=== PATIENT | female | born 1945 | race Caucasian/White ===

== ENCOUNTER 2024-06-23 23:31 | Emergency (ER) | payer MEDICARE, BC, SELFPAY ==
[2024-06-23 23:35] VITALS: BP 147/78
[2024-06-24] VITALS: BP 136/75
[2024-06-24 00:10] LABS: % Basophils 0.3 % (0-2); % Eosinophils 1.4 % (0-6); % Immature Granulocytes 0.3 % (0-0.5); % Lymphocytes 18.1 % (20.5-51.1); % Monocytes 10.2 % (1.7-9.3); % Neutrophils 69.7 % (42.2-75.2); Absolute Eosinophils 0.1 10^3/uL (0-0.7); Absolute Lymphocytes 1.1 10^3/uL (1.2-3.4); Absolute Monocytes 0.6 10^3/uL (0.1-0.6); Absolute Neutrophils 4.1 10^3/uL (1.4-6.5); Hematocrit 32.3 % (37.0-47.0); Hemoglobin 11.4 g/dL (12.0-16.0); Mean Corp Hgb Conc. 35.3 g/dL (33.0-37.0); Mean Corpuscular Hgb 31.5 pg (27.0-31.0); Mean Corpuscular Volume 89.2 fL (81.0-99.0); Mean Platelet Volume 9.2 fL (7.4-10.4); Nucleated Red Blood Cells % 0 %; Platelet Count 273 10^3/uL (130-400); Red Blood Cell Count 3.62 10^6/uL (4.20-5.40); Red Cell Dist. Width 12.9 % (11.5-14.5); White Blood Cell Count 5.8 10^3/uL (4.8-10.8)
--- NOTE | 2024-06-24 00:16 | ED.GENMED ---
History of Present Illness
General
Chief Complaint: Change Level of Consciousness
Source: patient, family and witness
Exam Limitations: none
Time Seen by Provider: 06/23/24 23:36
Nursing documentation reviewed up to this point in time: agreed with
History of Present Illness
History of Present Illness:
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
did not strike her head no vomiting no bowel or bladder incontinence no tongue bite now feels a little bit dizzy with a dry mouth but no other complaints no chest pain no shortness of breath no abdominal pain no diarrhea no dysuria or frequency no
history of seizures
Past History
Past History
ED Past Medical History: Other (Parkinson's); Negative Seizures
ED Past Surgical History: Brain (Deep brain)
Social History
Tobacco: Non-smoker
Alcohol: Occasional
Drug: None
Personal:
Living: with family
Employment: Retired
Review of Systems
Review of Systems
All Other Systems: Not applicable
Constitutional: Denies fever or fatigue
EENT: Reports no symptoms
Respiratory: Reports no symptoms
Cardiac: Reports no symptoms
ABD/GI: Reports no symptoms; Denies nausea or diarrhea
: Reports no symptoms
Neurological: Reports dizzy; Denies headache
Endocrine: Reports no symptoms
Phy Exam
Physical Exam
Physical Exam:
Physical Exam
General: no apparent distress, not acutely ill
Neck: Dry lips no tongue bite
Heart: s1/s2 regular rate and rhythm, no murmur. equal radial pulses.
Lungs: no acute respiratory distress. clear bilaterally
Abdomen: Not tender
Neuro: alert and oriented. no focal neurological deficits
Skin: no rash
Psychiatric: well kept. interactive and cooperative
Extremities: no edema.
Course
Orders/Labs/Results
Orders:
Orders
06/23/24 23:58
Alcohol Urgent
Complete Blood Count/With Diff Urgent
Comprehensive Metabolic Panel Urgent
Troponin I Urgent
06/24/24 00:09
0.9% Sodium Chloride 1000 ml [Nss] 1,000 ml IV BOLUS
Abnormal Lab Results
06/23/24
23:58
RBC 3.62 L 10^6/uL
(4.20-5.40)
Hgb 11.4 L g/dL
(12.0-16.0)
Hct 32.3 L %
(37.0-47.0)
MCH 31.5 H pg
(27.0-31.0)
Absolute Lymphs (auto) 1.1 L 10^3/uL
(1.2-3.4)
Lymphocytes % 18.1 L %
(20.5-51.1)
Monocytes % 10.2 H %
(1.7-9.3)
Carbon Dioxide 21 L mmol/L
(22-30)
BUN 18 H mg/dl
(7-17)
Glucose 108 H mg/dl
(70-99)
06/23/24 23:58
06/23/24 23:58
Vital Signs
Initial and Last Documented VS:
Initial Vital Signs
Temp Pulse Resp Pulse Ox
98.4 F 92 17 97
06/23/24 23:35 06/23/24 23:35 06/23/24 23:35 06/23/24 23:35
Last Documented Vital Signs
Temp Pulse Resp Pulse Ox
98.4 F 92 17 96
06/23/24 23:35 06/23/24 23:35 06/23/24 23:35 06/23/24 23:47
MDM/Problems Addressed
Differential Diagnosis Includes:
Vasovagal dehydration EtOH intoxication arrhythmia less likely seizure doubt CVA
MDM/Problems Addressed:
Near syncope
Chronic conditions affecting care: Neurological disorder
Acute Exacerbation and/or Progression of Chronic Illness: Neurological disorder
*Pulse Oximetry
Patient hypoxic: no
*EKG
Interpreted by ED Provider?: Yes
Interpretation: abnormal
Comparison EKG: no comparison EKG present
Heart Rate: 78
Rate: normal
Rhythm: sinus
Ischemia: non-specific ST changes
*Victim Witness Administrator Interpretation
Rate: normal
Interpretation: normal
Heart Rate: 78
Rhythm: sinus
*Critical Care Note
Total Time (30-74mins, 75-104mins- exclusive of procedures): Not Applicable
Update Note
Update Note:
Update, patient feeling better after some fluids eating and drinking
No arrhythmia on telemetry normal mental status
ED Attending Note
-
Portions of this chart may have been created with voice recognition software.� Occasional wrong word or��sound alike� substitutions may have occurred due to the inherent limitations of voice recognition software.
Discharge Plan
Departure
Patient Disposition: Home (Routine Discharge)
Date of Disposition: 06/24/24
Time of Disposition: 00:30
Patient with high blood pressure during this ER visit?: No
Condition: Good
Discharge Problem:
Syncope and collapse
Instructions: Syncope (Fainting) (DC)
Referrals:
UNKNOWN - PT DOES,NOT KNOW [Family Provider] -
Activity Restrictions/Additional Instructions:
Drink plenty of fluids limit your alcohol intake
Interventions
Interventions:
*Risk Screen - Suicide Last Done: 06/23/24 23:35
*General Assessment Last Done: 06/23/24 23:35
*Neglect/Abuse Screening Last Done: 06/23/24 23:35
ED- Fall Risk Assessment Last Done: 06/23/24 23:47
ED- Cardiac Assessment Last Done: 06/23/24 23:47
ED- Neurological Assessment Last Done: 06/23/24 23:47
ED-Psychological Assessment Last Done: 06/23/24 23:47
ED- Pulmonary Assessment Last Done: 06/23/24 23:47
Discharge Date and Time
Print Language: CZECH
[2024-06-24] MEDS: NSS 1000 IV (00:18)
[2024-06-24 00:23] LABS: ALT (SGPT) < 10 U/L (0-35); AST (SGOT) 18 U/L (14-36); Albumin 4.1 g/dl (3.5-5.0); Alkaline Phosphatase 103 U/L (38-126); Blood Urea Nitrogen 18 mg/dl (7-17); Calcium 9.2 mg/dl (8.4-10.2); Carbon Dioxide 21 mmol/L (22-30); Chloride 106 mmol/L (98-107); Glucose 108 mg/dl (70-99); Potassium 3.7 mmol/L (3.5-5.1); Sodium 136 mmol/L (135-145); Total Bilirubin 0.4 mg/dl (0.2-1.3); Total Protein 6.4 g/dl (6.3-8.2); eGFR > 60.00
[2024-06-24 00:29] LABS: Alcohol None Detected
[2024-06-24 00:30] VITALS: BP 123/80
[2024-06-24 00:36] LABS: Troponin I < 0.012 ng/ml
== END 2024-06-24 01:42 | disposition home or self-care (01) ==
LOC: EMR 23:31
PROVIDERS: EMERGENCY PHYSICIAN Emergency Medicine
DX: R55 Syncope and collapse (principal); G20.A1 Parkinson's disease without dyskinesia, without mention of fluctuations
CPT/HCPCS: 99283; 80053; 82077; 84484; 85025; 93005

== ENCOUNTER 2024-09-23 17:33 | Emergency (ER) | payer MEDICARE, BC, SELFPAY ==
[2024-09-23 17:35] VITALS: BP 144/91; BMI 21.8
[2024-09-23 17:38] VITALS: BP 144/91
[2024-09-23 17:50] LABS: % Basophils 0.3 % (0-2); % Eosinophils 0.7 % (0-6); % Immature Granulocytes 0.2 % (0-0.5); % Lymphocytes 9.4 % (20.5-51.1); % Monocytes 10.3 % (1.7-9.3); % Neutrophils 79.1 % (42.2-75.2); Absolute Lymphocytes 0.6 10^3/uL (1.2-3.4); Absolute Monocytes 0.6 10^3/uL (0.1-0.6); Absolute Neutrophils 4.6 10^3/uL (1.4-6.5); Hematocrit 34.9 % (37.0-47.0); Hemoglobin 12.3 g/dL (12.0-16.0); Mean Corp Hgb Conc. 35.2 g/dL (33.0-37.0); Mean Corpuscular Hgb 30.8 pg (27.0-31.0); Mean Corpuscular Volume 87.5 fL (81.0-99.0); Mean Platelet Volume 9.3 fL (7.4-10.4); Nucleated Red Blood Cells % 0 %; Platelet Count 324 10^3/uL (130-400); Red Blood Cell Count 3.99 10^6/uL (4.20-5.40); Red Cell Dist. Width 12.5 % (11.5-14.5); White Blood Cell Count 5.8 10^3/uL (4.8-10.8)
[2024-09-23 17:55] LABS: Glucose - Point of Care 113 mg/dl (70-99)
[2024-09-23 18:00] VITALS: BP 141/77
[2024-09-23 18:05] LABS: ALT (SGPT) < 10 U/L (0-35); AST (SGOT) 19 U/L (14-36); Albumin 4.3 g/dl (3.5-5.0); Alkaline Phosphatase 110 U/L (38-126); Blood Urea Nitrogen 22 mg/dl (7-17); Calcium 9.9 mg/dl (8.4-10.2); Carbon Dioxide 20 mmol/L (22-30); Chloride 103 mmol/L (98-107); Estimated Creatinine Clearance 40 ml/min; Glucose 132 mg/dl (70-99); Potassium 3.5 mmol/L (3.5-5.1); Sodium 139 mmol/L (135-145); Total Bilirubin 0.9 mg/dl (0.2-1.3); Total Protein 6.8 g/dl (6.3-8.2); eGFR 51.75
[2024-09-23 18:15] LABS: Troponin I 0.022 ng/ml
[2024-09-23 19:00] VITALS: BP 113/57
--- NOTE | 2024-09-23 19:54 | ED.GENMED ---
History of Present Illness
General
Chief Complaint: Fainting/Passed Out
Source: patient and spouse
Exam Limitations: none
Time Seen by Provider: 09/23/24 18:03
Nursing documentation reviewed up to this point in time: agreed with
History of Present Illness
History of Present Illness:
79-year-old female past medical history of Parkinson's presenting to the emergency department today with concerns of a fall from standing prior to arrival. She is unsure if she lost consciousness or had a syncopal episode but did feel somewhat
lightheaded. Denies any head trauma and was witnessed directly by the and ensured that there was no significant trauma and he was able to help catch her before she fell. Otherwise denies any additional symptoms no chest pain palpitations
shortness of breath. No numbness or weakness
Past History
Past History
ED Past Medical History: Other (Parkinson's); Negative Seizures
ED Past Surgical History: Brain (Deep brain)
Social History
Tobacco: Non-smoker
Alcohol: Occasional
Drug: None
Personal:
Living: with family
Employment: Retired
Review of Systems
Review of Systems
Allergies reviewed?: Yes
All Other Systems: ROS reviewed and negative except as documented in HPI and ROS
Phy Exam
Physical Exam
Physical Exam:
GENERAL: Alert , in no apparent distress
EYE: pupils equal and reactive
NECK: Supple, no significant adenopathy.
ENT: o/p clr, mmm.
CARDIAC: Regular rate and rhythm .
LUNGS: Clear breath sounds bilaterally, no acute respiratory distress, no wheezes/rales/rhonchi
ABDOMEN: Soft, without focal tenderness, no r/g, no cvat
NEUROLOGICAL: Alert and oriented, no focal neuro deficits
SKIN: Warm and dry, skin intact.
MUSCULOSKELETAL: No edema, well perfused.
PSYCH: Normal and appropriate interaction.
Course
Orders/Labs/Results
Orders:
Orders
09/23/24 17:42
Electrocardiogram (*1) Urgent
Reason for Study: Syncope
EKG- Treatment ONCE
09/23/24 17:43
Complete Blood Count/With Diff Urgent
Comprehensive Metabolic Panel Urgent
Troponin I Urgent
Abnormal Lab Results
09/23/24 09/23/24
17:43 17:53
RBC 3.99 L 10^6/uL
(4.20-5.40)
Hct 34.9 L %
(37.0-47.0)
Absolute Lymphs (auto) 0.6 L 10^3/uL
(1.2-3.4)
Neutrophils % 79.1 H %
(42.2-75.2)
Lymphocytes % 9.4 L %
(20.5-51.1)
Monocytes % 10.3 H %
(1.7-9.3)
Carbon Dioxide 20 L mmol/L
(22-30)
BUN 22 H mg/dl
(7-17)
Creatinine 1.1 H mg/dL
(0.6-1.0)
Glucose 132 H mg/dl
(70-99)
POC Glucose 113 H mg/dl
(70-99)
09/23/24 17:43
09/23/24 17:43
Vital Signs
Initial and Last Documented VS:
Initial Vital Signs
Temp Pulse Resp BP Pulse Ox
98.1 F 76 18 144/91 94
09/23/24 17:35 09/23/24 17:35 09/23/24 17:35 09/23/24 17:35 09/23/24 17:35
Last Documented Vital Signs
Temp Pulse Resp BP Pulse Ox
98.1 F 75 21 113/57 97
09/23/24 17:35 09/23/24 19:00 09/23/24 19:00 09/23/24 19:00 09/23/24 19:21
MDM/Problems Addressed
MDM/Problems Addressed:
79-year-old female presenting to the emergency department after an episode when she was standing up and started to fall to the ground was caught by the she denies any full loss of consciousness but it is somewhat unclear if she has some
trouble with memory. Otherwise acting her self at baseline at this point no symptoms denies chest pain shortness of breath palpitations. Here EKG unchanged vital signs normal labs unremarkable and at patient's baseline. Patient here able to
ambulate well stable for outpatient management return precautions given.
*Critical Care Note
Total Time (30-74mins, 75-104mins- exclusive of procedures): Not Applicable
ED Attending Note
-
Portions of this chart may have been created with voice recognition software.� Occasional wrong word or��sound alike� substitutions may have occurred due to the inherent limitations of voice recognition software.
Discharge Plan
Departure
Patient Disposition: Home (Routine Discharge)
Date of Disposition: 09/23/24
Time of Disposition: 19:55
Patient with high blood pressure during this ER visit?: No
Condition: Good
Covid-19: Not Applicable
Discharge Problem:
Syncope
Instructions: Syncope (Fainting) (DC)
Referrals:
UNKNOWN - PT DOES,NOT KNOW [Family Provider] -
Activity Restrictions/Additional Instructions:
You came to the emergency department today after a fall. Here you had a reassuring assessment. Please follow-up closely with the primary care doctor within 1 week for reassessment. Immediately return for any worsening, new or concerning symptoms.
Interventions
Interventions:
*Risk Screen - Suicide Last Done: 09/23/24 17:35
*General Assessment Last Done: 09/23/24 17:35
*Neglect/Abuse Screening Last Done: 09/23/24 17:35
ED- Fall Risk Assessment Last Done: 09/23/24 19:21
*Nursing Disposition Last Done: 09/23/24 20:26
ED- Cardiac Assessment Last Done: 09/23/24 19:21
ED- Neurological Assessment Last Done: 09/23/24 19:21
Discharge Date and Time
Discharge Date/Time: 09/23/24 20:27
Print Language: TURKMEN
== END 2024-09-23 20:27 | disposition home or self-care (01) ==
LOC: EMR 17:33
PROVIDERS: EMERGENCY PHYSICIAN Emergency Medicine
DX: R55 Syncope and collapse (principal); W18.30XA Fall on same level, unspecified, initial encounter; G20.A1 Parkinson's disease without dyskinesia, without mention of fluctuations
CPT/HCPCS: 99283; 80053; 82962; 84484; 85025; 93005

== ENCOUNTER 2025-02-18 16:13 | Inpatient (IN) | payer MEDICARE, BC, SELFPAY ==
[2025-02-18] VITALS (7 sets, daily range): BP systolic 93–137; BP diastolic 53–85; BMI 20.8; BMI 18.1
--- NOTE | 2025-02-18 12:12 | ED.GENMED ---
History of Present Illness
General
Chief Complaint: Urinary Symptoms
Source: patient and family (Patient's daughter and at bedside contributing to history)
Exam Limitations: altered mental status
Time Seen by Provider: 02/18/25 11:53
Nursing documentation reviewed up to this point in time: agreed with
History of Present Illness
History of Present Illness:
Patient is a 79-year-old female with history of Parkinson's presenting to the emergency department for evaluation of altered mental status and weakness since Wednesday. Patient's family states that she has been generally confused and also
experiencing some hallucinations. Apparently she was trying to buy [employer] gifts this week. In addition�patient has been very weak and unable to ambulate. She has suffered multiple falls this week due to weakness. She was seen by her primary
care on Wednesday where they performed a urinalysis which was supposedly positive and patient was started on ciprofloxacin. Urine culture has not resulted yet.
Patient denies any fevers, cough, vomiting, abdominal pain. No chest pain or shortness of breath. Patient denies any numbness/tingling in bilateral lower extremities.
Patient has had frequent UTIs over the past few months�apparently is a prophylactic antibiotic daily although unsure what the name is.
Patient not on any blood thinners.
Past History
Past History
ED Past Medical History: Other (Parkinson's); Negative Seizures
ED Past Surgical History: Brain (Deep brain)
Social History
Tobacco: Non-smoker
Alcohol: Occasional
Drug: None
Personal:
Living: with family
Employment: Retired
Review of Systems
Review of Systems
Allergies reviewed?: Yes
All Other Systems: ROS reviewed and negative except as documented in HPI and ROS
Phy Exam
Physical Exam
Physical Exam:
Vitals: Patient's vital signs are stable. Afebrile
General: Patient is well appearing, no acute distress toxic-appearing
Skin: Warm and dry, no rashes or lesions
Head: Normocephalic, atraumatic
Eyes: Sclera nonicteric. EOMs intact. No nystagmus.
Throat: Protecting airway
Neck: Normal ROM, no cervical spine tenderness, no meningismus
Cardiac: Regular rate and rhythm, no murmurs.
Pulm: Normal respiratory effort, no wheezes, rales, rhonchi heard on exam.
Abdomen: Abdomen soft. No abdominal tenderness. No rebound tenderness or guarding.
Extremities: Bilateral upper and lower extremities atraumatic and nontender with full range of motion. Strength 5/5 and equal in extremities
Neuro: AAOx3. Fluid speech. Sensation intact. No gross deficits.
Psychiatric: Normal affect.
Course
Orders/Labs/Results
Orders:
Orders
02/18/25 Lunch
Regular
At Your Request: Full Participation
Does patient need a safe tray?: No
02/18/25 12:08
0.9% Sodium Chloride 1000 ml [Nss] 1,000 ml IV BOLUS
02/18/25 12:09
Electrocardiogram (*1) Urgent
Reason for Study: Fatigue / Weakness
CT Head W/o Iv Contrast Urgent
Comment:
Reason For Exam: confusion
EKG- Treatment ONCE
02/18/25 12:27
Complete Blood Count/With Diff Urgent
Comprehensive Metabolic Panel Urgent
Influenza A+B Rapid Molecular Urgent
RAVI Source: Nasal Swab
Specimen Description:
02/18/25 12:28
COVID-19 Antigen Urgent
Source: Nasal Swab
Urinalysis Reflex To Culture Urgent
Date Specimen was Collected: 02/18/25
Time Specimen was Collected: 12:23
Urine Microscopic Reflex Cult Urgent
Urine Culture Urgent
RAVI Source: U
Specimen Description:
Date Specimen was Collected: 02/18/25
Time Specimen was Collected: 12:23
02/18/25 14:37
CefTRIAXone [Rocephin] 1,000 mg IV NOW STA
02/18/25 15:59
Admit/Transfer Patient As Directed
Co-Sign Provider:
Level of Care: Inpatient admission
Assign to:: Medical/Surgical
Physician / Group: harley bull
Diagnosis: AMS, prob UTI
Reason for Hospitalization: AMS, prob UTI
Expected length of stay greater than two midnights?: Yes
ELOS- Estimated Length of Stay in days: 2
I certify the patient meets the requirements for IP care: Yes
PRN Pain Medication Management As Directed
May give lesser potent ordered pain med per pt: Yes
preference::
Protocol:: Medication orders for pain may be administered in a
manner that supports deferring to patient preference
when the pt is:
- Requesting an ordered lesser potent pain medication.
Least to most potent pain medications are defined
as: acetaminophen < NSAID < tramadol < opioids
(morphine, oxycodone, hydromorphone).
- Requesting a lesser dose of the same medication IF
ORDERED.
- Requesting a less intrusive route of administration
if both routes are prescribed by the provider (PO <
IV).
02/18/25 16:01
Code Status As Directed
Resuscitation Status: Do not resuscitate
Reached after discussion with pt or family/Healthcare POA: Yes
02/18/25 16:02
DNR Bracelet Application ONCE
02/18/25 18:16
Acetaminophen [Tylenol] 650 mg PO Q4HPRN PRN
Enoxaparin Sodium [Lovenox] 40 mg SC QPM
Polyethylene Glycol Powder [Miralax] 17 grams PO DAILYPRN PRN
02/18/25 18:16
Activity As Directed
Activity Level: Ambulate
Vital Signs As Directed
Frequency: Per unit guidelines
Ot Eval And Treat Routine
Pt Eval And Treat Routine
Activity Level: Ambulate
DX Deep Vein Thrombosis Video Routine
02/18/25 20:00
Levetiracetam [Keppra] 500 mg PO BID
02/18/25 22:00
Carbidopa/Levodopa [Sinemet 25-100] 2 tablet PO TID
Clonazepam [Klonopin] 1.5 mg PO HS
Melatonin 5 mg PO HSPRN PRN
Quetiapine Fumarate [Seroquel] 25 mg PO HS
amantadine HCl [Gocovri] 274 mg PO HS
02/19/25 08:00
Amlodipine [Norvasc] 5 mg PO DAILY
Rasagiline Mesylate 1 mg PO DAILY
carbidopa 25 mg PO DAILY
02/19/25 14:00
CefTRIAXone [Rocephin] 1,000 mg IV Q24H
Abnormal Lab Results
02/18/25 02/18/25
12:27 12:28
RBC 3.86 L 10^6/uL
(4.20-5.40)
Hgb 11.8 L g/dL
(12.0-16.0)
Hct 34.9 L %
(37.0-47.0)
Absolute Lymphs (auto) 0.5 L 10^3/uL
(1.2-3.4)
Absolute Monos (auto) 0.8 H 10^3/uL
(0.1-0.6)
Neutrophils % 79.4 H %
(42.2-75.2)
Lymphocytes % 7.6 L %
(20.5-51.1)
Monocytes % 11.1 H %
(1.7-9.3)
Chloride 108 H mmol/L
(98-107)
Carbon Dioxide 20 L mmol/L
(22-30)
BUN 19 H mg/dl
(7-17)
Total Bilirubin 1.5 H mg/dl
(0.2-1.3)
Alkaline Phosphatase 134 H U/L
(38-126)
Urine Ketones 3+ A
(Negative)
Leukocyte Esterase Rfl 2+ A
(Negative)
Urine RBC 3-6 A /HPF
(0-2)
Urine WBC (Reflex) 30-40 A /HPF
(0-5)
Urine Bacteria (Reflex) Many A
(Negative)
Urine Albumin (Reflex) 3+ A
(Neg - Trace)
02/18/25 12:27
02/18/25 12:27
Vital Signs
Initial and Last Documented VS:
Initial Vital Signs
Temp Pulse Resp BP Pulse Ox
98.8 F 81 16 137/85 98
02/18/25 11:16 02/18/25 11:16 02/18/25 11:16 02/18/25 11:16 02/18/25 11:16
Last Documented Vital Signs
Temp Pulse Resp BP Pulse Ox
97.7 F 78 16 135/70 95
02/18/25 18:28 02/18/25 18:28 02/18/25 18:28 02/18/25 18:28 02/18/25 18:28
MDM/Problems Addressed
Differential Diagnosis Includes:
Not limited to: Acute dehydration, UTI, viral illness, intracranial hemorrhage, etc.
MDM/Problems Addressed:
79-year-old female with 5 days of confusion and generalized weakness suffering frequent falls. No fever, chills, vomiting, abdominal pain. Patient has been dealing with frequent UTIs over the past few months. Patient mildly hypertensive on
arrival, otherwise with stable vital signs. Physical exam as above. Patient arrives alert and oriented x 3 with no focal deficits on exam. No evidence of traumatic head or extremity injury. Cardio/pulmonary assessment unremarkable. Abdomen
benign. Differential broad at this time. Will send screening labs, urinalysis, viral swabs. Will check EKG. Given history of recent falls and new onset confusion�will obtain head CT. Will give IV fluids.
Update: Labs reviewed mild acidosis likely secondary to dehydration. Otherwise no clinically significant abnormalities. Urine infected although does appear contaminated. Patient is currently on ciprofloxacin which may be leading to difficulties
in interpreting UA. Urine culture will be sent. Viral swabs negative. Head CT without acute abnormalities. Patient hemodynamically stable and nontoxic-appearing. However�given suspected UTI with associated altered mental status, weakness and
frequent falls�will admit patient to hospital for IV antibiotic and further patient and patient's family comfortable with plan. Patient was accepted to hospital service in stable condition
Chronic conditions affecting care:
Parkinson's
Acute Exacerbation and/or Progression of Chronic Illness:
Acute UTI
*Radiology
Radiology exam reviewed: radiology read reviewed (Head CT without acute abnormality)
*Pulse Oximetry
Patient hypoxic: no
*EKG
Interpreted by ED Provider?: Yes
EKG Intrepretation Date: 02/18/25
Interpretation: abnormal
Comparison EKG: changes noted
Heart Rate: 67
Rate: normal
Rhythm: sinus
[place]bee: left axis deviation
Interval: long QT
QRS Pattern: left vent hypertrophy
Ischemia: non-specific ST changes
*Horticulture/Floriculture Teacher Interpretation
Rate: Horticulture/Floriculture Teacher- N/A
*Critical Care Note
Total Time (30-74mins, 75-104mins- exclusive of procedures): Not Applicable
Patient Management
Discussion with other providers: Hospitalist
Escalation/DeEscalation of care consider admission/obs:
Admit for IV antibiotics/further management
ED Attending Note
-
Portions of this chart may have been created with voice recognition software.� Occasional wrong word or��sound alike� substitutions may have occurred due to the inherent limitations of voice recognition software.
Discharge Plan
Departure
Patient Disposition: Admit
Date of Disposition: 02/18/25
Time of Disposition: 14:34
Presentation/result/management discussed w/ accepting MD/DO: Hospitalist
Discharge Problem:
Altered mental status, Generalized weakness, Acute UTI
Interventions
Interventions:
*Risk Screen - Suicide Last Done: 02/18/25 11:16
*General Assessment Last Done: 02/18/25 14:00
*Neglect/Abuse Screening Last Done: 02/18/25 11:16
*ED COVID-19 Vaccine History Last Done: 02/18/25 14:00
*Nursing Disposition Last Done: 02/18/25 18:08
ED-Female Genitourinary Assessment Last Done: 02/18/25 14:00
Discharge Date and Time
Discharge Date/Time: 02/18/25 18:09
[2025-02-18 12:37] LABS: % Basophils 0.3 % (0-2); % Eosinophils 1.3 % (0-6); % Immature Granulocytes 0.3 % (0-0.5); % Lymphocytes 7.6 % (20.5-51.1); % Monocytes 11.1 % (1.7-9.3); % Neutrophils 79.4 % (42.2-75.2); Absolute Eosinophils 0.1 10^3/uL (0-0.7); Absolute Lymphocytes 0.5 10^3/uL (1.2-3.4); Absolute Monocytes 0.8 10^3/uL (0.1-0.6); Absolute Neutrophils 5.5 10^3/uL (1.4-6.5); Hematocrit 34.9 % (37.0-47.0); Hemoglobin 11.8 g/dL (12.0-16.0); Mean Corp Hgb Conc. 33.8 g/dL (33.0-37.0); Mean Corpuscular Hgb 30.6 pg (27.0-31.0); Mean Corpuscular Volume 90.4 fL (81.0-99.0); Mean Platelet Volume 9.5 fL (7.4-10.4); Nucleated Red Blood Cells % 0 %; Platelet Count 297 10^3/uL (130-400); Red Blood Cell Count 3.86 10^6/uL (4.20-5.40); Red Cell Dist. Width 13.2 % (11.5-14.5); White Blood Cell Count 6.9 10^3/uL (4.8-10.8)
[2025-02-18 12:39] LABS: Urine Albumin 3+ (Neg - Trace); Urine Bilirubin Negative (Negative); Urine Character Clear (Clear); Urine Color Yellow; Urine Glucose Negative (Negative); Urine Ketone 3+ (Negative); Urine Leukocyte 2+ (Negative); Urine Nitrite Negative (Negative); Urine Occult Blood Negative (Negative); Urine Specific Gravity 1.025 (<1.030); Urine Urobilinogen 1+ (Neg - 1+)
[2025-02-18 12:49] LABS: ALT (SGPT) < 10 U/L (0-35); AST (SGOT) 23 U/L (14-36); Albumin 4.9 g/dl (3.5-5.0); Alkaline Phosphatase 134 U/L (38-126); Blood Urea Nitrogen 19 mg/dl (7-17); Calcium 8.4 mg/dl (8.4-10.2); Carbon Dioxide 20 mmol/L (22-30); Chloride 108 mmol/L (98-107); Glucose 97 mg/dl (70-99); Potassium 4.3 mmol/L (3.5-5.1); Sodium 142 mmol/L (135-145); Total Bilirubin 1.5 mg/dl (0.2-1.3); Total Protein 7.6 g/dl (6.3-8.2); eGFR 58.02
[2025-02-18 12:53] LABS: Urine Mucus Few; Urine Squamous Cell >30 /LPF (Few)
[2025-02-18] MEDS: NSS 1000 IV (12:53)
[2025-02-18 12:54] LABS: Urine Hyaline Cast 0-2 /LPF (0-2)
[2025-02-18 12:55] LABS: Urine Bacteria Many (Negative); Urine White Cell 30-40 /HPF (0-5)
[2025-02-18 12:58] LABS: COVID-19 Antigen Negative (Negative)
[2025-02-18] MEDS: ROCEPHIN 1000 MG IV (15:15)
--- NOTE | 2025-02-18 15:42 | HPS.HSE ---
Family Physician
-
Family Physician: Rachael Adames, DO
Chief Complaint
-
Weakness, confusion
History of Present Illness
79-year-old female with a past medical history of Parkinson's disease, hypertension, and anxiety, who presents with a 3-day history of weakness and confusion. Family reports that patient has been having behavioral confusion, trying to by [place]
g[employer] this week. Family states patient is talking to people that are not there. She has been weak, and has had multiple falls. She was seen by her PCP 2 days ago. Her UA was suggestive of a UTI, and she was treated with ciprofloxacin, which she
has taken for 2 days. Daughter states that today, her mentation is better. However, patient continues to be weak. She denies chest pain, shortness of breath, or palpitations. No headache, no fever, no vomiting. No dysuria. No abdominal pain.
No black or bloody stools. Patient is independent with walking at baseline.
Medical History
Past Medical History
Past Medical History: Reports Other
Additional Past Medical History:
Parkinson's disease
Essential hypertension
Anxiety
Past Surgical History: Reports Other
Additional Past Surgical History:
Left hand surgery
Deep brain stimulator
Social History
Tobacco: Non-smoker
Alcohol: Occasional
Drug: None
Personal:
Living: With Family
Family History
Family History: Not pertinent
Allergies / Home Medications
Allergies reflects when Allergies were last updated in [facility].
Home Medications with original date entered in [facility]
Allergy/Medication List:
Allergies
Allergy/AdvReac Type Severity Reaction Status Date / Time
No Known Allergies Allergy Verified 02/18/25 11:18
Home Medications Table - record
�Medication �Instructions �Recorded �Confirmed
amantadine HCl 137 mg 274 mg PO HS 02/18/25 02/18/25
capsule,extended release 24 hr
(Gocovri)
amlodipine 5 mg tablet (Norvasc) 5 mg PO DAILY 02/18/25 02/18/25
carbidopa 25 mg tablet 25 mg PO DAILY 02/18/25 02/18/25
carbidopa 25 mg-levodopa 100 mg 2 tab PO TID 02/18/25 02/18/25
tablet
ciprofloxacin HCl 250 mg tablet 250 mg PO BID 02/18/25 02/18/25
clonazepam 0.5 mg tablet 1.5 mg PO HS 02/18/25 02/18/25
levetiracetam 500 mg tablet 500 mg PO BID 02/18/25 02/18/25
(Keppra)
melatonin 5 mg tablet 5 mg PO HSPRN PRN sleep 02/18/25 02/18/25
quetiapine 25 mg tablet (Seroquel) 25 mg PO HS 02/18/25 02/18/25
rasagiline 1 mg tablet 1 mg PO DAILY 02/18/25 02/18/25
Review of Systems
-
A 12 point ROS was completed and negative except as noted: Yes
Physical Exam
Vital Signs
Vital Signs
Temp Pulse Resp BP Pulse Ox
98.8 F 81 16 137/85 98
02/18/25 11:16 02/18/25 11:16 02/18/25 11:16 02/18/25 11:16 02/18/25 11:16
Physical Exam
General: Well Developed and No Apparent Distress
HEENT: NormoCephalic, Anicteric and Moist mucous membranes
Respiratory: Clear
Cardiac: S1/S2 and Regular Rhythm
GI: Soft, Non Tender, Non Distended and Normal Bowel Sounds
Musculoskeletal: No Clubbing, No Cyanosis and No Edema
Skin: Warm and Dry
Neuro: Awake, Alert and Oriented
Psych: Calm
Laboratory Results
-
02/18/25 12:27
02/18/25 12:27
Laboratory Results
Total Bilirubin 1.5 mg/dl (0.2-1.3) H 02/18/25 12:27
AST 23 U/L (14-36) 02/18/25 12:27
ALT < 10 U/L (0-35) 02/18/25 12:27
Alkaline Phosphatase 134 U/L (38-126) H 02/18/25 12:27
Impression/Plan
-
HPI: 79-year-old female with a past medical history of Parkinson's disease, hypertension, and anxiety, who presents with a 3-day history of weakness and confusion. Family reports that patient has been having behavioral confusion, trying to by
[place] [employer] this week. Family states patient is talking to people that are not there. She has been weak, and has had multiple falls. She was seen by her PCP 2 days ago. Her UA was suggestive of a UTI, and she was treated with ciprofloxacin,
which she has taken for 2 days. Daughter states that today, her mentation is better. However, patient continues to be weak. She denies chest pain, shortness of breath, or palpitations. No headache, no fever, no vomiting. No dysuria. No
abdominal pain. No black or bloody stools. Patient is independent with walking at baseline.
#Acute urinary tract infection
Urine analysis shows possible UTI, but it is contaminated
Continue IV Rocephin for now, follow-up on urine cultures
#Acute toxic metabolic encephalopathy
Head CT negative for acute intracranial abnormality
She is oriented to person and place, and tells me it is January 21, 2025
Tells me she is in the hospital because she is weak
Improving, treat as above, continue supportive care
#Weakness
#Mechanical falls
Patient lives at home with , and is independent at baseline
Consult PT/OT
#Parkinson's disease
Continue home Sinemet
#Essential hypertension
Continue amlodipine 5 mg daily
#Anxiety
Continue Klonopin at bedtime
DVT prophylaxis�subcu Lovenox
DO NOT RESUSCITATE, confirmed with daughter on phone
Updated daughter on phone 02/18
Total time spent to see the patient on the floor, examine the patient, review data and lab results, discuss treatment plan with patient, nursing staff around 70 minutes.
[2025-02-18] MEDS: LOVENOX 40 MG SC (18:44)
--- NOTE | 2025-02-18 18:46 | PTCARENOTE ---
Patient admitted from the ER into room 403-02. Patient walked to the bed with two person assistance. Patient very unstable on her feet. Fall precautions reviewed with patient with verbalization of understanding not to get up on own. Bed alarm
intact. Vital signs stable. Patient oriented times two - confused to time but reoriented easily. Vital signs stable. Patient oriented to room and use of call m[place], bed and TV controls. Patient verbalizes understanding of teaching and denies
questions at this time.
[2025-02-18] MEDS: KEPPRA 500 MG PO (21:00)
[2025-02-18] MEDS: SINEMET 25-100 2 TABLET PO (21:01)
[2025-02-18] MEDS: SEROQUEL 25 MG PO (21:01)
[2025-02-18] MEDS: KLONOPIN 1.5 MG PO (21:01)
--- NOTE | 2025-02-19 05:59 | W.PN.HOSP.TC ---
Today's Communication/Plan
-
see a/p
Assessment / Plan
Assessment / Plan
Physical Exam
General: No Apparent Distress appears comfortable at this time
HEENT: NormoCephalic, Anicteric and Moist mucous membranes
Respiratory: Clear
Cardiac: S1/S2 and Regular Rhythm
GI: Soft, Non Tender, Non Distended and Normal Bowel Sounds
Musculoskeletal: No Clubbing, No Cyanosis and No Edema
Skin: Warm and Dry
Neuro: AOx3 conversant coherent, resting tremor, some/mild cogwheel rigidity noted upper ext's
Psych: Calm
HPI: 79-year-old female with a past medical history of Parkinson's disease, hypertension, and anxiety, who presents with a 3-day history of weakness and confusion. Family reports that patient has been having behavioral confusion, trying to by
[place] [employer] this week. Family states patient is talking to people that are not there. She has been weak, and has had multiple falls. She was seen by her PCP 2 days ago. Her UA was suggestive of a UTI, and she was treated with ciprofloxacin,
which she has taken for 2 days. Daughter states that today, her mentation is better. However, patient continues to be weak. She denies chest pain, shortness of breath, or palpitations. No headache, no fever, no vomiting. No dysuria. No
abdominal pain. No black or bloody stools. Patient is independent with walking at baseline.
#Acute urinary tract infection
Urine analysis shows possible UTI, but it is contaminated
Continue IV Rocephin for now, follow-up on urine cultures
#Acute toxic metabolic encephalopathy
Head CT negative for acute intracranial abnormality
AOx3, acknowledges that she was confused earlier, [employer]
Continues to endorse weakness
Improving, treat as above, continue supportive care
#Weakness
#Mechanical falls
Patient lives at home with , and is independent at baseline
Consult PT/OT appreciated SNF rehab
#Parkinson's disease
Continue home Sinemet
#Essential hypertension
Continue amlodipine 5 mg daily
#Anxiety
Continue Klonopin at bedtime
DVT prophylaxis�subcu Lovenox
DNR
Total time spent to see the patient on the floor, examine the patient, review data and lab results, discuss treatment plan with patient, nursing staff around 50 minutes.
Anticipated Discharge: 24 - 48 hours
Subjective/Interval History
-
Date of Service: February 19, 2025
Seen and examined at bedside in no acute distress. Overall reports feeling well. AOx3. Denies dysuria fever
Objective Data
-
Vital Signs:
Vital Signs
Temp Pulse Resp BP Pulse Ox
98.2 F 75 16 125/60 96
02/18/25 23:52 02/18/25 23:52 02/18/25 23:52 02/18/25 23:52 02/18/25 23:52
[2025-02-19 07:10] VITALS: BP 140/75
[2025-02-19] MEDS: RASAGILINE MESYLATE 1 MG PO (10:38)
[2025-02-19] MEDS: KEPPRA 500 MG PO ×2 (10:38→20:50)
[2025-02-19] MEDS: NORVASC 5 MG PO (10:38)
[2025-02-19] MEDS: SINEMET 25-100 2 TABLET PO ×3 (10:39→21:04)
[2025-02-19 14:00] VITALS: BP 143/72; PULSE 79
[2025-02-19 14:32] VITALS: BP 143/72; PULSE 79
[2025-02-19] MEDS: ROCEPHIN 1000 MG IV (14:49)
[2025-02-19] MEDS: FLUSH (NSS) 2 FLUSH IV (14:50)
[2025-02-19] MEDS: STERILE WATER FOR INJECTION 10 ML IV (14:50)
[2025-02-19 15:20] VITALS: BP 113/76
[2025-02-19 15:42] VITALS: BMI 18.1
--- NOTE | 2025-02-19 17:04 | CM ---
Alert awake oriented patient who lives with her Melchor who lives in a 2 story home with 21 steps to enter and bed bathroom on first floor. She is independent in driving and in all activities of daily living.She has [facility] now would like to
resume.
No adaptive devices
Never had [facility]
Pharmacy [facility]
PCP Dr Adames
PLAN Home with [facility]
[2025-02-19] MEDS: LOVENOX 40 MG SC (17:29)
[2025-02-19] MEDS: KLONOPIN 1.5 MG PO (21:03)
[2025-02-19] MEDS: SEROQUEL 25 MG PO (21:04)
[2025-02-19] MEDS: FLUSH (NSS) 1 FLUSH IV (21:06)
[2025-02-19 23:21] VITALS: BP 129/68
[2025-02-20] MEDS: RISPERDAL M-TAB (ORALLY DISINTEGRATING) 0.25 MG PO (02:03)
[2025-02-20] MEDS: MELATONIN 5 MG PO ×2 (02:04→22:53)
--- NOTE | 2025-02-20 06:15 | PTCARENOTE ---
Around 1:30 patient bed alarm off. Staff to room to find patient sitting on side of bed insisting on going outside. Unable to orient patient. She refused offer to assist to bedside commode, swatting staff hands to try to help her up. She then
began screaming repeatedly and was unable to redirect. Risperdal per order. Patient assisted back to bed. She remained cooperative throughout remainder of shift.
--- NOTE | 2025-02-20 07:18 | W.PN.HOSP.TC ---
Today's Communication/Plan
-
see a/p
Assessment / Plan
Assessment / Plan
Physical Exam
General: No Apparent Distress appears comfortable at this time
HEENT: NormoCephalic, Anicteric and Moist mucous membranes
Respiratory: Clear
Cardiac: S1/S2 and Regular Rhythm
GI: Soft, Non Tender, Non Distended and Normal Bowel Sounds
Musculoskeletal: No Clubbing, No Cyanosis and No Edema
Skin: Warm and Dry
Neuro: Lethargic but arousable, conversant coherent
Psych: Calm
HPI: 79-year-old female with a past medical history of Parkinson's disease, hypertension, and anxiety, who presents with a 3-day history of weakness and confusion. Family reports that patient has been having behavioral confusion, trying to by
[place] [employer] this week. Family states patient is talking to people that are not there. She has been weak, and has had multiple falls. She was seen by her PCP 2 days ago. Her UA was suggestive of a UTI, and she was treated with ciprofloxacin,
which she has taken for 2 days. Daughter states that today, her mentation is better. However, patient continues to be weak. She denies chest pain, shortness of breath, or palpitations. No headache, no fever, no vomiting. No dysuria. No
abdominal pain. No black or bloody stools. Patient is independent with walking at baseline.
#Acute urinary tract infection
Urine analysis shows possible UTI, but it is contaminated
Urine cx noted no growth though possibly false neg given patient on abx prior to admission
ceftriaxone switched to cefdinir, given persistent recurrent UTI may consider ppx hipprex following completion current abx regimen
daughter reports patient has appt with outpt Urology in April
#Possible Acute toxic metabolic encephalopathy
#required once dose risperdal overnight 02/19-02/20 d/t episode agitation confusion
#suspect sundowning, delirium, advancing Parkinson Dementia
#question possible polypharmacy contributing to confusion
Head CT negative for acute intracranial abnormality
Neuro psych eval requested
#B12 deficiency
supplementation started, cont
#Mild low TSH, T4 wnl
repeat thyroid function test in 1 month recommended
#Weakness
#Mechanical falls
Patient lives at home with , and is independent at baseline
Consult PT/OT appreciated SNF rehab
#Parkinson's disease
Continue home Sinemet amantadine rasagiline
#Essential hypertension
Continue amlodipine 5 mg daily
#Anxiety
Continue Klonopin at bedtime
Stage 1 coccyx pressure injury, POA
cont local wound care
Moderate protein calorie malnutrition
DVT prophylaxis�subcu Lovenox
DNR
discussed with patient and patient's daughter Cathy
Total time spent to see the patient on the floor, examine the patient, review data and lab results, discuss treatment plan with patient, nursing staff around 40 minutes.
Anticipated Discharge: 24 - 48 hours
Subjective/Interval History
-
Date of Service: February 20, 2025
required once low dose rispderal overnight due to episode confusion agitation. lethargic but arousable at time of evaluation. no acute distress, appears comfortable.
Objective Data
-
Labs:
Laboratory Results
02/20/25
06:00
WBC Pending
Hgb Pending
Hct Pending
Plt Count Pending
Sodium Pending
Potassium Pending
Chloride Pending
Carbon Dioxide Pending
BUN Pending
Creatinine Pending
Glucose Pending
Calcium Pending
Vital Signs:
Vital Signs
Temp Pulse Resp BP Pulse Ox
97.7 F 74 16 129/68 96
02/19/25 23:21 02/19/25 23:21 02/19/25 23:21 02/19/25 23:21 02/19/25 23:21
I&O
02/19/25 02/20/25 02/21/25
06:59 06:59 06:59
Intake Total 240 / 240 240 / 240
Balance 240 / 240 240 / 240
[2025-02-20 07:45] VITALS: BP 144/78
[2025-02-20 08:12] LABS: Hematocrit 34.9 % (37.0-47.0); Hemoglobin 11.6 g/dL (12.0-16.0); Mean Corp Hgb Conc. 33.2 g/dL (33.0-37.0); Mean Corpuscular Hgb 29.9 pg (27.0-31.0); Mean Corpuscular Volume 89.9 fL (81.0-99.0); Mean Platelet Volume 9.1 fL (7.4-10.4); Platelet Count 240 10^3/uL (130-400); Red Blood Cell Count 3.88 10^6/uL (4.20-5.40); Red Cell Dist. Width 13.2 % (11.5-14.5); White Blood Cell Count 3.2 10^3/uL (4.8-10.8)
--- NOTE | 2025-02-20 08:18 | PN.CDI ---
CDI
- -
CDI:
Physician Documentation Request
Admit Date: 02/18/25 16:13
Dear Doctor Sarah,
Patient admitted with UTI.
02/19 Nutrition note, 'With weight loss of > 10% in 6 months and < 75% estimated needs > 1 month pt meets AND/ASPEN criteria for moderate protein calorie malnutrition of chronic illness.'
Please provide in your note the diagnosis associated with the above nutrition findings and your assessment:
Moderate protein calorie malnutrition
Other
[place] Criteria (ACP Hospitalist 2017)
2 or more criteria must be present for either
non severe or severe malnutrition
Note that the criteria differs related to the
presence of an acute or chronic illness
Chronic Illness
Energy Intake Non Severe: <75% for >1 month
Severe: <75% for >1 month
Weight Loss Non Severe: 5% over 1 month
7.5% over 3 months
10% over 6 months
20% over 1 year
Severe: >5% over 1 month
>7.5% over 3 months
>10% over 6 months
>20% over 1 year
Body Fat Non Severe: Mild Loss
Severe: Severe Loss
Muscle Mass Non Severe: Mild Loss
Severe: Severe Loss
Fluid Accumulation Non Severe: Mild Accumulation
Severe: Moderate to severe
accumulation
Reduced Stapler Hand Strength Non Severe: N/A
Severe: Measurably reduced
Use of terms such as suspected, likely, concern for, or probable (associated with a specific diagnosis that is being evaluated, monitored, or treated as if it exists) are acceptable and can be coded in the inpatient setting, when documented at the
time of discharge.
Thank you,
Nereida SOODN,RN,CCDS
CDI Specialist
Available via [address] text
Please use your independent medical judgment in providing your response.
--- NOTE | 2025-02-20 08:28 | PN.CDI ---
CDI
- -
CDI:
Physician Documentation Request
Admit Date: 02/18/25 16:13
Dear Doctor Sarah,
Patient admitted with UTI.
02/18 Nursing skin assessment, 'Stage 1 coccyx pressure injury, POA.'
Physician documentation of the type and location of wounds is required for compliant documentation. Based on the above clinical findings and your assessment, please provide the following in your progress note:
Type (etiology) of ulcer/wound:
- Pressure (decubitus) ulcer
- Other
- Unable to determine
For a pressure ulcer, please also include the stage* of the ulcer:
- Stage 1 - Skin intact, non-blanchable redness
- Stage 2 - Partial thickness loss of dermis, includes intact or open blister
- Stage 3 - Full thickness tissue not including bone, tendon or muscle
- Stage 4 - Full thickness tissue loss, including exposed bone, tendon or muscle
- Unstageable - Full thickness loss in which the base of the ulcer is covered by slough (yellow, ray, gagnon, green or brown) and/or eschar (ray, brown or black) in the wound bed.
- Unable to determine
Use of terms such as suspected, likely, concern for, or probable (associated with a specific diagnosis that is being evaluated, monitored, or treated as if it exists) are acceptable and can be coded in the inpatient setting, when documented at the
time of discharge.
Thank you,
Nereida HOANG,RN,CCDS
CDI Specialist
Available via [employer] text
Please use your independent medical judgment in providing your response.
*Source: National Pressure Ulcer Advisory Panel (NPUAP)
[2025-02-20] MEDS: KEPPRA 500 MG PO ×2 (08:41→19:39)
[2025-02-20] MEDS: SINEMET 25-100 2 TABLET PO ×3 (08:41→21:52)
[2025-02-20] MEDS: NORVASC 5 MG PO (08:41)
[2025-02-20] MEDS: RASAGILINE MESYLATE 1 MG PO (08:41)
[2025-02-20 09:04] LABS: Blood Urea Nitrogen 13 mg/dl (7-17); Calcium 8.9 mg/dl (8.4-10.2); Carbon Dioxide 24 mmol/L (22-30); Chloride 110 mmol/L (98-107); Estimated Creatinine Clearance 56 ml/min; Glucose 97 mg/dl (70-99); Magnesium 1.8 mg/dl (1.6-2.3); Phosphorus 3.3 mg/dl (2.5-4.5); Potassium 3.5 mmol/L (3.5-5.1); Sodium 143 mmol/L (135-145); eGFR > 60.00
[2025-02-20] MEDS: OMNICEF 300 MG PO ×2 (10:47→19:39)
[2025-02-20] MEDS: STERILE WATER FOR INJECTION IV (10:58)
--- NOTE | 2025-02-20 11:03 | CON.NEURO ---
Consultation
Order
Date of Consultation: 02/20/25
Requesting Provider: Ami Smith MD
Reason for Consult: Episodic confusion and hallucinations per consult question polypharmacy
Neurology Consultation Note.
HPI: This is a 79-year-old woman who presented to [facility] on 02/18/2025 with encephalopathy and multiple falls. She has been treated for UTI with ceftriaxone and then cefdinir.
Ms. Greene reports no acute complaints. She states that she was diagnosed with Parkinson disease approximately in 2005. She is under care of CHRISTINE Leyva([facility])
Ina has had intermittent left greater than right hand tremor as well as stiffness and imbalance. She admits to have intermittent visual hallucinations over the last 7 months. These hallucinations occasionally cause distress but are non-command
and non-threatening in nature.
As per EMR on 02/20/2025 around 1:30 Ms. Ly was found 'sitting on side of bed insisting on going outside. She refused offer to assist to bedside commode, swatting staff hands to try to help her up. She then began screaming repeatedly and was
unable to redirect. Risperdal per order. Patient assisted back to bed'
According to PT note from 02/19/2025 patient was able to ambulate 3 feet with walker with assistance.
EKG: NSR, QTc Int : 486 ms
PDMP: Clonazepam 0.5 Mg 135 tabs filled in on 01/22/2025, 30 tabs filled in on 12/24/2024.
MAR: Risperidone 0.25 mg given on 02/20/25 at 02:03 am and Seroquel 25 mg given on 02/19/25 at 21:04 and 02/18/25 at 21:01.
PMH:IPD(CHRISTINE Leyva), HTN, KEVIN
PSH: DBS, Left hand surgery
SH: , retired hairdresser, independent in AIDLs(meds are managed by daughter),
FH:
All:NKDA
ROS: Constitutional: Negative. Negative for chills, fever and unexpected weight change.
HENT: Negative for ear pain, hearing loss, tinnitus and trouble swallowing.
Eyes: Negative. Negative for photophobia, pain and visual disturbance.
Respiratory: Negative for cough, choking and shortness of breath.
Cardiovascular: Negative for chest pain, palpitations and leg swelling.
Gastrointestinal: Negative for abdominal pain and vomiting.
Endocrine: Negative. Negative for cold intolerance.
Genitourinary: Negative for dysuria, flank pain and urgency.
Musculoskeletal: Negative for back pain, gait problem, neck pain and neck stiffness.
Skin: Negative for rash.
Allergic/Immunologic: Negative. Negative for immunocompromised state.
Neurological: Positive for intermittent hand tremor, stiffness
Psychiatric/Behavioral: Positive for chronic visual hallucinations
General: Well developed. In no acute distress.
Cardio: Regular rate and rhythm without murmur. Extremities are without cyanosis or edema.
Neuro:
Mental Status: Alert, oriented to person, place, and date. Impaired attention and preserved comprehension. Good fund of knowledge. Follows complex requests across the midline. Comprehension, naming, and repetition intact.
Cranial Nerves: Pupils are equally round and reactive to light. EOMs full. Visual rivera full to confrontation. No ptosis. No nystagmus. V1-V3 intact to light touch and pinprick bilaterally, symmetric. Face symmetric. Normal hearing AU. The
palate elevated well. SCMs and traps 5/5. Tongue midline. No dysarthria.
Motor: Normal motor tone with supplementation. No pronator or arm drift. Strength 5/5 throughout. No clonus.
Reflexes: 2+ throughout the upper extremities and knees. Plantar responses flexor bilaterally.
Sensory: Reported preserved vibration at the toes
Coordination: Bilateral action hand tremor.
Gait: deferred
Assessment and Plan:
I. Multifactorial encephalopathy (infectious, neurodegenerative) idiopathic Parkinson disease
II. Idiopathic Parkinson disease
III. RBD?
-Fall precautions
-Delirium precautions
-Avoid dopamine blockers
-No driving until neuropsychological and driving safety evaluation are completed
-Please check TFTs, b12
-Consider brain MRI without kevin if DBS is MRI conditional and ongoing ambulatory dysfunction.
-Continue home dose of carbidopa-levodopa, rasagiline, Gocovri, Seroquel and Clonazepam.
-Please obtain medical records from [facility]
-Will contact patient's family to obtain collateral history
-PT
I personally reviewed all radiology and labs along with past medical records pertinent to current medical problems. Total time spent in patient care is 64 minutes.
Thank you for allowing us to participate in the care of this patient. We will continue to follow. Please do not hesitate to contact us with any questions or concerns.
Subjective/Objective
Subjective Data
Date of Service: February 20, 2025
Objective Data
Vital Signs
Temp Pulse Resp BP Pulse Ox
36.4 C 69 18 144/78 97
02/20/25 07:45 02/20/25 07:45 02/20/25 07:45 02/20/25 07:45 02/20/25 07:45
Lab Results
02/20/25 07:34
02/20/25 07:34
Sodium 143 mmol/L (135-145) 02/20/25 07:34
Potassium 3.5 mmol/L (3.5-5.1) 02/20/25 07:34
BUN 13 mg/dl (7-17) 02/20/25 07:34
Glucose 97 mg/dl (70-99) 02/20/25 07:34
Calcium 8.9 mg/dl (8.4-10.2) 02/20/25 07:34
Phosphorus 3.3 mg/dl (2.5-4.5) 02/20/25 07:34
Patient Allergies
No Known Allergies Allergy (Verified 02/18/25 11:18)
Medications
-
Active Medications
Generic Name Dose Route Start Last Admin
Trade Name Freq PRN Reason Stop Dose Admin
Acetaminophen 650 mg 02/18/25 18:16
Acetaminophen 325 Mg Tablet PO 03/18/25 18:15
Q4HPRN PRN
mild pain/HERNANDEZ/temp> 100.4F
Amlodipine Besylate 5 mg 02/19/25 08:00 02/20/25 08:41
Amlodipine 5 Mg Tablet PO 03/19/25 07:59 5 mg
DAILY SHARI Administration
Carbidopa/Levodopa 2 tablet 02/18/25 22:00 02/20/25 08:41
Carbidopa (25 Mg)/Levodopa (100 Mg) Regular Release Tablet PO 03/18/25 21:59 2 tablet
TID SHARI Administration
Cefdinir 300 mg 02/20/25 10:45 02/20/25 10:47
Cefdinir 300 Mg Capsule PO 300 mg
Q12 SHARI Administration
Clonazepam 1.5 mg 02/18/25 22:00 02/19/25 21:03
Clonazepam 0.5 Mg Tablet PO 03/18/25 21:59 1.5 mg
HS SHARI Administration
Enoxaparin Sodium 40 mg 02/18/25 18:16 02/19/25 17:29
Enoxaparin Sodium 40 Mg/0.4 Ml Syringe SC 03/18/25 18:15 40 mg
QPM SHARI Administration
Levetiracetam 500 mg 02/18/25 20:00 02/20/25 08:41
Levetiracetam 500 Mg Regular Release Tablet PO 03/18/25 19:59 500 mg
BID SHARI Administration
Melatonin 5 mg 02/18/25 22:00 02/20/25 02:04
Melatonin 5 Mg Tablet PO 03/18/25 21:59 5 mg
HSPRN PRN Administration
sleep
Pt's Own (Amantadine 274 mg 02/18/25 22:00
Hcl [Gocovri] 137 PO 03/18/25 21:59
Mg Capsule,Extended HS SHARI
Release 24hr)
Pt's Own (Carbidopa 25 mg 02/19/25 08:00
25 Mg Tablet) PO 03/19/25 07:59
DAILY SHARI
Polyethylene Glycol 17 grams 02/18/25 18:16
Polyethylene Glycol Powder 17 Grams Packet PO 03/18/25 18:15
DAILYPRN PRN
constipation
Quetiapine Fumarate 25 mg 02/18/25 22:00 02/19/25 21:04
Quetiapine 25 Mg Tablet PO 03/18/25 21:59 25 mg
HS SHARI Administration
Rasagiline 1 mg 02/19/25 08:00 02/20/25 08:41
Rasagiline (Azilect) 0.5 Mg Tablet (Non-Form) PO 03/19/25 07:59 1 mg
DAILY SHARI Administration
Sodium Chloride 0 flush 02/18/25 19:00 02/19/25 21:06
Sodium Chloride 0.9% (Flush) Syringe IV 03/18/25 18:59 1 flush
PER PROTOCOL SHARI Administration
Sterile Water 10 ml 02/19/25 14:00 02/20/25 10:58
Sterile Water For Injection 10 Ml Vial IV 03/19/25 13:59 Not Given
Q24H SHARI
Home Medications
�Medication �Instructions �Recorded
amantadine HCl 137 mg 274 mg PO HS 02/18/25
capsule,extended release 24 hr
(Gocovri)
amlodipine 5 mg tablet (Norvasc) 5 mg PO DAILY Blood Pressure 02/18/25
carbidopa 25 mg tablet 25 mg PO DAILY PARKINSON 02/18/25
carbidopa 25 mg-levodopa 100 mg 2 tab PO TID 02/18/25
tablet
ciprofloxacin HCl 250 mg tablet 250 mg PO BID Infection 02/18/25
clonazepam 0.5 mg tablet 1.5 mg PO HS Mental Health/Anxiety 02/18/25
levetiracetam 500 mg tablet 500 mg PO BID Seizures 02/18/25
(Keppra)
melatonin 5 mg tablet 5 mg PO HSPRN PRN sleep 02/18/25
quetiapine 25 mg tablet (Seroquel) 25 mg PO HS Mental Health/Anxiety 02/18/25
rasagiline 1 mg tablet 1 mg PO DAILY PARKINSON 02/18/25
Vital Signs and Labs
-
Vital Signs and Labs:
Vital Signs
Temp Pulse Resp BP Pulse Ox
36.4 C 69 18 144/78 97
02/20/25 07:45 02/20/25 07:45 02/20/25 07:45 02/20/25 07:45 02/20/25 07:45
Lab Results
02/20/25 07:34
02/20/25 07:34
Sodium 143 mmol/L (135-145) 02/20/25 07:34
Potassium 3.5 mmol/L (3.5-5.1) 02/20/25 07:34
BUN 13 mg/dl (7-17) 02/20/25 07:34
Glucose 97 mg/dl (70-99) 02/20/25 07:34
Calcium 8.9 mg/dl (8.4-10.2) 02/20/25 07:34
Phosphorus 3.3 mg/dl (2.5-4.5) 02/20/25 07:34
Medications
-
Medications:
Generic Name Dose Route Start Last Admin
Trade Name Freq PRN Reason Stop Dose Admin
Acetaminophen 650 mg 02/18/25 18:16
Acetaminophen 325 Mg Tablet PO 03/18/25 18:15
Q4HPRN PRN
mild pain/HERNANDEZ/temp> 100.4F
Amlodipine Besylate 5 mg 02/19/25 08:00 02/20/25 08:41
Amlodipine 5 Mg Tablet PO 03/19/25 07:59 5 mg
DAILY SHARI Administration
Carbidopa/Levodopa 2 tablet 02/18/25 22:00 04/01/25 08:41
Carbidopa (25 Mg)/Levodopa (100 Mg) Regular Release Tablet PO 03/18/25 21:59 2 tablet
TID SHARI Administration
Cefdinir 300 mg 02/20/25 10:45 02/20/25 10:47
Cefdinir 300 Mg Capsule PO 300 mg
Q12 SHARI Administration
Clonazepam 1.5 mg 02/18/25 22:00 02/19/25 21:03
Clonazepam 0.5 Mg Tablet PO 03/18/25 21:59 1.5 mg
HS SHARI Administration
Enoxaparin Sodium 40 mg 02/18/25 18:16 02/19/25 17:29
Enoxaparin Sodium 40 Mg/0.4 Ml Syringe SC 03/18/25 18:15 40 mg
QPM SHARI Administration
Levetiracetam 500 mg 02/18/25 20:00 02/20/25 08:41
Levetiracetam 500 Mg Regular Release Tablet PO 03/18/25 19:59 500 mg
BID SHARI Administration
Melatonin 5 mg 02/18/25 22:00 02/20/25 02:04
Melatonin 5 Mg Tablet PO 03/18/25 21:59 5 mg
HSPRN PRN Administration
sleep
Pt's Own (Amantadine 274 mg 02/18/25 22:00
Hcl [Gocovri] 137 PO 03/18/25 21:59
Mg Capsule,Extended HS SHARI
Release 24hr)
Pt's Own (Carbidopa 25 mg 02/19/25 08:00
25 Mg Tablet) PO 03/19/25 07:59
DAILY SHARI
Polyethylene Glycol 17 grams 02/18/25 18:16
Polyethylene Glycol Powder 17 Grams Packet PO 03/18/25 18:15
DAILYPRN PRN
constipation
Quetiapine Fumarate 25 mg 02/18/25 22:00 02/19/25 21:04
Quetiapine 25 Mg Tablet PO 03/18/25 21:59 25 mg
HS SHARI Administration
Rasagiline 1 mg 02/19/25 08:00 02/20/25 08:41
Rasagiline (Azilect) 0.5 Mg Tablet (Non-Form) PO 03/19/25 07:59 1 mg
DAILY SHARI Administration
Sodium Chloride 0 flush 02/18/25 19:00 02/19/25 21:06
Sodium Chloride 0.9% (Flush) Syringe IV 03/18/25 18:59 1 flush
PER PROTOCOL SHARI Administration
Sterile Water 10 ml 02/19/25 14:00 02/20/25 10:58
Sterile Water For Injection 10 Ml Vial IV 03/19/25 13:59 Not Given
Q24H SHARI
Home Medications
-
Home Medications
amantadine HCl 137 mg capsule,extended release 24 hr (Gocovri) 274 mg PO HS 02/18/25
amlodipine 5 mg tablet (Norvasc) 5 mg PO DAILY Blood Pressure 02/18/25
carbidopa 25 mg tablet 25 mg PO DAILY PARKINSON 02/18/25
carbidopa 25 mg-levodopa 100 mg tablet 2 tab PO TID 02/18/25
ciprofloxacin HCl 250 mg tablet 250 mg PO BID Infection 02/18/25
clonazepam 0.5 mg tablet 1.5 mg PO HS Mental Health/Anxiety 02/18/25
levetiracetam 500 mg tablet (Keppra) 500 mg PO BID Seizures 02/18/25
melatonin 5 mg tablet 5 mg PO HSPRN PRN sleep 02/18/25
quetiapine 25 mg tablet (Seroquel) 25 mg PO HS Mental Health/Anxiety 02/18/25
rasagiline 1 mg tablet 1 mg PO DAILY PARKINSON 02/18/25
--- NOTE | 2025-02-20 14:20 | VNURNOTE ---
[employer] spoke to dgt Cathy via phone to discuss [facility] nurse/therapy, visits, schedule and homebound status.Dgt reports that SNF was recommended and that would be their choice as well. CM notified.
[facility] referral completed in Care Port as back up.
--- NOTE | 2025-02-20 14:24 | CS.PSYCHR ---
Consult Summary - Psychiatry
-
Pt is a 79 yo female with a PMH of Parkinson's disease, hypertension, and anxiety, who presents with a 3-day history of weakness and confusion. Family reports that patient has been having behavioral disturbance, trying to by [place] [employer] this
week, talking to people that are not there. She has been weak, and has had multiple falls. She was seen by her PCP 2 days ago. 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 Daughter states that today, her
mentation is better. Psychiatry asked to evaluate. Pt seen resting in bed, alert, oriented, calm, cooperative. Mental status appears clear. Pt able to acknowledge she was confused with hallucinations prior to admission. Pt reports this has
happened a couple times previously. Pt reports her Neurologist added medication to calm her recently, not sure of the name. Pt shows not signs of psychosis or med side effects today.
Psych Hx: denies, other than above symptoms. Prescribed Klonopin 0.5 mg 1 1/2 tabs per day (per PDMP), amantadine, carbidopa-levodopa, Keppra, Seroquel 25 mg HS- by Neurologist per pt
SH: lives independently on her dtr's property with her
MSE: alert, oriented, calm, cooperative. Speech coherent, thought clear/logical, able to converse fluently and give history. Mood/affect stable/appropriate. No agitation this morning. No signs of psychosis. Insight fair to good
Imp: TME, multifactorial (including recent dx UTI), improving/clearing. Parkinson's dz
Rec: Continue management per Neurology; would continue current psychotropic medication regimen- PDMP clearly shows prescribed Klonopin dose is 0.75 mg with no recent change
Will follow peripherally
[2025-02-20 14:25] LABS: Free T4 1.48 ng/dl (0.78-2.19)
[2025-02-20 14:58] LABS: Vitamin B12 260 pg/ml (239-931)
[2025-02-20 15:58] VITALS: BP 122/78
[2025-02-20] MEDS: LOVENOX 40 MG SC (17:49)
[2025-02-20] MEDS: SEROQUEL 25 MG PO (21:52)
[2025-02-20] MEDS: KLONOPIN 0.75 MG PO (21:53)
[2025-02-20 23:34] VITALS: BP 150/82
--- NOTE | 2025-02-21 06:20 | W.PN.HOSP.TC ---
Today's Communication/Plan
-
medically stable for discharge SNF rehab pending placement
Assessment / Plan
Assessment / Plan
Physical Exam
General: No Apparent Distress appears comfortable at this time
HEENT: NormoCephalic, Anicteric and Moist mucous membranes
Respiratory: Clear
Cardiac: S1/S2 and Regular Rhythm
GI: Soft, Non Tender, Non Distended and Normal Bowel Sounds
Musculoskeletal: No Clubbing, No Cyanosis and No Edema
Skin: Warm and Dry
Neuro: AOx3 conversant coherent
Psych: Calm
HPI: 79-year-old female with a past medical history of Parkinson's disease, hypertension, and anxiety, who presents with a 3-day history of weakness and confusion. Family reports that patient has been having behavioral confusion, trying to by
[employer] this week. Family states patient is talking to people that are not there. She has been weak, and has had multiple falls. She was seen by her PCP 2 days ago. Her UA was suggestive of a UTI, and she was treated with ciprofloxacin,
which she has taken for 2 days. Daughter states that today, her mentation is better. However, patient continues to be weak. She denies chest pain, shortness of breath, or palpitations. No headache, no fever, no vomiting. No dysuria. No
abdominal pain. No black or bloody stools. Patient is independent with walking at baseline.
#Acute urinary tract infection
Urine analysis shows possible UTI, but it is contaminated
Urine cx noted no growth though possibly false neg given patient on abx prior to admission
ceftriaxone switched to cefdinir, given persistent recurrent UTI may consider ppx hipprex following completion current abx regimen
daughter reports patient has appt with outpt Urology in April
#Possible Acute toxic metabolic encephalopathy
#required once dose risperdal overnight 02/19-02/20 d/t episode agitation confusion
#suspect sundowning, delirium, advancing Parkinson Dementia
#question possible polypharmacy contributing to confusion
Head CT negative for acute intracranial abnormality
Neuro psych eval appreciated
#B12 deficiency
supplementation started, cont
#Mild low TSH, T4 wnl
repeat thyroid function test in 1 month recommended
#Weakness
#Mechanical falls
Patient lives at home with , and is independent at baseline
Consult PT/OT appreciated SNF rehab
#Parkinson's disease
Continue home Sinemet amantadine rasagiline
#Essential hypertension
Continue amlodipine 5 mg daily
#Anxiety
bedtime klonopin reduced from 1.5 to 0.75 as per Psych, patient tolerated well
Stage 1 coccyx pressure injury, POA
cont local wound care
Moderate protein calorie malnutrition
DVT prophylaxis�subcu Lovenox
DNR
Medically stable for discharge SNF rehab pending placement
discussed with patient and patient's daughter Cathy
Total time spent to see the patient on the floor, examine the patient, review data and lab results, discuss treatment plan with patient, nursing staff around 40 minutes.
Anticipated Discharge: Within 24 hours
Subjective/Interval History
-
Date of Service: February 21, 2025
No acute distress. AOx3 conversant coherent. No significant events overnight noted. Patient reports overall feeling well. Denies new acute issues at this time.
Objective Data
-
Vital Signs:
Vital Signs
Temp Pulse Resp BP Pulse Ox
97.6 F 78 16 150/82 97
02/20/25 23:34 02/20/25 23:34 02/20/25 23:34 02/20/25 23:34 02/20/25 23:34
I&O
02/19/25 02/20/25 02/21/25
06:59 06:59 06:59
Intake Total 240 / 240 240 / 240 480 / 480
Balance 240 / 240 240 / 240 480 / 480
[2025-02-21 07:15] VITALS: BP 137/71
[2025-02-21] MEDS: RASAGILINE MESYLATE 1 MG PO (08:19)
[2025-02-21] MEDS: VITAMIN B-12 1000 MCG PO (08:19)
[2025-02-21] MEDS: OMNICEF 300 MG PO ×2 (08:19→20:59)
[2025-02-21] MEDS: NORVASC 5 MG PO (08:19)
[2025-02-21] MEDS: KEPPRA 500 MG PO ×2 (08:19→20:59)
[2025-02-21] MEDS: SINEMET 25-100 2 TABLET PO ×3 (08:19→22:03)
[2025-02-21] MEDS: MIRALAX 17 GRAMS PO (08:29)
--- NOTE | 2025-02-21 10:15 | CM ---
Spoke with dgt Cathy [phone]. Reviewed PT OT . Cathy agrees with pt going to SNF at [facility].
Cathy said she will convince pt to go to SNF.
IMM reviewed with Cathy emailed IMM to [email or web address]
Referral placed for [facility] [place] in care port as per dgt.
Pt in confused and assist of 2 Dgt requested ambulance transport.
Psychiatry and Neuro consulted.
PLAN To SNF after accepted
--- NOTE | 2025-02-21 10:51 | W.PN.NEURO.1 ---
Today's Communication / Plan
-
.
Subjective/Objective
Subjective Data
Date of Service: February 21, 2025
Neurology follow-up note.
Ms. Greene reports no complaints.
No reports of agitation overnight. No antipsychotic rescue medications in MAR except for home Seroquel.
Vitamin B12�260
TSH 0.04
PMH:IPD(CHRISTINE Leyva), HTN, KEVIN
PSH: DBS, Left hand surgery
SH: , retired hairdresser, independent in AIDLs (meds are managed by daughter),
All:NKDA
ROS: Constitutional: Negative. Negative for chills, fever and unexpected weight change.
HENT: Negative for ear pain, hearing loss, tinnitus and trouble swallowing.
Eyes: Negative. Negative for photophobia, pain and visual disturbance.
Respiratory: Negative for cough, choking and shortness of breath.
Cardiovascular: Negative for chest pain, palpitations and leg swelling.
Gastrointestinal: Negative for abdominal pain and vomiting.
Endocrine: Negative. Negative for cold intolerance.
Genitourinary: Negative for dysuria, flank pain and urgency.
Musculoskeletal: Negative for back pain, gait problem, neck pain and neck stiffness.
Skin: Negative for rash.
Allergic/Immunologic: Negative. Negative for immunocompromised state.
Neurological: Positive for intermittent hand tremor, stiffness
Psychiatric/Behavioral: Positive for chronic visual hallucinations
General: Well developed. In no acute distress.
Cardio: Regular rate and rhythm without murmur. Extremities are without cyanosis or edema.
Neuro:
Mental Status: Alert, oriented to person, place, and date. Impaired attention and preserved comprehension. Good fund of knowledge. Follows complex requests across the midline. Comprehension, naming, and repetition intact.
Cranial Nerves: Pupils are equally round and reactive to light. EOMs full. Visual rivera full to confrontation. No ptosis. No nystagmus. V1-V3 intact to light touch and pinprick bilaterally, symmetric. Face symmetric. Normal hearing AU. The
palate elevated well. SCMs and traps 5/5. Tongue midline. No dysarthria.
Motor: Normal motor tone with supplementation. No pronator or arm drift. Strength 5/5 throughout. No clonus.
Reflexes: 2+ throughout the upper extremities and knees. Plantar responses flexor bilaterally.
Sensory: Reported preserved vibration at the toes
Coordination: Bilateral action hand tremor.
Gait: deferred
Assessment and Plan:
I. Mild multifactorial encephalopathy (infectious, neurodegenerative). Stable
II. Idiopathic Parkinson disease
III. Vitamin B12 insufficiency
-Fall precautions
-Delirium precautions
-Avoid dopamine blockers
-No driving until neuropsychological and driving safety evaluation are completed
-Start oral cyanocobalamin 1000 mcg once a day
-Consider brain MRI without kevin if DBS is MRI conditional and ongoing ambulatory dysfunction.
-Continue home dose of carbidopa-levodopa, rasagiline, Gocovri, Seroquel and Clonazepam.
-Please obtain medical records from [facility]
-Outpatient neurology follow-up with CHRISTINE Leyva.
-Please recall neurology services any questions or concerns
I personally reviewed all radiology and labs along with past medical records pertinent to current medical problems. Total time spent in patient care is 34 minutes.
Thank you for allowing us to participate in the care of this patient. Please do not hesitate to contact us with any questions or concerns.
Objective Data
Vital Signs
Temp Pulse Resp BP Pulse Ox
36.4 C 68 18 137/71 96
02/21/25 07:15 02/21/25 07:15 02/21/25 07:15 02/21/25 08:19 02/21/25 07:15
Lab Results
02/20/25 07:34
02/20/25 07:34
Sodium 143 mmol/L (135-145) 02/20/25 07:34
Potassium 3.5 mmol/L (3.5-5.1) 02/20/25 07:34
BUN 13 mg/dl (7-17) 02/20/25 07:34
Glucose 97 mg/dl (70-99) 02/20/25 07:34
Calcium 8.9 mg/dl (8.4-10.2) 02/20/25 07:34
Phosphorus 3.3 mg/dl (2.5-4.5) 02/20/25 07:34
Vitamin B12 260 pg/ml (196-439) 02/20/25 07:34
Patient Allergies
No Known Allergies Allergy (Verified 02/18/25 11:18)
Vital Signs and Labs
-
Vital Signs and Labs:
Vital Signs
Temp Pulse Resp BP Pulse Ox
36.4 C 68 18 137/71 96
02/21/25 07:15 02/21/25 07:15 02/21/25 07:15 02/21/25 08:19 02/21/25 07:15
Lab Results
02/20/25 07:34
02/20/25 07:34
Sodium 143 mmol/L (135-145) 02/20/25 07:34
Potassium 3.5 mmol/L (3.5-5.1) 02/20/25 07:34
BUN 13 mg/dl (7-17) 02/20/25 07:34
Glucose 97 mg/dl (70-99) 02/20/25 07:34
Calcium 8.9 mg/dl (8.4-10.2) 02/20/25 07:34
Phosphorus 3.3 mg/dl (2.5-4.5) 02/20/25 07:34
Vitamin B12 260 pg/ml (673-551) 02/20/25 07:34
Medications
-
Medications:
Generic Name Dose Route Start Last Admin
Trade Name Freq PRN Reason Stop Dose Admin
Acetaminophen 650 mg 02/18/25 18:16
Acetaminophen 325 Mg Tablet PO 03/18/25 18:15
Q4HPRN PRN
mild pain/HERNANDEZ/temp> 100.4F
Amlodipine Besylate 5 mg 02/19/25 08:00 02/21/25 08:19
Amlodipine 5 Mg Tablet PO 03/19/25 07:59 5 mg
DAILY SHARI Administration
Carbidopa/Levodopa 2 tablet 02/18/25 22:00 02/21/25 08:19
Carbidopa (25 Mg)/Levodopa (100 Mg) Regular Release Tablet PO 03/18/25 21:59 2 tablet
TID SHARI Administration
Cefdinir 300 mg 02/20/25 10:45 02/21/25 08:19
Cefdinir 300 Mg Capsule PO 300 mg
Q12 SHARI Administration
Clonazepam 0.75 mg 02/20/25 22:00 02/20/25 21:53
Clonazepam 0.25 Mg Dose PO 03/20/25 21:59 0.75 mg
HS SHARI Administration
Cyanocobalamin 1,000 mcg 02/21/25 08:00 02/21/25 08:19
Cyanocobalamin 1,000 Mcg Tablet PO 03/21/25 07:59 1,000 mcg
DAILY SHARI Administration
Enoxaparin Sodium 40 mg 02/18/25 18:16 02/20/25 17:49
Enoxaparin Sodium 40 Mg/0.4 Ml Syringe SC 03/18/25 18:15 40 mg
QPM SHARI Administration
Levetiracetam 500 mg 02/18/25 20:00 02/21/25 08:19
Levetiracetam 500 Mg Regular Release Tablet PO 03/18/25 19:59 500 mg
BID SHARI Administration
Melatonin 5 mg 02/18/25 22:00 02/20/25 22:53
Melatonin 5 Mg Tablet PO 03/18/25 21:59 5 mg
HSPRN PRN Administration
sleep
Pt's Own (Amantadine 274 mg 02/18/25 22:00
Hcl [Gocovri] 137 PO 03/18/25 21:59
Mg Capsule,Extended HS SHARI
Release 24hr)
Pt's Own (Carbidopa 25 mg 02/19/25 08:00
25 Mg Tablet) PO 03/19/25 07:59
DAILY SHARI
Polyethylene Glycol 17 grams 02/18/25 18:16 02/21/25 08:29
Polyethylene Glycol Powder 17 Grams Packet PO 03/18/25 18:15 17 grams
DAILYPRN PRN Administration
constipation
Quetiapine Fumarate 25 mg 02/18/25 22:00 02/20/25 21:52
Quetiapine 25 Mg Tablet PO 03/18/25 21:59 25 mg
HS SHARI Administration
Rasagiline 1 mg 02/19/25 08:00 02/21/25 08:19
Rasagiline (Azilect) 0.5 Mg Tablet (Non-Form) PO 03/19/25 07:59 1 mg
DAILY SHARI Administration
Sodium Chloride 0 flush 02/18/25 19:00 02/19/25 21:06
Sodium Chloride 0.9% (Flush) Syringe IV 03/18/25 18:59 1 flush
PER PROTOCOL SHARI Administration
Sterile Water 10 ml 02/19/25 14:00 02/20/25 10:58
Sterile Water For Injection 10 Ml Vial IV 03/19/25 13:59 Not Given
Q24H SHARI
Home Medications
-
Home Medications
amantadine HCl 137 mg capsule,extended release 24 hr (Gocovri) 274 mg PO HS 02/18/25
amlodipine 5 mg tablet (Norvasc) 5 mg PO DAILY Blood Pressure 02/18/25
carbidopa 25 mg tablet 25 mg PO DAILY PARKINSON 02/18/25
carbidopa 25 mg-levodopa 100 mg tablet 2 tab PO TID 02/18/25
ciprofloxacin HCl 250 mg tablet 250 mg PO BID Infection 02/18/25
clonazepam 0.5 mg tablet 1.5 mg PO HS Mental Health/Anxiety 02/18/25
levetiracetam 500 mg tablet (Keppra) 500 mg PO BID Seizures 02/18/25
melatonin 5 mg tablet 5 mg PO HSPRN PRN sleep 02/18/25
quetiapine 25 mg tablet (Seroquel) 25 mg PO HS Mental Health/Anxiety 02/18/25
rasagiline 1 mg tablet 1 mg PO DAILY PARKINSON 02/18/25
--- NOTE | 2025-02-21 12:12 | W.PN.UPDATE ---
Update Note
Progress Note Update
patient seen chart reviewed. discussed with nursing. patient was very pleasant and able to engaged in appropriate converstation. . she was sitting up in a chair eating her lunch. she is feeling back to normal at this point. she told me about her
living situation with her h on d's property. she has one d and two granddaughters and proudly told me she is a great gm. told me about her gd 's move to [place] bc got a job which gave him 'an 85 thousand dollar raise...so they had to
move'. she is hoping for dc to snf soon. says dinesh feels sh needs to get stronger physically. psychiatrically she is only taking 25 mg seroquel at . not clear when this was started but it looks like it was started on february 17 ? at the time she
appeared to be getting confused. one might consider whether it is needed at this point...on the other hand it could be the reason she is looking better. would suggest if there is a move to dc it just go down to 12.5 mg for a week and if no change
and she remains as she is today then consider dc. psych will sign off.
[2025-02-21] MEDS: STERILE WATER FOR INJECTION IV (14:58)
[2025-02-21 15:20] VITALS: BP 135/70
[2025-02-21] MEDS: LOVENOX 40 MG SC (16:56)
[2025-02-21] MEDS: SEROQUEL 25 MG PO (22:03)
[2025-02-21] MEDS: KLONOPIN 0.75 MG PO (22:03)
[2025-02-21] MEDS: MELATONIN 5 MG PO (22:53)
[2025-02-21 23:22] VITALS: BP 123/72
--- NOTE | 2025-02-22 06:08 | W.PN.HOSP.TC ---
Today's Communication/Plan
-
Medically stable for discharge SNF rehab pending placement
Assessment / Plan
Assessment / Plan
Physical Exam
General: No Apparent Distress appears comfortable at this time
HEENT: NormoCephalic, Anicteric and Moist mucous membranes
Respiratory: Clear
Cardiac: S1/S2 and Regular Rhythm
GI: Soft, Non Tender, Non Distended and Normal Bowel Sounds
Musculoskeletal: No Clubbing, No Cyanosis and No Edema
Skin: Warm and Dry
Neuro: AOx3 conversant coherent
Psych: Calm
HPI: 79-year-old female with a past medical history of Parkinson's disease, hypertension, and anxiety, who presents with a 3-day history of weakness and confusion. Family reports that patient has been having behavioral confusion, trying to by
Lakesha gifts this week. Family states patient is talking to people that are not there. She has been weak, and has had multiple falls. She was seen by her PCP 2 days ago. Her UA was suggestive of a UTI, and she was treated with ciprofloxacin,
which she has taken for 2 days. Daughter states that today, her mentation is better. However, patient continues to be weak. She denies chest pain, shortness of breath, or palpitations. No headache, no fever, no vomiting. No dysuria. No
abdominal pain. No black or bloody stools. Patient is independent with walking at baseline.
#Acute urinary tract infection
Urine analysis shows possible UTI, but it is contaminated
Urine cx noted no growth though possibly false neg given patient on abx prior to admission
ceftriaxone switched to cefdinir, given persistent recurrent UTI may consider ppx hipprex following completion current abx regimen
daughter reports patient has appt with outpt Urology in April
#Possible Acute toxic metabolic encephalopathy
#required once dose risperdal overnight 02/19-02/20 d/t episode agitation confusion
#suspect sundowning, delirium, advancing Parkinson Dementia
#question possible polypharmacy contributing to confusion
Head CT negative for acute intracranial abnormality
Neuro psych eval appreciated
#B12 deficiency
supplementation started, cont
#Mild low TSH, T4 wnl
repeat thyroid function test in 1 month recommended
#Weakness
#Mechanical falls
Patient lives at home with , and is independent at baseline
Consult PT/OT appreciated SNF rehab
#Parkinson's disease
Continue home Sinemet amantadine rasagiline
#Essential hypertension
Continue amlodipine 5 mg daily
#Anxiety
bedtime klonopin reduced from 1.5 to 0.75 as per Psych, patient tolerated well
#Constipation
cont bowel regimen
Stage 1 coccyx pressure injury, POA
cont local wound care
Moderate protein calorie malnutrition
DVT prophylaxis�subcu Lovenox
DNR
Medically stable for discharge SNF rehab pending placement
discussed with patient and patient's daughter Cathy
Total time spent to see the patient on the floor, examine the patient, review data and lab results, discuss treatment plan with patient, nursing staff around 35 minutes.
Anticipated Discharge: Within 24 hours
Subjective/Interval History
-
Date of Service: February 22, 2025
no acute distress. appears comfortable
Objective Data
-
Vital Signs:
Vital Signs
Temp Pulse Resp BP Pulse Ox
97.8 F 76 16 123/72 96
02/21/25 23:22 02/21/25 23:22 02/21/25 23:22 02/21/25 23:22 02/21/25 23:22
I&O
02/20/25 02/21/25 02/22/25
06:59 06:59 06:59
Intake Total 240 / 240 480 / 480 900 / 900
Balance 240 / 240 480 / 480 900 / 900
[2025-02-22 07:20] VITALS: BP 144/75
[2025-02-22] MEDS: NORVASC 5 MG PO (09:09)
[2025-02-22] MEDS: VITAMIN B-12 1000 MCG PO (09:09)
[2025-02-22] MEDS: RASAGILINE MESYLATE 1 MG PO (09:09)
[2025-02-22] MEDS: SINEMET 25-100 2 TABLET PO ×3 (09:09→21:42)
[2025-02-22] MEDS: OMNICEF 300 MG PO ×2 (09:10→20:19)
[2025-02-22] MEDS: KEPPRA 500 MG PO ×2 (09:10→20:19)
[2025-02-22] MEDS: MIRALAX 17 GRAMS PO (09:23)
[2025-02-22 15:48] VITALS: BP 122/71
[2025-02-22] MEDS: STERILE WATER FOR INJECTION IV (15:52)
[2025-02-22] MEDS: LOVENOX 40 MG SC (16:53)
--- NOTE | 2025-02-22 17:06 | CM ---
Spoke with Suresh Castro no beds this week.
Spoke with Samantha [facility] no beds today or tomorrow.
Spoke with Nita Mckeon she will call back in am . She said a bed should be available tomorrow.
PLAN To [facility] tomorrow pending bed.
[2025-02-22 17:35] VITALS: BP 158/81; PULSE 82; O2SAT 97
[2025-02-22] MEDS: SENOKOT-S 1 TABLET PO (20:19)
[2025-02-22] MEDS: KLONOPIN 0.75 MG PO (21:42)
[2025-02-22] MEDS: SEROQUEL 25 MG PO (21:42)
[2025-02-22 23:34] VITALS: BP 131/68
--- NOTE | 2025-02-23 07:04 | W.PN.HOSP.TC ---
Today's Communication/Plan
-
Medically stable for discharge SNF rehab pending bed availability
Assessment / Plan
Assessment / Plan
Physical Exam
General: No Apparent Distress appears comfortable at this time
HEENT: NormoCephalic, Anicteric and Moist mucous membranes
Respiratory: Clear
Cardiac: S1/S2 and Regular Rhythm
GI: Soft, Non Tender, Non Distended and Normal Bowel Sounds
Musculoskeletal: No Clubbing, No Cyanosis and No Edema
Skin: Warm and Dry
Neuro: AOx3 conversant coherent
Psych: Calm
HPI: 79-year-old female with a past medical history of Parkinson's disease, hypertension, and anxiety, who presents with a 3-day history of weakness and confusion. Family reports that patient has been having behavioral confusion, trying to by
Lakesha gifts this week. Family states patient is talking to people that are not there. She has been weak, and has had multiple falls. She was seen by her PCP 2 days ago. Her UA was suggestive of a UTI, and she was treated with ciprofloxacin,
which she has taken for 2 days. Daughter states that today, her mentation is better. However, patient continues to be weak. She denies chest pain, shortness of breath, or palpitations. No headache, no fever, no vomiting. No dysuria. No
abdominal pain. No black or bloody stools. Patient is independent with walking at baseline.
#Acute urinary tract infection
#hx Recurrent UTI per daughter
Urine analysis shows possible UTI, but it is contaminated
Urine cx noted no growth though possibly false neg given patient on abx prior to admission
ceftriaxone switched to cefdinir 02/23 completes total 5 days abx, hipprex to start 02/24 UTI ppx
daughter reports patient has appt with outpt Urology in April
#Possible Acute toxic metabolic encephalopathy
#required once dose risperdal overnight 02/19-02/20 d/t episode agitation confusion
#suspect sundowning, delirium, advancing Parkinson Dementia
#question possible polypharmacy contributing to confusion
Head CT negative for acute intracranial abnormality
Neuro psych eval appreciated
#B12 deficiency
supplementation started, cont
#Mild low TSH, T4 wnl
repeat thyroid function test in 1 month recommended
#Weakness
#Mechanical falls
Patient lives at home with , and is independent at baseline
Consult PT/OT appreciated SNF rehab
#Parkinson's disease
Continue home Sinemet amantadine rasagiline
#Essential hypertension
Continue amlodipine 5 mg daily
#Anxiety
bedtime klonopin reduced from 1.5 to 0.75 as per Psych, patient tolerated well
#Constipation
cont bowel regimen
Stage 1 coccyx pressure injury, POA
cont local wound care
Moderate protein calorie malnutrition
DVT prophylaxis�subcu Lovenox
DNR
Medically stable for discharge SNF rehab pending bed availability
discussed with patient and patient's daughter Cathy
Total time spent to see the patient on the floor, examine the patient, review data and lab results, discuss treatment plan with patient, nursing staff around 35 minutes.
Anticipated Discharge: Within 24 hours
Subjective/Interval History
-
Date of Service: February 23, 2025
no acute distress. comfortable.
Objective Data
-
Vital Signs:
Vital Signs
Temp Pulse Resp BP Pulse Ox
97.7 F 82 15 131/68 93
02/22/25 23:34 02/22/25 23:34 02/22/25 23:34 02/22/25 23:34 02/22/25 23:34
I&O
02/22/25 02/23/25 02/24/25
06:59 06:59 06:59
Intake Total 1140 / 1140 900 / 900
Balance 1140 / 1140 900 / 900
[2025-02-23 07:20] VITALS: BP 98/57
[2025-02-23] MEDS: MIRALAX 17 GRAMS PO (09:39)
[2025-02-23] MEDS: SENOKOT-S 1 TABLET PO ×2 (09:39→20:56)
[2025-02-23] MEDS: RASAGILINE MESYLATE 1 MG PO (09:39)
[2025-02-23] MEDS: OMNICEF 300 MG PO ×2 (09:39→20:56)
[2025-02-23] MEDS: NORVASC 5 MG PO (09:39)
[2025-02-23] MEDS: SINEMET 25-100 2 TABLET PO ×3 (09:43→22:11)
[2025-02-23] MEDS: VITAMIN B-12 1000 MCG PO (09:43)
[2025-02-23] MEDS: KEPPRA 500 MG PO ×2 (09:43→20:55)
[2025-02-23] MEDS: STERILE WATER FOR INJECTION IV (13:49)
[2025-02-23 15:50] VITALS: BP 132/74
--- NOTE | 2025-02-23 17:29 | CM ---
Spoke with Suresh Castro no beds this week.
Spoke with Samantha [facility] no beds today.
Spoke with Nita Mckeon she bed available tomorrow.
Offered dgt [phone] if she wanted another SNF choice entered . She declined .She wants [place] bed tomorrow.
IMM reviewed with Cathy She agrees with dc tomorrow to SNF.
[place].
Nita
reort [phone]
fax [phone]
PLAN To [facility] tomorrow
[2025-02-23] MEDS: LOVENOX 40 MG SC (18:06)
[2025-02-23] MEDS: KLONOPIN 0.75 MG PO (22:11)
[2025-02-23] MEDS: SEROQUEL 25 MG PO (22:11)
[2025-02-23 23:38] VITALS: BP 136/74
--- NOTE | 2025-02-24 06:25 | W.PN.HOSP.TC ---
Today's Communication/Plan
-
discharge
Assessment / Plan
Assessment / Plan
Physical Exam
General: No Apparent Distress appears comfortable at this time
HEENT: NormoCephalic, Anicteric and Moist mucous membranes
Respiratory: Clear
Cardiac: S1/S2 and Regular Rhythm
GI: Soft, Non Tender, Non Distended and Normal Bowel Sounds
Musculoskeletal: No Clubbing, No Cyanosis and No Edema
Skin: Warm and Dry
Neuro: AOx3 conversant coherent
Psych: Calm
HPI: 79-year-old female with a past medical history of Parkinson's disease, hypertension, and anxiety, who presents with a 3-day history of weakness and confusion. Family reports that patient has been having behavioral confusion, trying to by
Kenneth gifts this week. Family states patient is talking to people that are not there. She has been weak, and has had multiple falls. She was seen by her PCP 2 days ago. Her UA was suggestive of a UTI, and she was treated with ciprofloxacin,
which she has taken for 2 days. Daughter states that today, her mentation is better. However, patient continues to be weak. She denies chest pain, shortness of breath, or palpitations. No headache, no fever, no vomiting. No dysuria. No
abdominal pain. No black or bloody stools. Patient is independent with walking at baseline.
#Acute urinary tract infection
#hx Recurrent UTI per daughter
Urine analysis shows possible UTI, but it is contaminated
Urine cx noted no growth though possibly false neg given patient on abx prior to admission
ceftriaxone switched to cefdinir 02/23 completed total 5 days abx, hipprex started 02/24 for UTI ppx
daughter reports patient has appt with outpt Urology in April
#Possible Acute toxic metabolic encephalopathy
#required once dose risperdal overnight 02/19-02/20 d/t episode agitation confusion
#suspect sundowning, delirium, advancing Parkinson Dementia
#question possible polypharmacy contributing to confusion
Head CT negative for acute intracranial abnormality
Neuro psych eval appreciated
patient since improved, no further need for prn overnight
Daughter notes patient has appt with her Neurologist at [place] March 21
#B12 deficiency
supplementation started, cont
#Mild low TSH, T4 wnl
repeat thyroid function test in 1 month recommended
#Weakness
#Mechanical falls
Patient lives at home with , and is independent at baseline
Consult PT/OT appreciated SNF rehab
#Parkinson's disease
Continue home Sinemet amantadine rasagiline
#Essential hypertension
Continue amlodipine 5 mg daily
#Anxiety
bedtime klonopin reduced from 1.5 to 0.75 as per Psych, patient tolerating well
#Constipation
cont bowel regimen
Stage 1 coccyx pressure injury, POA
cont local wound care
Moderate protein calorie malnutrition
DVT prophylaxis�subcu Lovenox
DNR
Medically stable for discharge SNF rehab with outpatient follow up recommendations.
discussed with patient and patient's daughter Cathy
Total Time Preparing Discharge ___40____ minutes including examination of the patient, summary of the hospital stay, instructions for continuing care to all relevant caregivers; and preparation of discharge records, prescriptions, and referral
forms if necessary.
Anticipated Discharge: Today
Subjective/Interval History
-
Date of Service: February 24, 2025
no acute distress resting comfortably in bed. overall reports feeling well.
Objective Data
-
Vital Signs:
Vital Signs
Temp Pulse Resp BP Pulse Ox
98.2 F 83 16 136/74 96
02/23/25 23:38 02/23/25 23:38 02/23/25 23:38 02/23/25 23:38 02/23/25 23:38
I&O
02/22/25 02/23/25 02/24/25
06:59 06:59 06:59
Intake Total 1140 / 1140 900 / 900 1020 / 1020
Balance 1140 / 1140 900 / 900 1020 / 1020
[2025-02-24 07:35] VITALS: BP 145/77
[2025-02-24] MEDS: MIRALAX 17 GRAMS PO (07:47)
[2025-02-24] MEDS: SENOKOT-S 1 TABLET PO (07:47)
[2025-02-24] MEDS: NORVASC 5 MG PO (07:48)
[2025-02-24] MEDS: KEPPRA 500 MG PO (07:48)
[2025-02-24] MEDS: SINEMET 25-100 2 TABLET PO (07:48)
[2025-02-24] MEDS: VITAMIN B-12 1000 MCG PO (07:49)
[2025-02-24] MEDS: HIPREX 1 GRAM PO (07:49)
[2025-02-24] MEDS: RASAGILINE MESYLATE 1 MG PO (07:50)
--- NOTE | 2025-02-24 10:21 | W.DCSUMMARY ---
Discharge Summary
Discharge Data
Date of Admission: 02/18/25
Date of Discharge: 02/24/25
-
Pending Results: No
Discharge Plan
-
Patient Disposition: Long-Term/SNF
Discharge Diagnosis/Procedures: Acute urinary tract infection (UTI)
History recurrent UTI
Acute toxic metabolic encephalopathy
Possible Polypharmacy
B12 deficiency
Parkinson's disease
Hypertension
Anxiety/Insomnia
Abnormal Thyroid function test (mild low TSH but normal T4)
Condition: Fair
Diet: Regular
Activity: With assistance and With Walker
Driving Restrictions: No driving
Bathing Restrictions: None
Blood Work: Repeat CBC, BMP, and thyroid function test with primary care provider in 1 week of discharge.
Other Services: PT and OT
Activity Restrictions/Additional Instructions:
Please follow up with primary care provider in 1 week of discharge and keep your appointment with your Neurologist.
Vit B12 supplement prescribed for deficiency.
Klonopin for anxiety/sleep reduced to 0.75 mg at bedtime due to polypharmacy concerns.
Hiprex started for prophylaxis recurrent urinary tract infections.
Please take medications as prescribed/recommended and follow up with primary care provider and/or other healthcare provider involved in your care for refills and/or further adjustment to your medication regimen as necessary.
Referrals:
Rachael Adames DO [Family Provider] - in one week
Prescriptions:
New
clonazepam 0.5 mg Tablet
0.75 mg PO HS Qty: 5 0RF
cyanocobalamin (vitamin B-12) [Vitamin B-12] 1,000 mcg Tablet
1,000 mcg PO DAILY Qty: 30 0RF
methenamine hippurate 1 gram Tablet
1 g PO BID Qty: 60 0RF
Continued
quetiapine [Seroquel] 25 mg Tablet
25 mg PO HS
levetiracetam [Keppra] 500 mg Tablet
500 mg PO BID
amlodipine [Norvasc] 5 mg Tablet
5 mg PO DAILY
carbidopa 25 mg Tablet
25 mg PO DAILY
carbidopa-levodopa 25-100 mg Tablet
2 tab PO TID
melatonin 5 mg Tablet
5 mg PO HSPRN PRN (Reason: sleep)
Gocovri 137 mg Capsule,Extended Release 24hr
274 mg PO HS
rasagiline 1 mg Tablet
1 mg PO DAILY
Discontinued
clonazepam 0.5 mg Tablet
1.5 mg PO HS
ciprofloxacin HCl 250 mg Tablet
250 mg PO BID
Rx Instructions:
for 3 days
Discharge Orders:
Discharge Patient (As Directed); Ordered 02/24/25
Ordered By: Ami Smith
Discharge Date and Time
Print Language: AFGHAN
--- NOTE | 2025-02-24 13:06 | CM ---
Received notification that patient is medically stable for transfer to [facility]. Family stated that they can transport. IMM reviewed, signed and on chart.
# For report -[phone] fax# [phone]
Admissions updated about patient's imminent arrival.
Plan: Case management will continue to follow and assist with discharge planning. [facility].
--- NOTE | 2025-02-24 13:35 | PTCARENOTE ---
Report called to [facility] at [phone]. SNF requested pt not be discharged until 14:00. Family to transport. Family did not want to wait, took pt now and said they were going to grab lunch before taking pt to rehab.
== END 2025-02-24 14:14 | DRG 689 ==
LOC: 4 EAST ACU 16:13
PROVIDERS: Physician Assistant; ADMITTING PHYSICIAN Family Medicine; ATTENDING PHYSICIAN Internal Medicine; CONSULT PHYSICIAN Psychiatry & Neurology Neurology; CONSULT PHYSICIAN Psychiatry & Neurology Psychiatry; EMERGENCY PHYSICIAN Emergency Medicine; FAMILY PHYSICIAN Family Medicine
DX: N39.0 Urinary tract infection, site not specified (principal); G92.8 Other toxic encephalopathy; F02.84 Dementia in other diseases classified elsewhere, unspecified severity, with anxiety; E44.0 Moderate protein-calorie malnutrition; Z68.1 Body mass index [BMI] 19.9 or less, adult; Z66 Do not resuscitate; I10 Essential (primary) hypertension; G20.A1 Parkinson's disease without dyskinesia, without mention of fluctuations; F41.9 Anxiety disorder, unspecified; E53.8 Deficiency of other specified B group vitamins; R29.6 Repeated falls; K59.00 Constipation, unspecified; L89.151 Pressure ulcer of sacral region, stage 1; T50.915A Adverse effect of multiple unspecified drugs, medicaments and biological substances, initial encounter; G47.00 Insomnia, unspecified; Z96.82 Presence of neurostimulator; Z79.899 Other long term (current) drug therapy; Z11.52 Encounter for screening for COVID-19
CPT/HCPCS: 70450; 80048; 80053; 81003; 81015; 82607; 83735; 84100; 84439; 84443; 85025; 85027; 87086; 87502; 87811; 93005; 96361; 96374; 97116; 97163; 97167; 97530; 97535; 99285

== ENCOUNTER 2025-04-09 18:22 | Emergency (ER) | payer MEDICARE, BC, SELFPAY ==
[2025-04-09 18:26] VITALS: BP 139/75
[2025-04-09 19:11] LABS: % Basophils 0.4 % (0-2); % Eosinophils 3.3 % (0-6); % Immature Granulocytes 0.2 % (0-0.5); % Lymphocytes 17.9 % (20.5-51.1); % Monocytes 11.1 % (1.7-9.3); % Neutrophils 67.1 % (42.2-75.2); Absolute Eosinophils 0.2 10^3/uL (0-0.7); Absolute Lymphocytes 0.8 10^3/uL (1.2-3.4); Absolute Monocytes 0.5 10^3/uL (0.1-0.6); Hemoglobin 12.9 g/dL (12.0-16.0); Mean Corp Hgb Conc. 33.9 g/dL (33.0-37.0); Mean Corpuscular Hgb 30.3 pg (27.0-31.0); Mean Corpuscular Volume 89.2 fL (81.0-99.0); Mean Platelet Volume 9.2 fL (7.4-10.4); Nucleated Red Blood Cells % 0 %; Platelet Count 311 10^3/uL (130-400); Red Blood Cell Count 4.26 10^6/uL (4.20-5.40); Red Cell Dist. Width 13.2 % (11.5-14.5); White Blood Cell Count 4.5 10^3/uL (4.8-10.8)
[2025-04-09 19:27] LABS: ALT (SGPT) < 10 U/L (0-35); AST (SGOT) 8 U/L (14-36); Albumin 4.9 g/dl (3.5-5.0); Alkaline Phosphatase 92 U/L (38-126); Blood Urea Nitrogen 17 mg/dl (7-17); Calcium 9.4 mg/dl (8.4-10.2); Carbon Dioxide 20 mmol/L (22-30); Chloride 108 mmol/L (98-107); Glucose 109 mg/dl (70-99); Potassium 4.5 mmol/L (3.5-5.1); Sodium 138 mmol/L (135-145); Total Bilirubin 0.9 mg/dl (0.2-1.3); Total Protein 7.8 g/dl (6.3-8.2); eGFR 46.62
[2025-04-09 22:20] VITALS: BP 141/76
[2025-04-09 22:25] VITALS: BMI 20.3
[2025-04-09 23:00] VITALS: BP 130/72
[2025-04-09] MEDS: NSS 1000 IV (23:05)
--- NOTE | 2025-04-09 23:36 | ED.GENMED ---
History of Present Illness
General
Chief Complaint: Dehydration Symptoms
Source: patient
Exam Limitations: none
Time Seen by Provider: 04/09/25 22:36
Nursing documentation reviewed up to this point in time: agreed with
History of Present Illness
History of Present Illness:
79-year-old female with history of Parkinson's disease, hypertension who presents to the emergency room for evaluation of generalized weakness in the setting of recent UTI. She has had issues with recurrent UTIs recently; last week saw her primary
doctor for feeling 'off' and was diagnosed with a UTI in the office. She was prescribed an antibiotic which she took x 5 days with last dose yesterday. She says that she still feels generally weak which is her typical presentation with UTIs which
prompted her to come to the emergency room. She has not had any dysuria, change in urinary frequency, hematuria. Denies any abdominal or flank pain. She denies any fever or chills. She denies any nausea, vomiting, diarrhea, chest pain, cough,
shortness of breath or any other complaints. I did speak to her daughter on the phone but she also was unsure what antibiotic patient was just treated with.
Past History
Past History
ED Past Medical History: Other (Parkinson's); Negative Seizures
ED Past Surgical History: Brain (Deep brain)
Social History
Tobacco: Non-smoker
Alcohol: Occasional
Drug: None
Personal:
Living: with family
Employment: Retired
Review of Systems
Review of Systems
All Other Systems: ROS reviewed and negative except as documented in HPI and ROS
Constitutional: Reports fatigue; Denies fever
Respiratory: Denies trouble breathing
Cardiac: Denies chest pain
ABD/GI: Denies abdominal pain
: Denies dysuria, frequency or flank pain
Neurological: Denies headache
Phy Exam
Physical Exam
Physical Exam:
General: Awake, alert, oriented x3; no acute distress
Head: Normocephalic, atraumatic
Eyes: Conjunctiva normal
Throat: Airway intact, handling secretions
Neck: Trachea midline
Lungs: Clear to auscultation bilaterally, no wheezing, rales, rhonchi
Heart: Regular rate and rhythm, no murmurs, gallops, or rubs appreciated
Abd: Soft, non distended, nontender
Back: No CVA tenderness
Neuro: Cranial nerves grossly intact, speech fluid, no focal weakness
Extremities: Warm and well-perfused
Scores
Heart Failure Risk
Heart Failure Risk Score: Not Applicable
Heart Score for Chest Pain Patients
STEMI patient?: Not applicable
Withdrawal Assessment of Alcohol
Withdrawal Assessment Completed?: Not applicable
Course
Orders/Labs/Results
Orders:
Orders
04/09/25 19:04
Complete Blood Count/With Diff Urgent
Comprehensive Metabolic Panel Urgent
04/09/25 20:04
Urinalysis Reflex To Culture Urgent
04/09/25 22:48
0.9% Sodium Chloride 1000 ml [Nss] 1,000 ml IV BOLUS
04/09/25 23:46
Electrocardiogram (*1) Urgent
Reason for Study: Fatigue / Weakness
EKG- Treatment ONCE
04/10/25 00:35
Urine Microscopic Reflex Cult Urgent
Urine Culture Urgent
RAVI Source: U
Specimen Description:
Abnormal Lab Results
04/09/25 04/10/25
19:04 00:35
WBC 4.5 L 10^3/uL
(4.8-10.8)
Absolute Lymphs (auto) 0.8 L 10^3/uL
(1.2-3.4)
Lymphocytes % 17.9 L %
(20.5-51.1)
Monocytes % 11.1 H %
(1.7-9.3)
Chloride 108 H mmol/L
(98-107)
Carbon Dioxide 20 L mmol/L
(22-30)
Creatinine 1.2 H mg/dL
(0.6-1.0)
Glucose 109 H mg/dl
(70-99)
AST 8 L U/L
(14-36)
Urine Ketones 1+ A
(Negative)
Leukocyte Esterase Rfl 1+ A
(Negative)
Urine RBC 3-6 A /HPF
(0-2)
Urine Bacteria (Reflex) Few A
(Negative)
Urine Albumin (Reflex) 2+ A
(Neg - Trace)
04/09/25 19:04
04/09/25 19:04
Vital Signs
Initial and Last Documented VS:
Initial Vital Signs
Temp Pulse Resp BP Pulse Ox
36.7 C 95 20 139/75 97
04/09/25 18:26 04/09/25 18:26 04/09/25 18:26 04/09/25 18:26 04/09/25 18:26
Last Documented Vital Signs
Temp Pulse Resp BP Pulse Ox
36.2 C 72 26 121/73 95
04/09/25 22:27 04/10/25 01:00 04/10/25 01:00 04/10/25 01:00 04/10/25 00:45
MDM/Problems Addressed
Differential Diagnosis Includes:
UTI, anemia, dehydration, deconditioning, electrolyte derangement
MDM/Problems Addressed:
79-year-old female presents for evaluation of fatigue/weakness in the setting of recent UTI�completed 5-day course but still feeling very weak and this is her typical UTI symptoms she says. Vitals and exam as above. She had labs sent off including
CBC which showed no anemia, CMP which showed JORDY with a creatinine of 1.2 from baseline of 0.8. Her urinalysis is pending. Will provide some IV fluids as certainly her symptoms could be from some mild dehydration. Will follow-up on urinalysis.
If no convincing UTI on UA would hold on additional antibiotics given her history of repeated courses of antibiotics and lack of urinary symptoms.
Her urinalysis shows only few bacteria but no significant amount of pyuria and multiple squamous cells suggest this is a contaminated sample. She has no fever or leukocytosis in my judgment I think we should hold off on additional antibiotics
pending urine culture. I suspect her symptoms may be secondary to dehydration. She says she is feels a bit better after fluids and wants to go home. Will discharge in keeping with her wishes, she says she has a primary care follow-up appointment in
2 days. All questions answered.
*Pulse Oximetry
Patient hypoxic: no
*Critical Care Note
Total Time (30-74mins, 75-104mins- exclusive of procedures): Not Applicable
Data Reviewed
Source: patient, records and family (Daughter)
Patient Management
Escalation/DeEscalation of care consider admission/obs:
Offered admission�shared decision making opted for discharge with close follow-up
ED Attending Note
-
Portions of this chart may have been created with voice recognition software.� Occasional wrong word or��sound alike� substitutions may have occurred due to the inherent limitations of voice recognition software.
Discharge Plan
Departure
Patient Disposition: Home (Routine Discharge)
Date of Disposition: 04/10/25
Time of Disposition: 01:19
Patient with high blood pressure during this ER visit?: No
Discharge Problem:
Weakness, Dehydration
Instructions: Dehydration, Adult (DC)
Prescriptions:
No Action
quetiapine [Seroquel] 25 mg Tablet
25 mg PO HS
levetiracetam [Keppra] 500 mg Tablet
500 mg PO BID
amlodipine [Norvasc] 5 mg Tablet
5 mg PO DAILY
carbidopa 25 mg Tablet
25 mg PO DAILY
carbidopa-levodopa 25-100 mg Tablet
2 tab PO TID
melatonin 5 mg Tablet
5 mg PO HSPRN PRN (Reason: sleep)
Gocovri 137 mg Capsule,Extended Release 24hr
274 mg PO HS
rasagiline 1 mg Tablet
1 mg PO DAILY
clonazepam 0.5 mg Tablet
0.75 mg PO HS Qty: 5 0RF
cyanocobalamin (vitamin B-12) [Vitamin B-12] 1,000 mcg Tablet
1,000 mcg PO DAILY Qty: 30 0RF
methenamine hippurate 1 gram Tablet
1 g PO BID Qty: 60 0RF
Referrals:
Rachael Adames DO [Family Provider] - Keep scheduled appt
Activity Restrictions/Additional Instructions:
Thank you for visiting the Emergency Department at [facility].
1. Please schedule a follow up appointment as directed. Call first thing tomorrow morning to make an appointment.
2. If indicated, please take your medications as instructed and indicated on discharge paperwork.
3. If any of your symptoms do not improve, or persist, or become more severe within 6-12 hours, please return to the emergency department for further care.
4. Please return to the emergency department if you develop a headache, neck pain/stiffness, fever greater than 100.4F, chest pain, shortness of breath, persistent nausea, vomiting, slurred speech, difficulty walking, numbness/tingling, weakness,
signs of infection or any other symptoms that are worrisome to you.
Please call [phone] if you have any questions.
Interventions
Interventions:
*Risk Screen - Suicide Last Done: 04/09/25 22:25
*General Assessment Last Done: 04/09/25 18:26
*Neglect/Abuse Screening Last Done: 04/09/25 22:25
*ED- Fall Risk Assessment Last Done: 04/09/25 22:25
*ED COVID-19 Vaccine History Last Done: 04/09/25 22:25
ED- Cardiac Assessment Last Done: 04/09/25 22:25
ED- Neurological Assessment Last Done: 04/09/25 22:25
ED- Pulmonary Assessment Last Done: 04/09/25 22:25
Discharge Date and Time
Print Language: WOLOF
[2025-04-10 00:40] VITALS: BP 150/88
[2025-04-10 00:43] LABS: Urine Albumin 2+ (Neg - Trace); Urine Bilirubin Negative (Negative); Urine Character Clear (Clear); Urine Color Amber; Urine Glucose Negative (Negative); Urine Ketone 1+ (Negative); Urine Leukocyte 1+ (Negative); Urine Nitrite Negative (Negative); Urine Occult Blood Negative (Negative); Urine Urobilinogen Negative (Neg - 1+)
[2025-04-10 00:57] LABS: Urine Squamous Cell 26-30 /LPF (Few)
[2025-04-10 00:58] LABS: Urine Hyaline Cast >15 /LPF (0-2)
[2025-04-10 00:59] LABS: Urine Bacteria Few (Negative)
[2025-04-10 01:00] VITALS: BP 121/73
== END 2025-04-10 01:36 | disposition home or self-care (01) ==
LOC: EMR 18:22
PROVIDERS: Student in an Organized Health Care Education/Training Program; EMERGENCY PHYSICIAN Emergency Medicine; FAMILY PHYSICIAN Family Medicine
DX: E86.0 Dehydration (principal); G20.A1 Parkinson's disease without dyskinesia, without mention of fluctuations; I10 Essential (primary) hypertension; N17.9 Acute kidney failure, unspecified; Z87.440 Personal history of urinary (tract) infections
CPT/HCPCS: 99283; 96360; 80053; 81003; 81015; 85025; 87086; 93005

== ENCOUNTER 2025-04-23 08:55 | Inpatient (IN) | payer MEDICARE, BC, SELFPAY ==
[2025-04-21 10:56] VITALS: BP 119/76
--- NOTE | 2025-04-21 12:08 | ED.GENMED ---
History of Present Illness
General
Chief Complaint: Urinary Symptoms
Source: patient
Exam Limitations: none
Time Seen by Provider: 04/21/25 12:05
Nursing documentation reviewed up to this point in time: agreed with
History of Present Illness
History of Present Illness:
Patient is a 79-year-old female with past medical history of Parkinson's, deep brain stimulator, hypertension, recent UTI brought by family. Patient was diagnosed with UTI a couple weeks ago and seen here on April 09 for weakness diagnosed with
dehydration at that time. Urine did not appear infected at that time and patient was discharged home. Patient recently had a fall Wednesday in the kitchen and hit her head on the cabinet and hit her shoulder and back. She was assisted up but has
been no loss of consciousness. Patient is not on blood thinners.
Patient lives with family at bedside who reports patient has had gradual decline since September. Patient has been in out of the hospital for weakness falls and questionable UTIs. Daughter reports pt has gone to rehab and in fact was discharged
from rehab in February from [place] however symptoms have not improved. Daughter reports they are getting worse. She has had intermittent episodes of confusion hallucinations. She has been seen by her neurlogist who feels that this may be UTI
however as documented previous urine was negative.
Daughter reports the hallucinations are not new neurology family doctor are aware and he felt this is related to UTI.
Daughter reports patient was having hallucinations while in the car driving here she was talking to a granddaughter who was not there.
Patient is awake alert.
Left shoulder pain left lower back pain from fall
Past History
Past History
ED Past Medical History: Other (Parkinson's); Negative Seizures
ED Past Surgical History: Brain (Deep brain)
Social History
Tobacco: Non-smoker
Alcohol: Occasional
Drug: None
Personal:
Living: with family
Employment: Retired
Review of Systems
Review of Systems
Allergies reviewed?: Yes
Other source history: family
Constitutional: Reports fatigue (fatigue as per family ); Denies fever
EENT: Reports no symptoms
Respiratory: Reports no symptoms
Cardiac: Reports no symptoms
ABD/GI: Reports no symptoms
: Reports no symptoms
Musculoskeletal: Reports other (right shoulder pain ,low back pain )
Skin: Reports no symptoms
Neurological: Reports other (Increasing confusion as per family)
Psychiatric: Reports hallucinations (Visual hallucinations as per family)
Phy Exam
General Physical Exam
General Presentation: no apparent distress
General Skin: warm and dry
General Habitus: elderly
General Mental: alert
General Hydration: appears well hydrated
Cardiovascular Exam
Cardiovascular Exam: regular rate/rhythm, no murmur and normal peripheral pulses
Pulmonary Exam
Pulmonary Exam: lungs clear and no respiratory distress
Neurological Exam
Neurological Exam: alert and oriented x3
Rosalino Coma Scale
Eye Opening: Spontaneous
Verbal Response: Oriented
Motor Response: Obeys Commands
GCS Total Score: 15
Musculoskeletal Exam
Musculoskeletal Exam: other (No obvious head injury and normal inspection of left shoulder mildly tender good range of motion tender to left para lumbar muscle area no bony midline tenderness)
Skin Exam
Skin Exam: normal color and warm/dry
Psychiatric Exam
Psychiatric Exam: normal mood/affect
Course
Orders/Labs/Results
Orders:
Orders
04/21/25 Breakfast
Regular
At Your Request: Full Participation
04/21/25 12:21
CT Head W/o Iv Contrast Urgent
Comment:
Reason For Exam: change in ms /hit head
04/21/25 12:22
Lumbar Spine Complete, 4 View [CR Lumbar Spine Comp Min 4 Vw*] Urgent
Comment:
Reason For Exam: trauma
Shoulder, Left, Trauma CR [CR Shoulder, Trauma - Left] Urgent
Comment:
Reason For Exam: trauma
04/21/25 12:23
Electrocardiogram (*1) Stat
Reason for Study: Abdominal Pain
Cardiac Monitoring- Treatment ONCE
EKG- Treatment ONCE
IV Insert/Care/Rem.- Treatment PRN
04/21/25 12:42
Complete Blood Count/With Diff Urgent
Comprehensive Metabolic Panel Urgent
Urinalysis Reflex To Culture Urgent
Date Specimen was Collected: 04/21/25
Time Specimen was Collected: 12:24
Urine Microscopic Reflex Cult Urgent
04/21/25 14:06
Add On- LAB Urgent
Tests Added?: troponin
04/21/25 14:49
Troponin I Routine
Comment: NEEDS TO BE COLLECTED
04/21/25 15:39
Admit/Transfer Patient As Directed
Co-Sign Provider:
Level of Care: Observation services
Assign to:: Medical/Surgical
Physician / Group: margaret
Diagnosis: ambulatory dysfunction
Reason for Hospitalization: ambulatory dysfunction
PRN Pain Medication Management As Directed
May give lesser potent ordered pain med per pt: Yes
preference::
Protocol:: Medication orders for pain may be administered in a
manner that supports deferring to patient preference
when the pt is:
- Requesting an ordered lesser potent pain medication.
Least to most potent pain medications are defined
as: acetaminophen < NSAID < tramadol < opioids
(morphine, oxycodone, hydromorphone).
- Requesting a lesser dose of the same medication IF
ORDERED.
- Requesting a less intrusive route of administration
if both routes are prescribed by the provider (PO <
IV).
04/21/25 15:41
Code Status As Directed
Resuscitation Status: Do not resuscitate
Reached after discussion with pt or family/Healthcare POA: Yes
DNR Bracelet Application ONCE
04/21/25 16:48
0.9% Sodium Chloride 1000 ml [Nss] 1,000 ml IV 100 mls/hr
Acetaminophen [Tylenol] 650 mg PO Q4HPRN PRN
Bisacodyl [Dulcolax] 10 mg RECTAL [id number] PRN
Carbidopa/Levodopa [Sinemet 25-100] 2 tablet PO TID
Docusate W/Senna [Senokot-S] 1 tablet PO BIDPRN PRN
Polyethylene Glycol Powder [Miralax] 17 grams PO DAILYPRN PRN
04/21/25 16:48
Activity As Directed
Activity Level: As Tolerated
Vital Signs As Directed
Frequency: Per unit guidelines
Occupational Therapy Consult [Ot Eval And Treat] Routine
Physical Therapy Consult [Pt Eval And Treat] Routine
Activity Level: As Tolerated
DX Deep Vein Thrombosis Video Routine
04/21/25 18:00
Enoxaparin Sodium [Lovenox] 40 mg SC QPM
04/21/25 20:00
Levetiracetam [Keppra] 500 mg PO BID
Methenamine Hippurate [Hiprex] 1 gram PO BID
04/21/25 22:00
Quetiapine Fumarate [Seroquel] 25 mg PO HS
amantadine HCl [Gocovri] 274 mg PO HS
04/22/25 05:10
Basic Metabolic Panel IN AM
04/22/25 08:00
Amlodipine [Norvasc] 5 mg PO DAILY
Cyanocobalamin [Vitamin B-12] 1,000 mcg PO DAILY
Rasagiline Mesylate 1 mg PO DAILY
carbidopa 25 mg PO DAILY
Abnormal Lab Results
04/21/25
12:42
RBC 4.10 L 10^6/uL
(4.20-5.40)
Hct 35.9 L %
(37.0-47.0)
Absolute Lymphs (auto) 0.6 L 10^3/uL
(1.2-3.4)
Absolute Monos (auto) 0.9 H 10^3/uL
(0.1-0.6)
Neutrophils % 77.9 H %
(42.2-75.2)
Lymphocytes % 8.9 L %
(20.5-51.1)
Monocytes % 12.1 H %
(1.7-9.3)
Chloride 109 H mmol/L
(98-107)
Carbon Dioxide 20 L mmol/L
(22-30)
Creatinine 1.2 H mg/dL
(0.6-1.0)
Total Bilirubin 1.4 H mg/dl
(0.2-1.3)
AST 11 L U/L
(14-36)
Urine Ketones 2+ A
(Negative)
Ur Occult Blood Reflex 1+ A
(Negative)
Urine Albumin (Reflex) 2+ A
(Neg - Trace)
04/21/25 12:42
04/21/25 12:42
Vital Signs
Initial and Last Documented VS:
Initial Vital Signs
Temp Pulse Resp BP Pulse Ox
97.4 F 79 16 119/76 96
04/21/25 10:56 04/21/25 10:56 04/21/25 10:56 04/21/25 10:56 04/21/25 10:56
Last Documented Vital Signs
Temp Pulse Resp BP Pulse Ox
98.4 F 81 16 151/77 96
04/22/25 07:36 04/22/25 07:36 04/22/25 07:36 04/22/25 07:36 04/22/25 07:36
MDM/Problems Addressed
Differential Diagnosis Includes:
Not limited to progressive Parkinson's, dementia, infection dehydration UTI
MDM/Problems Addressed:
As documented patient is a 79-year-old female with Parkinson's who has had progressing worsening of symptoms. Patient has had frequent falls change in mental status including recent hallucinations. Daughter reports this is not necessarily new but
they do not feel that they can care for her at home. They have been attributing this to UTI however recent culture results patient was seen here previously were negative. Urinalysis appears negative as well here in the ER. She is afebrile. She
is awake alert she is oriented here. She did have a fall 2 nights ago and hit her head back and shoulder. Will check CAT scan. She is not on blood thinners. No acute findings on x-rays. She is afebrile with normal white count.
However with increasing falls increasing confusion and hallucinations will admit. Patient will likely need possible neuroconsult and rehab/physical therapy.
Patient was admitted to the hospitalist service however I did receive a phone call from radiology who states the patient has a transverse fracture of L2. I did notify Dr. Medina. In addition pt w/ questionable avulsion fx left shoulder
Chronic conditions affecting care:
Parkinson's
*Radiology
Radiology exam reviewed: radiology read reviewed (As per radiology patient with a transverse fracture of L2 process fracture of L2 distally a while ago I did see her elevated reading to have her chart open) that she is)
*Pulse Oximetry
Patient hypoxic: no
*Critical Care Note
Total Time (30-74mins, 75-104mins- exclusive of procedures): Not Applicable
ED Attending Note
-
Portions of this chart may have been created with voice recognition software.� Occasional wrong word or��sound alike� substitutions may have occurred due to the inherent limitations of voice recognition software.
Discharge Plan
Departure
Patient Disposition: Admit
Date of Disposition: 04/21/25
Time of Disposition: 15:09
Admit to: Med/Surg
Admit to doctor: hospitalist
Presentation/result/management discussed w/ accepting MD/DO: Hospitalist
Patient with high blood pressure during this ER visit?: Yes
Condition: Fair
Covid-19: Not Applicable
Discharge Problem:
Altered mental status, Falls frequently, Hallucinations, Lumbar transverse process fracture, Closed fracture of shoulder
Interventions
Interventions:
*Risk Screen - Suicide Last Done: 04/21/25 12:25
*General Assessment Last Done: 04/21/25 12:25
*Neglect/Abuse Screening Last Done: 04/21/25 12:25
*ED COVID-19 Vaccine History Last Done: 04/21/25 17:03
*Nursing Disposition Last Done: 04/21/25 17:32
ED-Female Genitourinary Assessment Last Done: 04/21/25 13:30
Discharge Date and Time
Discharge Date/Time: 04/21/25 17:33
[2025-04-21 12:25] VITALS: BMI 19.3
[2025-04-21 13:00] VITALS: BP 142/77
[2025-04-21 13:10] LABS: ALT (SGPT) < 10 U/L (0-35); AST (SGOT) 11 U/L (14-36); Alkaline Phosphatase 98 U/L (38-126); Blood Urea Nitrogen 15 mg/dl (7-17); Carbon Dioxide 20 mmol/L (22-30); Chloride 109 mmol/L (98-107); Estimated Creatinine Clearance 34 ml/min; Glucose 89 mg/dl (70-99); Potassium 4.5 mmol/L (3.5-5.1); Sodium 141 mmol/L (135-145); Total Bilirubin 1.4 mg/dl (0.2-1.3); Total Protein 7.8 g/dl (6.3-8.2); eGFR 46.62
[2025-04-21 13:11] LABS: % Basophils 0.4 % (0-2); % Eosinophils 0.4 % (0-6); % Immature Granulocytes 0.3 % (0-0.5); % Lymphocytes 8.9 % (20.5-51.1); % Monocytes 12.1 % (1.7-9.3); % Neutrophils 77.9 % (42.2-75.2); Absolute Lymphocytes 0.6 10^3/uL (1.2-3.4); Absolute Monocytes 0.9 10^3/uL (0.1-0.6); Absolute Neutrophils 5.5 10^3/uL (1.4-6.5); Hematocrit 35.9 % (37.0-47.0); Hemoglobin 12.3 g/dL (12.0-16.0); Mean Corp Hgb Conc. 34.3 g/dL (33.0-37.0); Mean Corpuscular Volume 87.6 fL (81.0-99.0); Mean Platelet Volume 9.2 fL (7.4-10.4); Nucleated Red Blood Cells % 0 %; Platelet Count 323 10^3/uL (130-400); Red Cell Dist. Width 13.2 % (11.5-14.5); White Blood Cell Count 7.1 10^3/uL (4.8-10.8)
[2025-04-21 13:22] LABS: Urine Albumin 2+ (Neg - Trace); Urine Bilirubin Negative (Negative); Urine Character Clear (Clear); Urine Color Yellow; Urine Glucose Negative (Negative); Urine Ketone 2+ (Negative); Urine Leukocyte Negative (Negative); Urine Nitrite Negative (Negative); Urine Occult Blood 1+ (Negative); Urine Specific Gravity 1.015 (<1.030); Urine Urobilinogen Negative (Neg - 1+)
[2025-04-21 13:35] LABS: Urine Red Blood Cell 0-2 /HPF (0-2); Urine White Cell 0-2 /HPF (0-5)
--- NOTE | 2025-04-21 15:13 | HPS.HSE ---
Family Physician
-
Family Physician: Rachael Adames, DO
Chief Complaint
-
falls
History of Present Illness
79-year-old female with past medical history of Parkinson's, deep brain stimulator, hypertension, recent UTI brought by family with frequent falls. patient stated that her balance is off and she is falling frequently. the last fall was yesterday in
the kitchen and she hit back of her on the cabinet. she supposed to use walker but barely uses it. she complained of dizzy. denied HERNANDEZ. as per family she hallucinating recently. she is at times more confused. denied fever, chills, congestion and
cough. denied abdominal pain,n,v,d. denied dysuria or hematuria. Patient was diagnosed with UTI a couple weeks ago and seen here on April 09 for weakness diagnosed with dehydration at that time. her neurology thinks that her symptoms are related to
UTI.
admitting for further management.
Medical History
Past Medical History
Past Medical History: Reports Other
Additional Past Medical History:
Parkinson disease
HTN
Past Surgical History: Reports Other
Additional Past Surgical History:
Deep brain stimulator
Social History
Tobacco: Non-smoker
Alcohol: Occasional
Drug: None
Personal:
Living: With Family
Family History
Family History: Not pertinent
Allergies / Home Medications
Allergies reflects when Allergies were last updated in [facility].
Home Medications with original date entered in [facility]
Allergy/Medication List:
Allergies
Allergy/AdvReac Type Severity Reaction Status Date / Time
No Known Allergies Allergy Verified 04/21/25 10:58
Home Medications
amantadine HCl 137 mg capsule,extended release 24 hr (Gocovri) 274 mg PO HS 02/18/25
amlodipine 5 mg tablet (Norvasc) 5 mg PO DAILY Blood Pressure 02/18/25
carbidopa 25 mg tablet 25 mg PO DAILY PARKINSON 02/18/25
carbidopa 25 mg-levodopa 100 mg tablet 2 tab PO TID 02/18/25
levetiracetam 500 mg tablet (Keppra) 500 mg PO BID Seizures 02/18/25
melatonin 5 mg tablet 5 mg PO HSPRN PRN sleep 02/18/25
quetiapine 25 mg tablet (Seroquel) 25 mg PO HS Mental Health/Anxiety 02/18/25
rasagiline 1 mg tablet 1 mg PO DAILY PARKINSON 02/18/25
clonazepam 0.5 mg tablet 0.75 mg (1.5 x 0.5 mg) PO HS #5 tabs 02/24/25
cyanocobalamin (vitamin B-12) 1,000 mcg tablet (Vitamin B-12) 1,000 mcg PO DAILY #30 tabs 02/24/25
methenamine hippurate 1 gram tablet 1 g PO BID #60 tabs 02/24/25
Review of Systems
-
Constitutional: Reports No Symptoms
EENT: Reports No Symptoms
Respiratory: Reports No Symptoms
Cardiac: Reports No Symptoms
Abdomen/GI: Reports No Symptoms
: Reports No Symptoms
Musculoskeletal: Reports No Symptoms
Skin: Reports No Symptoms
Neurological: Reports Weakness
Endocrine: Reports No Symptoms
Hematologic/Lymphatic: Reports No Symptoms
Psych: Reports Audio or Visual Hallucinations and Other (confusion)
Physical Exam
Vital Signs
Vital Signs
Temp Pulse Resp BP Pulse Ox
97.4 F 75 19 142/77 96
04/21/25 10:56 04/21/25 13:15 04/21/25 13:15 04/21/25 13:00 04/21/25 10:56
Physical Exam
General: Well Developed, Well Nourished and No Apparent Distress
HEENT: NormoCephalic, Moist mucous membranes and Atraumatic
Respiratory: Clear
Cardiac: S1/S2 and Regular Rhythm; No Murmur or Rub
GI: Soft, Non Tender, Non Distended and Normal Bowel Sounds; No Organomegaly
Rectal: Deferred by Provider
Musculoskeletal: No Clubbing, No Cyanosis and No Edema
Skin: No Rash
Neuro: AO x 3 and Nonfocal/grossly intact
Psych: Calm
Laboratory Results
-
04/21/25 12:42
04/21/25 12:42
Laboratory Results
Total Bilirubin 1.4 mg/dl (0.2-1.3) H 04/21/25 12:42
AST 11 U/L (14-36) L 04/21/25 12:42
ALT < 10 U/L (0-35) 04/21/25 12:42
Alkaline Phosphatase 98 U/L (38-126) 04/21/25 12:42
Data Reviewed
-
CT Scan: Report Reviewed by me
Lab Data: Labs Reviewed by me
Impression/Plan
-
# Increased fall/metabolic encephalopathy concern for exacerbation of Parkinson disease
-UA negative
- Head CT with no acute intracranial abnormality
- Shoulder x-ray pending
- Lumbar spine x-ray pending
-pt/ot consulted
# Acute kidney injury likely dehydration
- Creatinine 1.2
-normal saline x1 bag
-bmp in am
Parkinson's disease
Continue home Sinemet amantadine rasagiline
#Essential hypertension
Continue amlodipine 5 mg daily
#Anxiety
#Seroquel continued
#seizure
#deep Brain stimulator
-Keppra continued
#Constipation
cont bowel regimen
Moderate protein calorie malnutrition
DVT prophylaxis�subcu Lovenox
DNR
[2025-04-21 15:27] LABS: Troponin I < 0.012 ng/ml
--- NOTE | 2025-04-21 15:47 | W.PN.UPDATE ---
Addendum entered and electronically signed by Roland Medina MD 04/21/25 20:52:
Patient with L2 transverse fracture. Tylenol as needed.
Original Note:
Update Note
Progress Note Update
This is an addendum to the H&P written by Lorraine Garcia on 04/21/2025.� Patient seen and examined independently with [employer].
79-year-old female past medical history of Parkinson's with deep brain stimulator, hypertension, anxiety, recurrent UTI, hypertension, B12 deficiency, presenting with feeling off balance and increasing falls recently hitting her head.� More confused
and hallucinating.�
She was treated for UTI few weeks ago but despite this she is having worsening symptoms.
Labs show creatinine 1.2, slight JORDY.
CT head shows no acute abnormality.� Shoulder and lumbar spine x-ray pending.� Urinalysis unremarkable.
Patient with likely progressive Parkinson's disease and needs to follow-up with her neurologist at [place].� Will treat with IV fluids for prerenal JORDY.� PT/OT, case management.
--- NOTE | 2025-04-21 16:14 | CM ---
CM met with pt, spouse/Koko and dtr/Cathy bedside
Pt nd spouse resides in an apartment above a garage with 21STE
Pt is indep with use of a WW as PRN, no longer driving
Recently closed to [facility]
No financial insecurities
Hx [facility] during 02/18-02/24 admission to [facility]
PCP- Rachael Adames
Rx- [facility]
Discharge Disposition- home, follow for needs
[2025-04-21 16:52] VITALS: BMI 18.9
[2025-04-21 17:00] VITALS: BP 145/83
[2025-04-21] MEDS: NSS 1000 IV (17:29)
[2025-04-21] MEDS: SINEMET 25-100 2 TABLET PO ×2 (17:30→22:04)
[2025-04-21] MEDS: LOVENOX 40 MG SC (17:30)
[2025-04-21] MEDS: HIPREX 1 GRAM PO (22:04)
[2025-04-21] MEDS: KEPPRA 500 MG PO (22:04)
[2025-04-21] MEDS: SEROQUEL 25 MG PO (22:04)
[2025-04-21 23:00] VITALS: BP 143/80
--- NOTE | 2025-04-22 01:45 | PTCARENOTE ---
Pt agitated, frequent attempts to get out of bed. Reports 'going to wedding'. Cursing and striking out at staff attempting to redirect. Oriented only to self and unable to be reasoned with/redirected. Staff 1:[address], pt continued agitation,
kicking at 1:1. 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 Risperdal administered and continued 1:1 support. Pt starting to settle by time restraint order obtained - restraints not placed at this time as it would further
agitation.
[2025-04-22] MEDS: RISPERDAL M-TAB (ORALLY DISINTEGRATING) 0.25 MG PO (01:55)
--- NOTE | 2025-04-22 03:49 | PTCARENOTE ---
After Risperdal admin pt calmly talking to self in bed. At this time, pt attempting to get up again - agitated with staff redirection, becoming agressive and attempting to hit/kick. B/l wrist restraints applied at this time. Pt made comfortable in
bed with pillows and warm blanket, offered drink and took some. Now lying in bed quietly with soft limb wrist restraints in place.
[2025-04-22 06:00] VITALS: BMI 19.8
[2025-04-22 06:23] LABS: Blood Urea Nitrogen 11 mg/dl (7-17); Calcium 8.8 mg/dl (8.4-10.2); Carbon Dioxide 21 mmol/L (22-30); Chloride 113 mmol/L (98-107); Estimated Creatinine Clearance 49 ml/min; Glucose 79 mg/dl (70-99); Sodium 143 mmol/L (135-145); eGFR > 60.00
[2025-04-22 07:36] VITALS: BP 151/77
[2025-04-22] MEDS: HIPREX 1 GRAM PO ×2 (07:40→21:27)
[2025-04-22] MEDS: VITAMIN B-12 1000 MCG PO (07:41)
[2025-04-22] MEDS: NORVASC 5 MG PO (07:41)
[2025-04-22] MEDS: KEPPRA 500 MG PO ×2 (07:41→21:27)
[2025-04-22] MEDS: SINEMET 25-100 2 TABLET PO ×3 (07:44→21:27)
[2025-04-22] MEDS: RASAGILINE MESYLATE 1 MG PO (07:58)
--- NOTE | 2025-04-22 10:43 | W.PN.HOSP.TC ---
Today's Communication/Plan
-
see bold
Assessment / Plan
Assessment / Plan
Gen: NAD, awake alert and oriented x 2�3 (think she is at [facility] as opposed to [facility])
Eyes: EOMI, PERRLA, no scleral icterus.
Neck: supple.
CV: RRR, +S1/S2, no m/r/g.
Resp: CTAB, no rales, wheezes, or rhonchi.
Abd: +BS, soft, NT, ND
Skin: No rashes.
Neuro: CN 2-12 intact, non-focal. Resting tremor.
Psych: Normal mood and affect.
CT Brain: No acute intracranial abnormality noted.
L-spine Xray: Findings suggesting acute mildly displaced fracture of the L2 left transverse process.
L shoulder Xray: Probable soft tissue calcifications versus tiny avulsion fractures about the left humeral head. Moderate AC joint and glenohumeral joint osteoarthritis. Bony demineralization.
Increased falls:
-likely due to progression of Parkinson's disease
-imaging above, notable for acute mildly displaced fracture of the L2 left transverse process and probable soft tissue calcifications versus tiny avulsion fractures about the left humeral head
-pain control, PT/OT
- On my evaluation today, I doubt the patient had acute metabolic encephalopathy. I think it is more likely that she has Parkinson's disease with progression of parkinsonian dementia.
Other problems:
JORDY, resolved with IVFs
Parkinson's disease: cont Sinemet/amantadine/rasagiline
Essential HTN: cont Norvasc
Anxiety: Cont Seroquel
Seizure d/o s/p deep brain stimulator: cont Keppra
Constipation: cont bowel regimen
Moderate protein calorie malnutrition
DNR/Lovenox
Medically for discharge. Case management aware.
Anticipated Discharge: Today
Subjective/Interval History
-
Date of Service: April 22, 2025
Denies chest pain or shortness of breath.
Objective Data
-
Labs:
Laboratory Results
04/22/25
05:10
Sodium 143
Potassium 4.0
Chloride 113 H
Carbon Dioxide 21 L
BUN 11
Creatinine 0.8
Glucose 79
Calcium 8.8
Vital Signs:
Vital Signs
Temp Pulse Resp BP Pulse Ox
98.4 F 81 16 151/77 96
04/22/25 07:36 04/22/25 07:36 04/22/25 07:36 04/22/25 07:36 04/22/25 07:36
--- NOTE | 2025-04-22 10:54 | CM ---
Patient seen at bedside
PT/OT to eval
CM consult Advanced Directives-resources left with patient-daughter aware
discussed with daughter - OBS status - form explained, in chart
PLAN: tbd, await PT/OT eval, follow for needs
--- NOTE | 2025-04-22 13:33 | PTCARENOTE ---
This RN assumed care of pt when transferred into room 324. Pt calm, resting in bed. B/l wrist restraints removed @10am. Pt ate breakfast, and making no attempts to get out of bed at the time. Pt having auditory and visual hallucinations- seeing
babies in the room. Bed alarm in place and room close to nurses station. Will continue to monitor for any continued restraint needs.
[2025-04-22 15:00] VITALS: BP 153/81
--- NOTE | 2025-04-22 15:34 | FALL ---
Description of Fall:
Pt experienced and unwitnessed fall after trial of restraint removal. Bed alarm was in place. Staff immediately @bedside found pt on floor. Pt has hx of Parkinsons dementia but denies hitting her head and complains of pain in R elbow. VS taken and
stable. cross coverage MD made aware. who had been @bedside left without notifying staff. restraints reapplied at this time.
Injuries Noted:
L elbow
Action Taken:
Reapply restraints
Name of Provider Notified: Dr Mendez
[2025-04-22] MEDS: LOVENOX 40 MG SC (17:08)
[2025-04-22] MEDS: SEROQUEL 25 MG PO (21:27)
[2025-04-22] MEDS: MELATONIN 5 MG PO (22:28)
[2025-04-22 23:00] VITALS: BP 118/65
[2025-04-23] MEDS: RISPERDAL M-TAB (ORALLY DISINTEGRATING) 0.25 MG PO (04:04)
[2025-04-23 05:17] VITALS: BMI 18.4
[2025-04-23 07:10] VITALS: BP 159/91
[2025-04-23] MEDS: SINEMET 25-100 2 TABLET PO ×3 (08:23→21:25)
[2025-04-23] MEDS: NORVASC 5 MG PO (08:23)
[2025-04-23] MEDS: KEPPRA 500 MG PO ×2 (08:23→20:58)
[2025-04-23] MEDS: RASAGILINE MESYLATE 1 MG PO (08:24)
[2025-04-23] MEDS: HIPREX 1 GRAM PO ×2 (08:24→20:58)
[2025-04-23] MEDS: VITAMIN B-12 1000 MCG PO (08:24)
[2025-04-23 10:10] VITALS: BP 130/82; PULSE 93; O2SAT 94
[2025-04-23 10:11] VITALS: BP 130/82; PULSE 94; O2SAT 95
--- NOTE | 2025-04-23 10:15 | CM ---
tt from [facility] - LOC change inpatient
spoke with daughter Cathy - reviewed IMM - placed in chart
PT/OT to eval
discussed if patient rec SNF she would like [facility]
PLAN: await PT/OT evals, CM will continue to follow
[2025-04-23] MEDS: MAGNESIUM OXIDE 250 MG PO ×2 (11:09→17:04)
[2025-04-23 11:32] LABS: Blood Urea Nitrogen 13 mg/dl (7-17); Calcium 8.9 mg/dl (8.4-10.2); Carbon Dioxide 19 mmol/L (22-30); Chloride 113 mmol/L (98-107); Estimated Creatinine Clearance 48 ml/min; Glucose 104 mg/dl (70-99); Potassium 3.8 mmol/L (3.5-5.1); Sodium 143 mmol/L (135-145); eGFR > 60.00
--- NOTE | 2025-04-23 11:44 | CON.ORTHO ---
Consultation
-
Date/Time Consultation Requested: May 16/0944
Date/Time Consultation Performed: May 16/1144
Requesting Provider: Paula
Performing Provider: Clem Corcoran
Reason for Consultation: Left shoulder avulsion Fx
Consultation - Orthopedics
History
History of Present Illness:
79-year-old white female with PMH of Parkinson's (deep brain stimulator) and hypertension, recently Dx with UTI, brought by family with frequent falls. patient stated that her balance is off and she is falling frequently. the last fall was Wednesday
in the kitchen and she hit back of her on the cabinet. she is supposed to use walker but barely uses it. she complained of dizzy. denied HERNANDEZ. as per family she hallucinating recently. she is at times more confused. denied fever, chills, congestion
and cough. Patient was diagnosed with UTI a couple weeks ago and seen here on April 09 for weakness diagnosed with dehydration at that time. Per neurology they believed her symptoms were related to UTI. Workup currently ongoing for this admission.
Apparently there was a complaint of some left shoulder discomfort. X-rays revealed a small possible fracture of the humeral head, therefore we will requested in consultation.
Past Medical History:
Parkinson disease
HTN
Past Surgical History:
Deep brain stimulator
Social History:
Tobacco: Non-smoker
Alcohol: Occasional
Drug: None
Personal:
Living: With Family
Family History:
Family History: Not pertinent
ROS:
12 point negative except those mentioned in the HPI
Allergies / Home Medications
Allergy/AdvReac Type Severity Reaction Status Date / Time
No Known Allergies Allergy Verified 04/21/25 10:58
�Medication �Instructions �Recorded
amantadine HCl 137 mg 274 mg PO HS Neurological Condition 02/18/25
capsule,extended release 24 hr
(Gocovri)
carbidopa 25 mg tablet 25 mg PO DAILY PARKINSON 02/18/25
carbidopa 25 mg-levodopa 100 mg 2 tab PO TID PARKINSON'S 02/18/25
tablet
levetiracetam 500 mg tablet 500 mg PO BID Seizures 02/18/25
(Keppra)
quetiapine 25 mg tablet (Seroquel) 25 mg PO HS Mental Health/Anxiety 02/18/25
rasagiline 1 mg tablet 1 mg PO DAILY PARKINSON 02/18/25
methenamine hippurate 1 gram tablet 1 g PO BID #60 tabs 02/24/25
amlodipine 2.5 mg tablet 2.5 mg PO DAILY Blood Pressure 04/21/25
clonazepam 0.5 mg tablet 0.5 mg PO HS Sleep 04/21/25
cyanocobalamin (vitamin B-12) 1,000 mcg PO QPM Supplement 04/21/25
1,000 mcg tablet (Vitamin B-12)
magnesium 250 mg tablet 250 mg PO QPM Supplement 04/21/25
Vital Signs / Lab Results
Temp Pulse Resp BP Pulse Ox
98.2 F 96 16 159/91 95
04/23/25 07:10 04/23/25 08:23 04/23/25 07:10 04/23/25 08:23 04/23/25 07:10
04/21/25 12:42
04/23/25 10:22
Assessment / Plan
PE: Afeb. Patient currently at bedrest in restraints. AAO x 2. Cannot quite recall when she fell, and reports falling often. directed evaluation of the left shoulder reveals skin intact. No obvious or palpable deformities. Some focal tenderness
over the anterior lateral humeral head. Again, currently in restraints the range of motion was difficult to assess. The minimal motion she does have is painful over the lateral shoulder. A little weakness with external rotation. Elbow, wrist,
hand all move well. Neurovascularly intact.
Xrays: Small cortical irregularity of the superolateral humeral head
Impression: Fracture (with avulsion component) of the LEFT humeral head
Plan: I did discuss with the patient bedside. She seemed to comprehend the conversation. she understands she appears to have a small fracture of the left humeral head, which will not require any type of surgical intervention. although she is
currently in restraints a sling to the LUE might be beneficial. Order placed. Would not lift or weight-bear through the LUE until further notice. Although this fracture could have occurred acutely, it could be subacute. Once she is medically
optimized and discharged we would be happy to follow-up in the office for repeat x-rays and clinical exam. Based on pain initiating some PT will probably be recommended. No advanced imaging at this time would change my treatment approach.
Discussed with Dr. Mitchell. Orthopaedics to sign off for now. Please reengage with any pertinent questions related to her left shoulder as necessary.
--- NOTE | 2025-04-23 14:10 | CM ---
LOC change to inpatient
IMM explained to daughter. In chart
PT rec SNF
options reviewed with daughter - prefers [facility]
PLAN: SNF, pending bed availability when stable.
[2025-04-23 14:16] VITALS: BMI 18.4
[2025-04-23 15:10] VITALS: BP 115/84
[2025-04-23] MEDS: LOVENOX 40 MG SC (17:05)
--- NOTE | 2025-04-23 17:35 | W.PN.HOSP.TC ---
Today's Communication/Plan
-
CT
EEG
Neuro eval
PT OT
TLSO Brace
Assessment / Plan
Assessment / Plan
79-year-old female with falls she supposed to use a walker but barely uses it. She has confusion episodes since September with UTIs. She and her lives on Daughter's property . Functions.ADL independent, showers, eats on her Own. Tremors are
worse. She has been taking her meds as prescribed. She drove herself to ER on 04/09/25 ( gave her the hodgson) She was seen in ER and was discharged. She came for a UTI.
Shoulder X ray- Probable soft tissue calcifications versus tiny avulsion fractures about the left humeral head. See above. Clinical correlation recommended.Moderate AC joint and glenohumeral joint osteoarthritis.Bony demineralization
X ray -L Spine- Findings suggesting acute mildly displaced fracture of the L2 left transverse process.
# Increased falls likely secondary to Parkinson disease
Daughter states that patient has been declining since September
Periods Of confusion starting since September
Check orthostatic hypotension could be also contributing
Discussed with daughter patient cannot get an MRI unless she is at [place] due to the deep brain stimulator.
Check EEG
Neurology evaluation
#Acute mildly displaced fracture of the L2 left transverse process
Pain control
TLSO brace ordered
PT OT
# Possible soft tissue calcification versus tiny avulsion fracture of the left humeral head
Orthopedics evaluation Appreciated
No interventions, OP Follow up.
# Weight loss 30- 35 lbs Since September. check CAT scan of the chest abdomen and pelvis
# Mental status change-? Due to PD plus?
# Acute Kidney Injury-resolved with IV fluids
# Parkinson disease- Deep Brain Stimulator in 2019 for tremors- continue Sinemet, Amantadine and Rasagiline. Seroquel for symptoms.
# Hypertension-Continue Norvasc
# Seizure Disorder -Continue Keppra. Check EEG.
# Constipation-Continue bowel regimen
# Moderate protein calorie Malnutrition
# DVT prophylaxis-Lovenox
# DNR status
Nursing to inform family to bring non formulary medicines
D/W Daughter
Part of this note was created using voice recognition system. Occasional wrong word or��sound alike� substitutions may have inadvertently occurred due to the inherent limitations of voice recognition software. If noted kindly bring it to my
attention for correction.
Anticipated Discharge: 24 - 48 hours
Subjective/Interval History
-
Date of Service: April 23, 2025
Objective Data
-
Labs:
Laboratory Results
04/23/25
10:22
Sodium 143
Potassium 3.8
Chloride 113 H
Carbon Dioxide 19 L
BUN 13
Creatinine 0.8
Glucose 104 H
Calcium 8.9
Vital Signs:
Vital Signs
Temp Pulse Resp BP Pulse Ox
98 F 84 16 115/84 97
04/23/25 15:10 04/23/25 15:10 04/23/25 15:10 04/23/25 15:10 04/23/25 15:10
I&O
04/22/25 04/23/25 04/24/25
06:59 06:59 06:59
Intake Total 1140 / 1140
Balance 1140 / 1140
[2025-04-23] MEDS: SEROQUEL 25 MG PO (21:25)
[2025-04-23 23:53] VITALS: BP 112/72
[2025-04-24 06:00] VITALS: BMI 18.8
[2025-04-24 07:50] VITALS: BP 135/78
[2025-04-24] MEDS: RASAGILINE MESYLATE 1 MG PO (09:03)
[2025-04-24] MEDS: VITAMIN B-12 1000 MCG PO (09:03)
[2025-04-24] MEDS: KEPPRA 500 MG PO (09:03)
[2025-04-24] MEDS: HIPREX 1 GRAM PO (09:03)
[2025-04-24] MEDS: NORVASC 5 MG PO (09:04)
[2025-04-24] MEDS: SINEMET 25-100 2 TABLET PO ×2 (09:07→15:52)
[2025-04-24] MEDS: OMNIPAQUE 50 ML PO (09:07)
--- NOTE | 2025-04-24 09:42 | CM ---
Reviewed the chart notes and spoke with [facility] admissions liaison. They are reviewing for short term. CM continues to be available to patient/family and is monitoring medical plan for needs at discharge.
Plan: Discharge to SNF/rehab once bed secured. Patient's primary is Medicare, no precert will be required.
--- NOTE | 2025-04-24 10:51 | EEG.RPT ---
Electroencephalogram Report
Recording
Date of EE04/24/25
Type of EEG: Routine
Length of EEG recordin mins
Done with Video Recording: Yes
Patient Status: Inpatient
Recording Conditions: Awake, Moving and Confused
Hyperventilation Performed: No
Photic Stimulation Performed: Yes
Report
Clinical Background:�She is a 79 year old woman with Parkinson's dementia with psychosis being evaluated for altered mental status
Introduction: A routine bedside EEG was done using International 10-20 electrode placement protocol.
Background: In the most alert state, the PDR is 10-11 Hz in frequency with normal amplitude. There is spontaneous variability and reactivity.�There is excessive muscle artifact in the bitemporal region, and the specimen technician notes tremors, movement,
agitation, restlessness constantly throughout the study
Sleep: No sleep is seen.�
Focal/epileptiform: There were no focal or epileptiform discharges. No clinical or electrographic seizures occurred during this recording.
Photic stimulation: resulted in no background change. There was no photo myogenic or photoparoxysmal response.�
Impression: Normal EEG
[2025-04-24 14:50] VITALS: BP 165/83
--- NOTE | 2025-04-24 15:21 | W.PN.HOSP.TC ---
Today's Communication/Plan
-
Start AB and watch
Covid testing.
Neuro eval.
Assessment / Plan
Assessment / Plan
79-year-old female with falls she supposed to use a walker but barely uses it. She has confusion episodes since September with UTIs. She and her lives on Daughter's property . Functions.ADL independent, showers, eats on her Own. Tremors are
worse. She has been taking her meds as prescribed. She drove herself to ER on 04/09/25 ( gave her the hodgson) She was seen in ER and was discharged. She came for a UTI.
Shoulder X ray- Probable soft tissue calcifications versus tiny avulsion fractures about the left humeral head. See above. Clinical correlation recommended.Moderate AC joint and glenohumeral joint osteoarthritis.Bony demineralization
X ray -L Spine- Findings suggesting acute mildly displaced fracture of the L2 left transverse process.
CT chest abdomen pelvis-mild thank you right upper lobe groundglass opacities probably parenchymal scarring. Interstitial lung disease or developing pneumonia masses cannot be excluded especially considering patient's history PET imaging
recommended. Mild right lower lobe consolidation likely atelectasis. Too small to characterize hypodense hepatic lesions cyst versus hemangioma. Bilateral too small to characterize hypodense renal lesions likely benign cyst. Mild fecal material
in the colon. Acute appearing L1-L3 transverse process fractures additional old fractures noted upper thoracic spine shows a sclerotic vertebral body therefore a pathological fracture due to osseous metastatic disease cannot be excluded.
CVS: S1-S2 normal
Chest: CTA B/L
Abdomen: Soft, NT / Bowel sounds present
Extremities: No edema, normal pulses
INDIVIDUALIZED EDUCATION PLAN AIDE: Mild rigidity on the left side especially left arm, confused not able to tell me where she is
# Increased falls likely secondary to Parkinson disease
Daughter states that patient has been declining since September
Periods Of confusion starting since September
Check orthostatic hypotension could be also contributing
Discussed with daughter patient cannot get an MRI unless she is at [place] due to the deep brain stimulator.
EEG without any acute changes
Neurology evaluation
Will start ceftriaxone and doxycycline for the known findings.
Check COVID serology
#Acute mildly displaced fracture of the L1- L2 left transverse process
Pain control
TLSO brace ordered
PT OT
# Possible soft tissue calcification versus tiny avulsion fracture of the left humeral head
Orthopedics evaluation Appreciated
No interventions, OP Follow up.
Since on restraints she is not able to wear the brace
# Weight loss 30- 35 lbs Since September. CAT scan as above. Needs outpatient workup
# Mental status change-? Due to PD plus?
# Acute Kidney Injury-resolved with IV fluids
# Parkinson disease- Deep Brain Stimulator in 2019 for tremors- continue Sinemet, Amantadine and Rasagiline. Seroquel for symptoms.
# Hypertension-Continue Norvasc
# Seizure Disorder -Continue Keppra. No seizures on EEG.
# Constipation-Continue bowel regimen
# Moderate protein calorie Malnutrition
# DVT prophylaxis-Lovenox
# DNR status
D/W Daughter at bedside
Discussed with nursing
Part of this note was created using voice recognition system. Occasional wrong word or��sound alike� substitutions may have inadvertently occurred due to the inherent limitations of voice recognition software. If noted kindly bring it to my
attention for correction.
Anticipated Discharge: > 48 hours
Subjective/Interval History
-
Date of Service: April 24, 2025
Objective Data
-
Vital Signs:
Vital Signs
Temp Pulse Resp BP Pulse Ox
98.0 F 85 17 165/83 98
04/24/25 14:50 04/24/25 14:50 04/24/25 14:50 04/24/25 14:50 04/24/25 14:50
I&O
04/23/25 04/24/25 04/25/25
06:59 06:59 06:59
Intake Total 1140 / 1140 120 / 120
Balance 1140 / 1140 120 / 120
[2025-04-24 15:40] VITALS: BP 146/74
[2025-04-24] MEDS: STERILE WATER FOR INJECTION 10 ML IV (15:52)
[2025-04-24] MEDS: ROCEPHIN 1000 MG IV (15:53)
[2025-04-24] MEDS: SENOKOT-S 1 TABLET PO (15:55)
[2025-04-24 16:13] LABS: COVID-19 Antigen Negative (Negative)
[2025-04-24 16:53] LABS: Vitamin B12 925 pg/ml (239-931)
[2025-04-24] MEDS: LOVENOX 40 MG SC (17:13)
[2025-04-24] MEDS: MAGNESIUM OXIDE 250 MG PO (17:14)
[2025-04-24] MEDS: SEROQUEL 25 MG PO (19:22)
--- NOTE | 2025-04-24 19:25 | PTCARENOTE ---
Pt becoming very agitating, flinging legs over side rails and kicking at staff members. MD notified. Seroquel ordered for now and administered. b/l wrist restraints in place in addition to bed alarm. Plan of care ongoing.
[2025-04-24] MEDS: SINEMET 25-100 PO ×2 (21:07→23:17)
[2025-04-24] MEDS: KEPPRA PO ×2 (21:07→23:13)
[2025-04-24] MEDS: MELATONIN PO ×2 (21:08→23:17)
[2025-04-24] MEDS: NON-FORMULARY ITEM PO ×2 (21:08→23:17)
--- NOTE | 2025-04-24 21:20 | PTCARENOTE ---
While going into patient's room to administer night time medications, this RN found patient dangling legs over the side rails of the bed. This RN attempted to reorient patient and help her move her legs back in bed. Patient became increasingly
agitated and began kicking this RN in the chest and face. Also began screaming at the top of her lungs, calling this RN names and threatening to kill staff. B/L wrist restraints maintained. LORRIE Bedoya notified of patient's behavior. 4 point
restraints ordered and placed on patient. Plan of care ongoing.
--- NOTE | 2025-04-24 22:00 | PTCARENOTE ---
This RN attempted to administer medications to patient. Patient screaming loudly that she will not take them. This RN tried to put medications in applesauce to make it easier for pt take. Patient spitting applesauce out and spitting at this RN. 4
point restraints maintained. Plan of care ongoing.
[2025-04-24 23:28] VITALS: BP 152/68
--- NOTE | 2025-04-25 02:09 | PTCARENOTE ---
Pct was notified by Selvin Rinaldi that she needed assistance with pt due to the pt kicking and screaming while administering medication, I the pct entered the room to assist when seeing the pt's legs were over the bed rail trying to get out of the
bed, I approached the pt nice and slow and tried to assist pts legs fully back in bed. Pt then started kicking me and the Rn in our chest and also trying to punch us. We let the pt know that this wasn't appropriate and insisted that she stop kicking
and punching staff. pt then preceded to kick me in the face and chest. I assisted rn with 4 point restraints. Pct is continuing care when needed.
AW 04/24/2025
[2025-04-25 06:00] VITALS: BMI 18.4
[2025-04-25 06:12] LABS: Hematocrit 35.4 % (37.0-47.0); Hemoglobin 11.9 g/dL (12.0-16.0); Mean Corp Hgb Conc. 33.6 g/dL (33.0-37.0); Mean Corpuscular Hgb 30.1 pg (27.0-31.0); Mean Corpuscular Volume 89.4 fL (81.0-99.0); Mean Platelet Volume 9.5 fL (7.4-10.4); Platelet Count 276 10^3/uL (130-400); Red Blood Cell Count 3.96 10^6/uL (4.20-5.40); White Blood Cell Count 4.3 10^3/uL (4.8-10.8)
[2025-04-25 07:00] VITALS: BP 153/84
[2025-04-25 07:15] LABS: Blood Urea Nitrogen 24 mg/dl (7-17); Carbon Dioxide 16 mmol/L (22-30); Chloride 114 mmol/L (98-107); Estimated Creatinine Clearance 55 ml/min; Glucose 86 mg/dl (70-99); Potassium 4.2 mmol/L (3.5-5.1); Sodium 145 mmol/L (135-145); eGFR > 60.00
[2025-04-25] MEDS: VITAMIN B-12 1000 MCG PO (09:51)
[2025-04-25] MEDS: KEPPRA 500 MG PO ×2 (09:51→20:15)
[2025-04-25] MEDS: RASAGILINE MESYLATE 1 MG PO (09:51)
[2025-04-25] MEDS: SINEMET 25-100 2 TABLET PO ×3 (09:51→22:08)
[2025-04-25] MEDS: NON-FORMULARY ITEM 25 MG PO (09:52)
[2025-04-25] MEDS: NORVASC 5 MG PO (09:52)
[2025-04-25 10:55] VITALS: BP 142/80; PULSE 90; O2SAT 96
[2025-04-25 11:06] VITALS: BP 142/80; PULSE 90; O2SAT 96
--- NOTE | 2025-04-25 14:46 | W.PN.HOSP.TC ---
Today's Communication/Plan
-
Ortho static vitals ordered - not done
Pls do
Psych eval
Continue AB
Assessment / Plan
Assessment / Plan
79-year-old female with falls she supposed to use a walker but barely uses it. She has confusion episodes since September with UTIs. She and her lives on Daughter's property . Functions.ADL independent, showers, eats on her Own. Tremors are
worse. She has been taking her meds as prescribed. She drove herself to ER on 04/09/25 ( gave her the hodgson) She was seen in ER and was discharged. She came for a UTI.
Shoulder X ray- Probable soft tissue calcifications versus tiny avulsion fractures about the left humeral head. See above. Clinical correlation recommended.Moderate AC joint and glenohumeral joint osteoarthritis.Bony demineralization
X ray -L Spine- Findings suggesting acute mildly displaced fracture of the L2 left transverse process.
CT chest abdomen pelvis-mild thank you right upper lobe groundglass opacities probably parenchymal scarring. Interstitial lung disease or developing pneumonia masses cannot be excluded especially considering patient's history PET imaging
recommended. Mild right lower lobe consolidation likely atelectasis. Too small to characterize hypodense hepatic lesions cyst versus hemangioma. Bilateral too small to characterize hypodense renal lesions likely benign cyst. Mild fecal material
in the colon. Acute appearing L1-L3 transverse process fractures additional old fractures noted upper thoracic spine shows a sclerotic vertebral body therefore a pathological fracture due to osseous metastatic disease cannot be excluded.
CVS: S1-S2 normal
Chest: CTA B/L
Abdomen: Soft, NT / Bowel sounds present
Extremities: No edema, normal pulses
SHOP AND ALTERATION TAILOR: Mild rigidity on the left side especially left arm, confused not able to tell me where she is, thinks she is at [place].
# Increased falls likely secondary to Parkinson disease
Daughter states that patient has been declining since September
Periods Of confusion starting since September
Ortho static vitals ordered - not done
Discussed with daughter patient cannot get an MRI unless she is at [place] due to the deep brain stimulator.
EEG without any acute changes
Neurology evaluation and Psyche eval
Started ceftriaxone and doxycycline for the known findings.
COVID neg
#Acute mildly displaced fracture of the L1- L3 left transverse process
Pain control
TLSO brace ordered for PT
PT OT
# Possible soft tissue calcification versus tiny avulsion fracture of the left humeral head
Orthopedics evaluation Appreciated
No interventions, OP Follow up.
Since on restraints she is not able to wear the brace
# Weight loss 30- 35 lbs Since September. CAT scan as above. Needs outpatient workup including PET scan . D/W Daughter.
# Mental status change-? Due to PD plus?
# Acute Kidney Injury-resolved with IV fluids
# Parkinson disease- Deep Brain Stimulator in 2019 for tremors- continue Sinemet, Amantadine and Rasagiline. Seroquel for symptoms.
# Hypertension-Continue Norvasc
# Seizure Disorder -Continue Keppra. No seizures on EEG.
# Constipation-Continue bowel regimen
# Moderate protein calorie Malnutrition
# DVT prophylaxis-Lovenox
# DNR status
D/W Daughter at bedside
Discussed with nursing
Part of this note was created using voice recognition system. Occasional wrong word or��sound alike� substitutions may have inadvertently occurred due to the inherent limitations of voice recognition software. If noted kindly bring it to my
attention for correction.
Anticipated Discharge: 24 - 48 hours
Subjective/Interval History
-
Date of Service: April 25, 2025
Objective Data
-
Labs:
Laboratory Results
04/25/25
05:59
WBC 4.3 L
Hgb 11.9 L
Hct 35.4 L
Plt Count 276
Sodium 145
Potassium 4.2
Chloride 114 H
Carbon Dioxide 16 L
BUN 24 H
Creatinine 0.7
Glucose 86
Calcium 9.0
Vital Signs:
Vital Signs
Temp Pulse Resp BP Pulse Ox
98.3 F 82 17 153/84 95
04/25/25 07:00 04/25/25 09:52 04/25/25 07:00 04/25/25 09:52 04/25/25 07:00
I&O
04/24/25 04/25/25 04/26/25
06:59 06:59 06:59
Intake Total 120 / 120 240 / 240
Balance 120 / 120 240 / 240
[2025-04-25 15:00] VITALS: BP 124/70
[2025-04-25] MEDS: ROCEPHIN 1000 MG IV (15:41)
[2025-04-25] MEDS: STERILE WATER FOR INJECTION 10 ML IV (15:41)
[2025-04-25] MEDS: SODIUM BICARBONATE 650 MG PO ×2 (15:41→22:08)
[2025-04-25] MEDS: NSS 1000 IV (15:42)
--- NOTE | 2025-04-25 16:56 | CM ---
Patient chart reviewed
Referral in [facility] for [facility]
per note patient needing restraints
will need to be off restraints 24hr. for SNF
PLAN: SNF, pending bed availability when medically stable
[2025-04-25] MEDS: MAGNESIUM OXIDE 250 MG PO (17:11)
[2025-04-25] MEDS: LOVENOX 40 MG SC (17:11)
[2025-04-25 18:03] VITALS: BP 131/74; BP 132/76; BP 99/74; PULSE 105; PULSE 97
[2025-04-25] MEDS: SEROQUEL 25 MG PO (18:07)
--- NOTE | 2025-04-25 19:08 | PTCARENOTE ---
Pt continues with BL wrist restraints for safety. Orthostatic vitals done during shift. Family in to visit. Checked frequently throughout shift, call mcarthur within reach.
--- NOTE | 2025-04-25 19:27 | CON.NEURO ---
Neuro Assessment/Plan
Assessment
Parkinson's disease with progression, acutely exacerbated. improved with fluids/antibiotics.
I (correctly) guessed she has parkinson's 15-20 years based on DBS, severity, meds
discussed with patient, dtr on the phone, friend/PT at bedside, worsening gait, retropulsion, falls at night going to bathroom, visual hallucination dogs in the room, orthostatic dizziness, these are typical parkinson's symptoms with mild dementia,
advise making no changes as in hospital she looks different from outpatient, so these should be addressed as outpatient. discussed/answered questions re: increasing sinemet to QID for motor symptoms, decreasing/stopping Gocovri 2/2 side effects
potentially worsening visual hallucinations, restarting seroquel (she has not been taking as outpatient but getting here), unclear which symptoms she wants me to rx. symptomatic fluctuation due to old age/neurodegenerative disease physical and
mental fragility, can fluctuate based on Sinemet which she does not take regularly, dehydration, eating, sleeping, etc. And she can easily decompensate with acute illness with longer/more difficult recovery. unfortunately, I have no idea how to keep
her from getting sick every month
in the end decided to make no changes
Consultation
Order
Date of Consultation: 04/25/25
Requesting Provider: Pako Mitchell
Reason for Consult: Parkinson's
Subjective/Objective
Subjective Data
Date of Service: April 25, 2025
from h&p
79-year-old female with past medical history of Parkinson's, deep brain stimulator, hypertension, recent UTI brought by family with frequent falls. patient stated that her balance is off and she is falling frequently. the last fall was yesterday in
the kitchen and she hit back of her on the cabinet. she supposed to use walker but barely uses it. she complained of dizzy. denied HERNANDEZ. as per family she hallucinating recently. she is at times more confused. denied fever, chills, congestion and
cough. denied abdominal pain,n,v,d. denied dysuria or hematuria. Patient was diagnosed with UTI a couple weeks ago and seen here on April 09 for weakness diagnosed with dehydration at that time. her neurology thinks that her symptoms are related to
UTI.
declining since September, getting sick with UTI every month except this time ?pneumonia. Looked great when she saw her parkinson's neurologist at [facility] ~2 weeks go. recent symptoms include balance, retropulsion, falling when she gets out of bed
in the middle of the night, vivid nightmares (no RBD), confusion,
Objective Data
Vital Signs
Temp Pulse Resp BP Pulse Ox
37.1 C 82 18 124/70 97
04/25/25 15:00 04/25/25 15:00 04/25/25 15:00 04/25/25 15:00 04/25/25 15:00
Lab Results
04/25/25 05:59
04/25/25 05:59
Sodium 145 mmol/L (135-145) 04/25/25 05:59
Potassium 4.2 mmol/L (3.5-5.1) 04/25/25 05:59
BUN 24 mg/dl (7-17) H 04/25/25 05:59
Glucose 86 mg/dl (70-99) 04/25/25 05:59
Calcium 9.0 mg/dl (8.4-10.2) 04/25/25 05:59
Vitamin B12 925 pg/ml (239-931) 04/24/25 10:22
Patient Allergies
No Known Allergies Allergy (Verified 04/21/25 10:58)
Physical Exam
-
elderly, frail
AAOx self/age
temporal wasting, muscle atrophy
moderate bradykinesia and cogwheel rigidity
Medications
-
Active Medications
Generic Name Dose Route Start Last Admin
Trade Name Freq PRN Reason Stop Dose Admin
Acetaminophen 650 mg 04/21/25 16:48
Acetaminophen 325 Mg Tablet PO 05/19/25 16:47
Q4HPRN PRN
mild pain/HERNANDEZ/temp> 100.4F
Amlodipine Besylate 5 mg 04/22/25 08:00 04/25/25 09:52
Amlodipine 5 Mg Tablet PO 05/20/25 07:59 5 mg
DAILY SHARI Administration
Bisacodyl 10 mg 04/21/25 16:48
Bisacodyl 10 Mg Rectal Suppository RECTAL 05/19/25 16:47
[id number] PRN
constipation
Carbidopa/Levodopa 2 tablet 04/21/25 16:48 04/25/25 15:41
Carbidopa (25 Mg)/Levodopa (100 Mg) Regular Release Tablet PO 05/19/25 16:47 2 tablet
TID SHARI Administration
Ceftriaxone Sodium 1,000 mg 04/24/25 16:00 04/25/25 15:41
Ceftriaxone 1000 Mg / 10 Ml Vial IV 1,000 mg
Q24H SHARI Administration
Cyanocobalamin 1,000 mcg 04/22/25 08:00 04/25/25 09:51
Cyanocobalamin 1,000 Mcg Tablet PO 05/20/25 07:59 1,000 mcg
DAILY SHARI Administration
Doxycycline Hyclate 100 mg 04/25/25 20:00
Doxycycline 100 Mg Capsule PO
Q12 SHARI
Enoxaparin Sodium 40 mg 04/21/25 18:00 04/25/25 17:11
Enoxaparin Sodium 40 Mg/0.4 Ml Syringe SC 05/19/25 17:59 40 mg
QPM SHARI Administration
Sodium Chloride 1,000 mls @ 75 mls/hr 04/25/25 13:00 04/25/25 15:42
Nss IV 1,000 mls
.[id number] SHARI Administration
Levetiracetam 500 mg 04/21/25 20:00 04/25/25 09:51
Levetiracetam 500 Mg Regular Release Tablet PO 05/19/25 19:59 500 mg
BID SHARI Administration
Magnesium Oxide 250 mg 04/23/25 10:15 04/25/25 17:11
Magnesium Oxide 500 Mg Tablet PO 05/21/25 10:14 250 mg
QPM SHARI Administration
Melatonin 5 mg 04/24/25 22:00 04/24/25 23:17
Melatonin 5 Mg Tablet PO 05/22/25 21:59 Not Given
HS SHARI
Methenamine Hippurate 1 gram 04/21/25 20:00 04/24/25 09:03
Methenamine Hippurate 1 Gram Tablet PO 1 gram
On Hold: 04/24/25 18:42 BID SHARI Administration
Amantadine Hcl [ 0 mg 04/24/25 22:00 04/24/25 23:17
Gocovri] 137 Mg PO 05/22/25 21:59 Not Given
Capsule Er.2 Caps HS SHARI
Nightly
Carbidopa 25 Mg 0 mg 04/25/25 08:00 04/25/25 09:52
Tablet.1tab Every PO 05/23/25 07:59 25 mg
Morning With 1st DAILY SHARI Administration
Dose Of Carbidopa/
Levodopa
Polyethylene Glycol 17 grams 04/21/25 16:48
Polyethylene Glycol Powder 17 Grams Packet PO 05/19/25 16:47
DAILYPRN PRN
constipation
Quetiapine Fumarate 25 mg 04/24/25 19:00 04/25/25 18:07
Quetiapine 25 Mg Tablet PO 05/22/25 18:59 25 mg
DAILY@1900 SHARI Administration
Rasagiline 1 mg 04/22/25 08:00 04/25/25 09:51
Rasagiline (Azilect) 0.5 Mg Tablet (Non-Form) PO 05/20/25 07:59 1 mg
DAILY SHARI Administration
Senna/Docusate Sodium 1 tablet 04/21/25 16:48 04/24/25 15:55
Docusate W/Senna (Shivani-Colace) Tablet PO 05/19/25 16:47 1 tablet
BIDPRN PRN Administration
constipation
Sodium Bicarbonate 650 mg 04/25/25 16:00 04/25/25 15:41
Sodium Bicarbonate 650 Mg Tablet PO 05/23/25 15:59 650 mg
TID SHARI Administration
Sodium Chloride 0 flush 04/24/25 16:00
Sodium Chloride 0.9% (Flush) Syringe IV 05/22/25 15:59
PER PROTOCOL SHARI
Sterile Water 10 ml 04/24/25 16:00 04/25/25 15:41
Sterile Water For Injection 10 Ml Vial IV 05/22/25 15:59 10 ml
Q24H SHARI Administration
Home Medications
�Medication �Instructions �Recorded
amantadine HCl 137 mg 274 mg PO HS Neurological Condition 02/18/25
capsule,extended release 24 hr
(Gocovri)
carbidopa 25 mg tablet 25 mg PO DAILY PARKINSON 02/18/25
carbidopa 25 mg-levodopa 100 mg 2 tab PO TID PARKINSON'S 02/18/25
tablet
levetiracetam 500 mg tablet 500 mg PO BID Seizures 02/18/25
(Keppra)
quetiapine 25 mg tablet (Seroquel) 25 mg PO HS Mental Health/Anxiety 02/18/25
rasagiline 1 mg tablet 1 mg PO DAILY PARKINSON 02/18/25
methenamine hippurate 1 gram tablet 1 g PO BID #60 tabs 02/24/25
amlodipine 2.5 mg tablet 2.5 mg PO DAILY Blood Pressure 04/21/25
clonazepam 0.5 mg tablet 0.5 mg PO HS Sleep 04/21/25
cyanocobalamin (vitamin B-12) 1,000 mcg PO QPM Supplement 04/21/25
1,000 mcg tablet (Vitamin B-12)
magnesium 250 mg tablet 250 mg PO QPM Supplement 04/21/25
[2025-04-25] MEDS: VIBRAMYCIN 100 MG PO (20:15)
[2025-04-25] MEDS: MELATONIN 5 MG PO (22:08)
[2025-04-25] MEDS: NON-FORMULARY ITEM 274 MG PO (22:08)
[2025-04-25 23:42] VITALS: BP 129/76
[2025-04-26] MEDS: NSS 1000 IV ×2 (04:44→16:00)
[2025-04-26 06:00] VITALS: BMI 18.8
[2025-04-26 07:00] VITALS: BP 133/69
[2025-04-26] MEDS: RASAGILINE MESYLATE 1 MG PO (08:23)
[2025-04-26] MEDS: SINEMET 25-100 2 TABLET PO ×3 (08:23→21:33)
[2025-04-26] MEDS: VIBRAMYCIN 100 MG PO ×2 (08:24→20:06)
[2025-04-26] MEDS: NON-FORMULARY ITEM 25 MG PO (08:24)
[2025-04-26] MEDS: SODIUM BICARBONATE 650 MG PO ×3 (08:24→21:34)
[2025-04-26] MEDS: NORVASC 5 MG PO (08:24)
[2025-04-26] MEDS: KEPPRA 500 MG PO ×2 (08:24→20:06)
[2025-04-26] MEDS: VITAMIN B-12 1000 MCG PO (08:24)
--- NOTE | 2025-04-26 12:53 | CON.MD ---
Consultation - Medical
-
patient seen chart reviewed. discussed with nursing and with neuro. d in room . consult done today april 26 2025 patient is well known to me. i had seen her in february 2025 for issues similar to today. she has parkinson's disease and has occasional
visual hallucinations. she does not have auditory hallucinations. they typically occur when she is here. she has hx frequent uti and is currently being hydrated and is on antibiotics. she is medicated currently w klonopin total 1. 5 mg daily
symmetrel sinemet keppra for sz and seroquel 25 q hs which she only takes in hospital. d tells me that at this point her mental status is normal for her. she may have mild cognitive impairment but when seen by this securities underwriter today patient was quite
cooperative and pleasant. her interactions with me were generally appropriate. patient denies depression or unmanageable anxiety . appetite ok. sleep okay. d feels biggest issue is balance and the uti. d takes her to PT regularly. patient brought
to after falling when noted to be dizzy and somewhat confused
past psych hx see above
medical many issues PD... noted to have fx vertebrae fx humerus there are findings on abd and lung cat which are to be assessed. weight loss htn sz disorder frequent uti she has a deep brain stimulator walks with walker frequent falls
fh non contributory
substance abuse not
social resides in appt in d's home with h supportive family
mse alert xo3 cooperative pleasant speech and thought process normal no psychosis mood is good affect normal no si no hi may be mild cognitive but according to d gets along relatively well in the home. insight judgment at this moment ok
dx mild cognitive impairment resolved tme likely secondary to uti
plan seroquel while here but dc on discharge. uti seems to precipitate mental status change. d says recurrent uti is big issue;. patient admits she wipes herself from back to front exposing self to risk of uti. she says 'i 've done it for 72 years'
educated her as to the importance of better hygiene;. she is seeing disability specialist urologist next week hopefully they will educate her and emphasize this. recommend continuing pt for balance and falling. psych signing off.
--- NOTE | 2025-04-26 14:16 | CM ---
Chart reviewed
updated Liaison Linda at [facility] SNF
updated careport
no preauth needed
PLAN: SNF, pending bed availability when medically stable
[2025-04-26 15:02] VITALS: BP 112/65
[2025-04-26 15:56] VITALS: BP 118/64; BP 141/78; PULSE 80; PULSE 81; O2SAT 96
[2025-04-26] MEDS: ROCEPHIN 1000 MG IV (16:02)
[2025-04-26] MEDS: STERILE WATER FOR INJECTION 10 ML IV (16:02)
--- NOTE | 2025-04-26 16:47 | W.PN.HOSP.TC ---
Today's Communication/Plan
-
Patient should be medically ready for discharge to rehab soon
Assessment / Plan
Assessment / Plan
79-year-old female with falls she supposed to use a walker but barely uses it. She has confusion episodes since September with UTIs. She and her lives on Daughter's property . Functions.ADL independent, showers, eats on her Own. Tremors are
worse. She has been taking her meds as prescribed. She drove herself to ER on 04/09/25 ( gave her the hodgson) She was seen in ER and was discharged. She came for a UTI.
Shoulder X ray- Probable soft tissue calcifications versus tiny avulsion fractures about the left humeral head. See above. Clinical correlation recommended.Moderate AC joint and glenohumeral joint osteoarthritis.Bony demineralization
X ray -L Spine- Findings suggesting acute mildly displaced fracture of the L2 left transverse process.
CT chest abdomen pelvis-mild thank you right upper lobe groundglass opacities probably parenchymal scarring. Interstitial lung disease or developing pneumonia masses cannot be excluded especially considering patient's history PET imaging
recommended. Mild right lower lobe consolidation likely atelectasis. Too small to characterize hypodense hepatic lesions cyst versus hemangioma. Bilateral too small to characterize hypodense renal lesions likely benign cyst. Mild fecal material
in the colon. Acute appearing L1-L3 transverse process fractures additional old fractures noted upper thoracic spine shows a sclerotic vertebral body therefore a pathological fracture due to osseous metastatic disease cannot be excluded.
CVS: S1-S2 normal
Chest: CTA B/L
Abdomen: Soft, NT / Bowel sounds present
Extremities: No edema, normal pulses
HOUSE COORDINATOR: She seems to be much better today
# Increased falls likely secondary to Parkinson disease
Daughter states that patient has been declining since September
Periods Of confusion starting since September
Ortho static vitals ordered - not done
Discussed with daughter patient cannot get an MRI unless she is at [place] due to the deep brain stimulator.
EEG without any acute changes
Neurology evaluation and Psyche eval
Started ceftriaxone and doxycycline for pneumonia-NOS
COVID neg
#Acute mildly displaced fracture of the L1- L3 left transverse process
Pain control
TLSO brace ordered for PT
PT OT
# Possible soft tissue calcification versus tiny avulsion fracture of the left humeral head
Orthopedics evaluation Appreciated
No interventions, OP Follow up.
Since on restraints she is not able to wear the brace
# Weight loss 30- 35 lbs Since September. CAT scan as above. Needs outpatient workup including PET scan . D/W Daughter.
# Acute Kidney Injury-resolved with IV fluids
# Parkinson disease- Deep Brain Stimulator in 2019 for tremors- continue Sinemet, Amantadine and Rasagiline. Seroquel for symptoms.
# Hypertension-Continue Norvasc
# Seizure Disorder -Continue Keppra. No seizures on EEG.
# Constipation-Continue bowel regimen
# Moderate protein calorie Malnutrition
# DVT prophylaxis-Lovenox
# DNR status
D/W at bedside
Discussed with nursing
Discussed with neurology
Part of this note was created using voice recognition system. Occasional wrong word or��sound alike� substitutions may have inadvertently occurred due to the inherent limitations of voice recognition software. If noted kindly bring it to my
attention for correction.
Anticipated Discharge: Within 24 hours
Subjective/Interval History
-
Date of Service: April 26, 2025
Objective Data
-
Vital Signs:
Vital Signs
Temp Pulse Resp BP Pulse Ox
98.3 F 69 17 112/65 97
04/26/25 15:02 04/26/25 15:02 04/26/25 15:02 04/26/25 15:02 04/26/25 15:02
I&O
04/25/25 04/26/25 04/27/25
06:59 06:59 06:59
Intake Total 240 / 240 500 / 500
Balance 240 / 240 500 / 500
[2025-04-26] MEDS: MAGNESIUM OXIDE 250 MG PO (17:30)
[2025-04-26] MEDS: LOVENOX 40 MG SC (17:30)
[2025-04-26] MEDS: SEROQUEL 25 MG PO (18:16)
[2025-04-26] MEDS: NON-FORMULARY ITEM 274 MG PO (21:33)
[2025-04-26] MEDS: MELATONIN 5 MG PO (21:33)
[2025-04-26] MEDS: SENOKOT-S 1 TABLET PO (22:47)
[2025-04-26 23:00] VITALS: BP 115/75
[2025-04-27 04:57] VITALS: BMI 19.5
[2025-04-27 07:00] VITALS: BP 138/76
[2025-04-27] MEDS: VIBRAMYCIN 100 MG PO (08:55)
[2025-04-27] MEDS: SODIUM BICARBONATE 650 MG PO (08:55)
[2025-04-27] MEDS: RASAGILINE MESYLATE 1 MG PO (08:55)
[2025-04-27] MEDS: SINEMET 25-100 2 TABLET PO (08:55)
[2025-04-27] MEDS: NON-FORMULARY ITEM 25 MG PO (08:56)
[2025-04-27] MEDS: KEPPRA 500 MG PO (08:56)
[2025-04-27] MEDS: NORVASC 5 MG PO (08:56)
[2025-04-27] MEDS: VITAMIN B-12 1000 MCG PO (08:57)
--- NOTE | 2025-04-27 10:59 | W.PN.HOSP.TC ---
Addendum entered and electronically signed by Pako Mitchell MD 04/27/25 14:53:
Dictation- [id number]
Original Note:
Today's Communication/Plan
-
Labs
If Ok discharge
Assessment / Plan
Assessment / Plan
79-year-old female with falls she supposed to use a walker but barely uses it. She has confusion episodes since September with UTIs. She and her lives on Daughter's property . Functions.ADL independent, showers, eats on her Own. Tremors are
worse. She has been taking her meds as prescribed. She drove herself to ER on 04/09/25 ( gave her the hodgson) She was seen in ER and was discharged. She came for a UTI.
Shoulder X ray- Probable soft tissue calcifications versus tiny avulsion fractures about the left humeral head. See above. Clinical correlation recommended.Moderate AC joint and glenohumeral joint osteoarthritis.Bony demineralization
X ray -L Spine- Findings suggesting acute mildly displaced fracture of the L2 left transverse process.
CT chest abdomen pelvis-mild thank you right upper lobe groundglass opacities probably parenchymal scarring. Interstitial lung disease or developing pneumonia masses cannot be excluded especially considering patient's history PET imaging
recommended. Mild right lower lobe consolidation likely atelectasis. Too small to characterize hypodense hepatic lesions cyst versus hemangioma. Bilateral too small to characterize hypodense renal lesions likely benign cyst. Mild fecal material
in the colon. Acute appearing L1-L3 transverse process fractures additional old fractures noted upper thoracic spine shows a sclerotic vertebral body therefore a pathological fracture due to osseous metastatic disease cannot be excluded.
CVS: S1-S2 normal
Chest: CTA B/L
Abdomen: Soft, NT / Bowel sounds present
Extremities: No edema, normal pulses
SHOE REPAIRMAN: She seems to be much better today, back to baseline.
# Increased falls likely secondary to Parkinson disease
Daughter states that patient has been declining since September
Periods Of confusion starting since September
Ortho static vitals ordered - not done
Discussed with daughter patient cannot get an MRI unless she is at [place] due to the deep brain stimulator.
EEG without any acute changes
Neurology evaluation and Psyche eval
Started ceftriaxone and doxycycline for pneumonia-NOS
COVID neg
#Acute mildly displaced fracture of the L1- L3 left transverse process
Pain control
TLSO brace ordered for PT
PT OT
# Possible soft tissue calcification versus tiny avulsion fracture of the left humeral head
Orthopedics evaluation Appreciated
No interventions, OP Follow up.
Sling
# Weight loss 30- 35 lbs Since September. CAT scan as above. Needs outpatient workup including PET scan . D/W Daughter.
# Acute Kidney Injury-resolved with IV fluids
# Parkinson disease- Deep Brain Stimulator in 2019 for tremors- continue Sinemet, Amantadine and Rasagiline. Seroquel for symptoms.
# Hypertension-Continue Norvasc
# Seizure Disorder -Continue Keppra. No seizures on EEG.
# Constipation-Continue bowel regimen
# Moderate protein calorie Malnutrition
# DVT prophylaxis-Lovenox
# DNR status
D/W daughter on the phone.
Pt back to baseline.
Discussed with nursing
D/w case management
Part of this note was created using voice recognition system. Occasional wrong word or��sound alike� substitutions may have inadvertently occurred due to the inherent limitations of voice recognition software. If noted kindly bring it to my
attention for correction.
Anticipated Discharge: Within 24 hours
Subjective/Interval History
-
Date of Service: April 27, 2025
Objective Data
-
Vital Signs:
Vital Signs
Temp Pulse Resp BP Pulse Ox
97.4 F 71 16 138/76 97
04/27/25 07:00 04/27/25 08:56 04/27/25 07:00 04/27/25 08:56 04/27/25 07:00
I&O
04/26/25 04/27/25 04/28/25
06:59 06:59 06:59
Intake Total 500 / 500 1680 / 1680
Balance 500 / 500 1680 / 1680
--- NOTE | 2025-04-27 11:57 | PTCARENOTE ---
Applied sling to pt's left arm, adjusted for comfort. Pt states she will bot wear sling at home. Educated patient on importance of keeping left arm immobile so that it can heal.
[2025-04-27 12:00] LABS: Blood Urea Nitrogen 12 mg/dl (7-17); Calcium 8.5 mg/dl (8.4-10.2); Carbon Dioxide 22 mmol/L (22-30); Chloride 113 mmol/L (98-107); Estimated Creatinine Clearance 68 ml/min; Glucose 111 mg/dl (70-99); Potassium 4.2 mmol/L (3.5-5.1); Sodium 143 mmol/L (135-145); eGFR > 60.00
--- NOTE | 2025-04-27 13:27 | CM ---
Met with patient and daughter Cathy at bedside
Bed available today at [facility]
Spoke with Linda dawn
IMM explained & signed
PLAN: [facility] today
Report #: [phone]
Fax #: [phone]
daughter to transport
[2025-04-27 13:44] LABS: Syphilis/T. pallidum Ab Reflex Negative (Negative)
--- NOTE | 2025-04-27 14:36 | W.DS.TRANS ---
DC Summary - [facility]
-
Discharge Instructions:
Discharge Diagnosis/Procedures Parkinson disease
L1-L3 transverse process fractures
Mental status change secondary to pneumonia and
dehydration
Small avulsion fracture of the left humeral head
Acute kidney injury
Parkinson disease
Hypertension
Seizure
Constipation
Diet As tolerated
Additional Activity Would not lift or weight-bear through the LUE.
Sling.
Driving Restrictions No driving
Other Services PT,OT
Instructions:
Stand-Alone Forms:
Changes to Home Medications: Yes
Discharge Medications:
DC Medications w/original date entered in [employer]
amantadine HCl 137 mg capsule,extended release 24 hr (Gocovri) 274 mg PO HS Neurological Condition 02/18/25
carbidopa 25 mg tablet 25 mg PO DAILY PARKINSON 02/18/25
carbidopa 25 mg-levodopa 100 mg tablet 2 tab PO TID PARKINSON'S 02/18/25
levetiracetam 500 mg tablet (Keppra) 500 mg PO BID Seizures 02/18/25
quetiapine 25 mg tablet (Seroquel) 25 mg PO HS Mental Health/Anxiety 02/18/25
rasagiline 1 mg tablet 1 mg PO DAILY PARKINSON 02/18/25
methenamine hippurate 1 gram tablet 1 g PO BID #60 tabs 02/24/25
Held on 04/27/25. Instructions: Resume on 05/02/25.
amlodipine 2.5 mg tablet 2.5 mg PO DAILY Blood Pressure 04/21/25
cyanocobalamin (vitamin B-12) 1,000 mcg tablet (Vitamin B-12) 1,000 mcg PO QPM Supplement 04/21/25
magnesium 250 mg tablet 250 mg PO QPM Supplement 04/21/25
cefuroxime axetil 500 mg tablet 500 mg PO BID Lung/breathing issues #8 tabs 04/27/25
clonazepam 0.5 mg tablet 0.5 mg PO HS Sleep #2 tabs 04/27/25
cyanocobalamin (vitamin B-12) 1,000 mcg tablet (Vitamin B-12) 1,000 mcg PO DAILY Supplement #0 tabs 04/27/25
doxycycline hyclate 100 mg capsule 100 mg PO Q12 Lung/breathing issues #8 caps 04/27/25
melatonin 5 mg tablet 5 mg PO HS Sleep #0 tabs 04/27/25
polyethylene glycol 3350 17 gram oral powder packet 17 g PO DAILY Constipation #0 ea 04/27/25
Home Medication Changes
New
Melatonin, MiraLAX, doxycycline, cefuroxime
Pending Results: No
--- NOTE | 2025-04-27 14:58 | W.DS.TRANS ---
DC Summary - [employer]
-
Discharge Instructions:
Discharge Diagnosis/Procedures Parkinson disease
L1-L3 transverse process fractures
Mental status change secondary to pneumonia and
dehydration
Small avulsion fracture of the left humeral head
Acute kidney injury
Parkinson disease
Hypertension
Seizure
Constipation
Diet As tolerated
Additional Activity Would not lift or weight-bear through the LUE.
Sling.
Driving Restrictions No driving
Other Services PT,OT
Instructions:
Stand-Alone Forms:
Changes to Home Medications: Yes
Discharge Medications:
DC Medications w/original date entered in [employer]
amantadine HCl 137 mg capsule,extended release 24 hr (Gocovri) 274 mg PO HS Neurological Condition 02/18/25
carbidopa 25 mg tablet 25 mg PO DAILY PARKINSON 02/18/25
carbidopa 25 mg-levodopa 100 mg tablet 2 tab PO TID PARKINSON'S 02/18/25
levetiracetam 500 mg tablet (Keppra) 500 mg PO BID Seizures 02/18/25
quetiapine 25 mg tablet (Seroquel) 25 mg PO HS Mental Health/Anxiety 02/18/25
rasagiline 1 mg tablet 1 mg PO DAILY PARKINSON 02/18/25
methenamine hippurate 1 gram tablet 1 g PO BID #60 tabs 02/24/25
Held on 04/27/25. Instructions: Resume on 05/02/25.
amlodipine 2.5 mg tablet 2.5 mg PO DAILY Blood Pressure 04/21/25
cyanocobalamin (vitamin B-12) 1,000 mcg tablet (Vitamin B-12) 1,000 mcg PO QPM Supplement 04/21/25
magnesium 250 mg tablet 250 mg PO QPM Supplement 04/21/25
cefuroxime axetil 500 mg tablet 500 mg PO BID Lung/breathing issues #8 tabs 04/27/25
clonazepam 0.5 mg tablet 0.5 mg PO HS Sleep #2 tabs 04/27/25
cyanocobalamin (vitamin B-12) 1,000 mcg tablet (Vitamin B-12) 1,000 mcg PO DAILY Supplement #0 tabs 04/27/25
doxycycline hyclate 100 mg capsule 100 mg PO Q12 Lung/breathing issues #8 caps 04/27/25
melatonin 5 mg tablet 5 mg PO HS Sleep #0 tabs 04/27/25
polyethylene glycol 3350 17 gram oral powder packet 17 g PO DAILY Constipation #0 ea 04/27/25
Home Medication Changes
new
doxycycline hyclate 100 mg capsule 100 mg PO Q12 Lung/breathing issues #8 caps 04/27/25
cefuroxime axetil 500 mg tablet 500 mg PO BID Lung/breathing issues #8 tabs 04/27/25
Pending Results: No
[2025-04-27 15:00] VITALS: BP 123/71
== END 2025-04-27 15:19 | DRG 682 ==
LOC: 3 WEST ACU 08:55
PROVIDERS: Nurse Practitioner; Registered Nurse; ADMITTING PHYSICIAN Hospitalist; ATTENDING PHYSICIAN Hospitalist; CONSULT PHYSICIAN Orthopaedic Surgery; CONSULT PHYSICIAN Psychiatry & Neurology Clinical Neurophysiology; CONSULT PHYSICIAN Psychiatry & Neurology Psychiatry; EMERGENCY PHYSICIAN Student in an Organized Health Care Education/Training Program; FAMILY PHYSICIAN Family Medicine
DX: N17.9 Acute kidney failure, unspecified (principal); G93.41 Metabolic encephalopathy; J18.9 Pneumonia, unspecified organism; S42.292A Other displaced fracture of upper end of left humerus, initial encounter for closed fracture; S32.039A Unspecified fracture of third lumbar vertebra, initial encounter for closed fracture; S32.029A Unspecified fracture of second lumbar vertebra, initial encounter for closed fracture; S32.019A Unspecified fracture of first lumbar vertebra, initial encounter for closed fracture; E44.0 Moderate protein-calorie malnutrition; F02.A2 Dementia in other diseases classified elsewhere, mild, with psychotic disturbance; F02.A4 Dementia in other diseases classified elsewhere, mild, with anxiety; G20.A1 Parkinson's disease without dyskinesia, without mention of fluctuations; K59.00 Constipation, unspecified; Z66 Do not resuscitate; I10 Essential (primary) hypertension; Z87.440 Personal history of urinary (tract) infections; R29.6 Repeated falls; W19.XXXA Unspecified fall, initial encounter; E86.0 Dehydration; Z78.1 Physical restraint status
CPT/HCPCS: 70450; 71260; 72110; 73030; 74177; 80048; 80053; 81003; 81015; 82607; 83735; 84443; 84484; 85025; 85027; 86780; 87811; 93005; 95816; 97116; 97163; 97167; 97530; 97535; 99285; Q9967

== ENCOUNTER 2025-06-13 20:41 | Observation (INO) | payer MEDICARE, BC, SELFPAY ==
[2025-06-13 14:14] LABS: Hematocrit 33.2 % (37.0-47.0); Hemoglobin 11.2 g/dL (12.0-16.0); Mean Corp Hgb Conc. 33.7 g/dL (33.0-37.0); Mean Corpuscular Volume 89.7 fL (81.0-99.0); Nucleated Red Blood Cells % 0 %; Platelet Count 312 10^3/uL (130-400); Red Cell Dist. Width 13.8 % (11.5-14.5)
[2025-06-13 14:27] LABS: AST (SGOT) 115 U/L (14-36); Albumin 4.7 g/dl (3.5-5.0); Alkaline Phosphatase 146 U/L (38-126); Blood Urea Nitrogen 31 mg/dl (7-17); Calcium 9.8 mg/dl (8.4-10.2); Carbon Dioxide 18 mmol/L (22-30); Chloride 105 mmol/L (98-107); Glucose 118 mg/dl (70-99); Potassium 4.4 mmol/L (3.5-5.1); Sodium 138 mmol/L (135-145); Total Protein 6.9 g/dl (6.3-8.2); eGFR 33.01
[2025-06-13 14:34] LABS: ALT (SGPT) 39 U/L (0-35)
[2025-06-13 17:09] VITALS: BMI 18.2
--- NOTE | 2025-06-13 17:13 | ED.GENMED ---
History of Present Illness
<Jennifer Schaeffer TECHNICIAN TELECOMMUNICATION SYSTEMS - Last Filed: 06/13/25 17:19>
General
Chief Complaint: Change in Mental Status
Time Seen by Provider: 06/13/25 17:14
History of Present Illness
History of Present Illness:
E
<Micheline Awan MD, Resident - Last Filed: 06/13/25 19:32>
General
Source: patient
Exam Limitations: none
Nursing documentation reviewed up to this point in time: agreed with
History of Present Illness
History of Present Illness:
Ms. Ina Greene is a 79-year-old female with a PMH notable for Parkinson's disease, seizures, hypertension, who is presenting for persistent confusion and difficulty walking.
After several weeks of seeming more confused to her family, yesterday she was talking to herself persistently, talking to her remote, and petting objects.
When she is standing, she tends to lean backwards, so caregivers constantly support her back. Her decreased ability to walk has progressed to caregivers needing to hold her up while she walks, as she cannot support her own weight. Physical therapy,
she cannot stand and can only do sitting exercises. She signed herself out of physical therapy, because she did not want to do it.
Her medications include clonazepam 0.5 mg at night, levetiracetam, quetiapine, sertraline, carbidopa, amantadine. She took methenamine hippurate for UTI prophylaxis and was stopped 7 days ago by the LIGHT RAIL TRAIN OPERATOR due to concern for delirium side effect.
Past History
<Jennifer Schaeffer TECHNICIAN TE[employer]COMMUNICATION SYSTEMS - Last Filed: 06/13/25 17:19>
Social History
Tobacco: Non-smoker
Alcohol: Occasional
Drug: None
Personal:
Living: with family
Employment: Retired
Review of Systems
<Micheline Awan MD, Resident - Last Filed: 06/13/25 19:32>
Review of Systems
All Other Systems: ROS reviewed and negative except as documented in HPI and ROS
Phy Exam
<Micheline Awan MD, Resident - Last Filed: 06/13/25 19:32>
Physical Exam
Physical Exam:
General: Trembling consistent with Parkinson's disease
No acute distress
Cachectic
Neuro:
Sometimes responds off topic
5 out of 5 hand strength / squeeze bilaterally
Able to lift both legs
No dysmetria on [id number]
Eyes: PERRL, conjunctivae hyperemic
Heart: Normal rate and rhythm
Lungs: Clear to auscultation bilaterally
Extremities: No pedal edema
Bruises on shins and knees
Ecchymoses on forearms
Course
<Jennifer Schaeffer TECHNICIAN TE[employer]COMMUNICATION SYSTEMS - Last Filed: 06/13/25 17:19>
Orders/Labs/Results
Orders:
Orders
06/13/25 14:00
CMP [Comprehensive Metabolic Panel] Urgent
Complete Blood Count/With Diff Urgent
Creatine Phosphokinase Urgent
Comment: ADD ON
06/13/25 17:58
Add On- LAB Urgent
Tests Added?: CPK
06/13/25 18:24
0.9% Sodium Chloride 1000 ml [Nss] 1,000 ml IV BOLUS
06/13/25 18:25
CT Head W/o Iv Contrast Urgent
Comment:
Reason For Exam: frequent falls and head bumps; confusion/delirium
06/13/25 18:52
Urinalysis Reflex To Culture Urgent
Date Specimen was Collected: 06/13/25
Time Specimen was Collected: 18:42
Urine Microscopic Reflex Cult Urgent
Urine Culture Urgent
RAVI Source: U
Specimen Description:
Date Specimen was Collected: 06/13/25
Time Specimen was Collected: 18:42
Abnormal Lab Results
06/13/25 06/13/25
14:00 18:52
RBC 3.70 L 10^6/uL
(4.20-5.40)
Hgb 11.2 L g/dL
(12.0-16.0)
Hct 33.2 L %
(37.0-47.0)
Absolute Lymphs (auto) 0.4 L 10^3/uL
(1.2-3.4)
Neutrophils % 81.2 H %
(42.2-75.2)
Lymphocytes % 8.1 L %
(20.5-51.1)
Monocytes % 10.3 H %
(1.7-9.3)
Carbon Dioxide 18 L mmol/L
(22-30)
BUN 31 H mg/dl
(7-17)
Creatinine 1.6 H mg/dL
(0.6-1.0)
Glucose 118 H mg/dl
(70-99)
Total Bilirubin 1.8 H mg/dl
(0.2-1.3)
AST 115 H U/L
(14-36)
ALT 39 H U/L
(0-35)
Alkaline Phosphatase 146 H U/L
(38-126)
Urine Ketones 1+ A
(Negative)
Ur Occult Blood Reflex 1+ A
(Negative)
Leukocyte Esterase Rfl 1+ A
(Negative)
Urine Bacteria (Reflex) Few A
(Negative)
Urine Albumin (Reflex) 3+ A
(Neg - Trace)
06/13/25 14:00
06/13/25 14:00
Vital Signs
Initial and Last Documented VS:
Initial Vital Signs
Temp Pulse Resp
98.0 F 99 20
06/13/25 13:44 06/13/25 13:44 06/13/25 13:44
Last Documented Vital Signs
Temp Pulse Resp BP Pulse Ox
98.0 F 99 20 138/101 95
06/13/25 13:44 06/13/25 13:44 06/13/25 13:44 06/13/25 17:22 06/13/25 19:30
<Roosevelt Zapata, DO - Last Filed: 06/13/25 18:17>
Orders/Labs/Results
Orders:
Orders
06/13/25 14:00
CMP [Comprehensive Metabolic Panel] Urgent
Complete Blood Count/With Diff Urgent
Creatine Phosphokinase Urgent
Comment: ADD ON
06/13/25 17:58
Add On- LAB Urgent
Tests Added?: CPK
06/13/25 18:24
0.9% Sodium Chloride 1000 ml [Nss] 1,000 ml IV BOLUS
06/13/25 18:25
CT Head W/o Iv Contrast Urgent
Comment:
Reason For Exam: frequent falls and head bumps; confusion/delirium
06/13/25 18:52
Urinalysis Reflex To Culture Urgent
Date Specimen was Collected: 06/13/25
Time Specimen was Collected: 18:42
Urine Microscopic Reflex Cult Urgent
Urine Culture Urgent
RAVI Source: U
Specimen Description:
Date Specimen was Collected: 06/13/25
Time Specimen was Collected: 18:42
Abnormal Lab Results
06/13/25 06/13/25
14:00 18:52
RBC 3.70 L 10^6/uL
(4.20-5.40)
Hgb 11.2 L g/dL
(12.0-16.0)
Hct 33.2 L %
(37.0-47.0)
Absolute Lymphs (auto) 0.4 L 10^3/uL
(1.2-3.4)
Neutrophils % 81.2 H %
(42.2-75.2)
Lymphocytes % 8.1 L %
(20.5-51.1)
Monocytes % 10.3 H %
(1.7-9.3)
Carbon Dioxide 18 L mmol/L
(22-30)
BUN 31 H mg/dl
(7-17)
Creatinine 1.6 H mg/dL
(0.6-1.0)
Glucose 118 H mg/dl
(70-99)
Total Bilirubin 1.8 H mg/dl
(0.2-1.3)
AST 115 H U/L
(14-36)
ALT 39 H U/L
(0-35)
Alkaline Phosphatase 146 H U/L
(38-126)
Urine Ketones 1+ A
(Negative)
Ur Occult Blood Reflex 1+ A
(Negative)
Leukocyte Esterase Rfl 1+ A
(Negative)
Urine Bacteria (Reflex) Few A
(Negative)
Urine Albumin (Reflex) 3+ A
(Neg - Trace)
06/13/25 14:00
06/13/25 14:00
Vital Signs
Initial and Last Documented VS:
Initial Vital Signs
Temp Pulse Resp
98.0 F 99 20
06/13/25 13:44 06/13/25 13:44 06/13/25 13:44
Last Documented Vital Signs
Temp Pulse Resp BP Pulse Ox
98.0 F 99 20 138/101 95
06/13/25 13:44 06/13/25 13:44 06/13/25 13:44 06/13/25 17:22 06/13/25 19:30
<Micheline Awan MD, Resident - Last Filed: 06/13/25 19:32>
Orders/Labs/Results
Orders:
Orders
06/13/25 14:00
CMP [Comprehensive Metabolic Panel] Urgent
Complete Blood Count/With Diff Urgent
Creatine Phosphokinase Urgent
Comment: ADD ON
06/13/25 17:58
Add On- LAB Urgent
Tests Added?: CPK
06/13/25 18:24
0.9% Sodium Chloride 1000 ml [Nss] 1,000 ml IV BOLUS
06/13/25 18:25
CT Head W/o Iv Contrast Urgent
Comment:
Reason For Exam: frequent falls and head bumps; confusion/delirium
06/13/25 18:52
Urinalysis Reflex To Culture Urgent
Date Specimen was Collected: 06/13/25
Time Specimen was Collected: 18:42
Urine Microscopic Reflex Cult Urgent
Urine Culture Urgent
RAVI Source: U
Specimen Description:
Date Specimen was Collected: 06/13/25
Time Specimen was Collected: 18:42
Abnormal Lab Results
06/13/25 06/13/25
14:00 18:52
RBC 3.70 L 10^6/uL
(4.20-5.40)
Hgb 11.2 L g/dL
(12.0-16.0)
Hct 33.2 L %
(37.0-47.0)
Absolute Lymphs (auto) 0.4 L 10^3/uL
(1.2-3.4)
Neutrophils % 81.2 H %
(42.2-75.2)
Lymphocytes % 8.1 L %
(20.5-51.1)
Monocytes % 10.3 H %
(1.7-9.3)
Carbon Dioxide 18 L mmol/L
(22-30)
BUN 31 H mg/dl
(7-17)
Creatinine 1.6 H mg/dL
(0.6-1.0)
Glucose 118 H mg/dl
(70-99)
Total Bilirubin 1.8 H mg/dl
(0.2-1.3)
AST 115 H U/L
(14-36)
ALT 39 H U/L
(0-35)
Alkaline Phosphatase 146 H U/L
(38-126)
Urine Ketones 1+ A
(Negative)
Ur Occult Blood Reflex 1+ A
(Negative)
Leukocyte Esterase Rfl 1+ A
(Negative)
Urine Bacteria (Reflex) Few A
(Negative)
Urine Albumin (Reflex) 3+ A
(Neg - Trace)
06/13/25 14:00
06/13/25 14:00
Vital Signs
Initial and Last Documented VS:
Initial Vital Signs
Temp Pulse Resp
98.0 F 99 20
06/13/25 13:44 06/13/25 13:44 06/13/25 13:44
Last Documented Vital Signs
Temp Pulse Resp BP Pulse Ox
98.0 F 99 20 138/101 95
06/13/25 13:44 06/13/25 13:44 06/13/25 13:44 06/13/25 17:22 06/13/25 19:30
<Micheline Awan MD, Resident - Last Filed: 06/13/25 19:32>
MDM/Problems Addressed
Differential Diagnosis Includes:
Progression of Parkinson's disease or Parkinson's plus syndrome
Lewy body dementia
Multiple system atrophy
Progressive supranuclear palsy
Corticobasal degeneration
Polypharmacy
Dehydration
Rhabdomyolysis
Malignancy
Seizure, postictal state
Vascular dementia
Intracranial hemorrhage
MDM/Problems Addressed:
CMP: BUN 31, creatinine 1.6 (normal 0.7), bicarb 18, AST 115, ALT 39, ALP 146
CPK: Nonelevated
CBC: Anemia
UA: Contaminated sample. Patient declined straight cath
CT head: No acute intracranial abnormality
IV fluids
She has an JORDY, given her creatinine of 1.6 with her prior creatinine 2 months ago at 0.5-0.7. Her caregiver states she has had no appetite, but they do have encouraged her to drink fluids.
Her postural stability and delirium/hallucinations are consistent with Lewy body dementia/progression of known Parkinson's disease. The patient is unable to independently feed himself or walk. Therefore we are admitting for acute rehab and fluids.
Chronic conditions affecting care: Neurological disorder (Parkinson's disease, seizures), Psychiatric illness (On quetiapine, clonazepam, rasagiline) and Other (Recurrent UTIs)
Acute Exacerbation and/or Progression of Chronic Illness:
Parkinson's disease
<Micheline Awan MD, Resident - Last Filed: 06/13/25 19:32>
*Radiology
Radiology exam reviewed: radiology read reviewed
*Pulse Oximetry
SaO2: 95
Oxygen Mode of Delivery: Room air
Patient hypoxic: no
*EKG
Interpreted by ED Provider?: NA
*Generator Technician Interpretation
Rate: normal
Interpretation: normal
Rhythm: sinus
*Critical Care Note
Total Time (30-74mins, 75-104mins- exclusive of procedures): Not Applicable
ED Attending Note
<Jennifer Schaeffer NP - Last Filed: 06/13/25 17:19>
-
Portions of this chart may have been created with voice recognition software.� Occasional wrong word or��sound alike� substitutions may have occurred due to the inherent limitations of voice recognition software.
<Roosevelt Zapata DO - Last Filed: 06/13/25 18:17>
ED Attending Note
Patient seen and examined by attending physician: Yes
I performed a history and physical exam of patient and discussed management with resident, I reviewed resident's note and agree with documented findings and plan of care.: Yes
ED Attending Note:
I have seen and evaluated the patient with a [id number] encounter. I have spoken to the resident and involved in the medical history, the physical exam, medical decision making.
Evaluation and management service: agree unless noted differently below.
Results interpretation: agree unless noted differently below.
Focused HPI: 79-year-old female with a history of Parkinson's is presenting from home for evaluation of generalized weakness and frequent falls that have progressed over the past 10 days. Family at bedside concerned about her deconditioning,
frequent falls and trouble eating and drinking. Patient signed herself out of rehab last month
Physical exam: Tremor noted. Dry mucous membranes. Heart regular rate and rhythm
Medical Decision Making: Given her frequent falls and safety concerns, will also be admitted for acute rehab evaluation. Blood work consistent with elevated creatinine consistent with her dehydration and decreased water intake. Patient given IV
fluids. Will obtain CT head given frequent falls. Given frequent UTIs, will check UA
Discharge Plan
Departure
Patient Disposition: Admit
Date of Disposition: 06/13/25
Time of Disposition: 19:29
Presentation/result/management discussed w/ accepting MD/DO: Hospitalist
Discharge Problem:
Altered mental status, Falls frequently, Hallucinations, JORDY (acute kidney injury)
Prescriptions:
No Action
quetiapine [Seroquel] 25 mg Tablet
25 mg PO DAILY@1900
levetiracetam [Keppra] 500 mg Tablet
500 mg PO BID
carbidopa 25 mg Tablet
25 mg PO DAILY
carbidopa-levodopa 25-100 mg Tablet
2 tab PO TID
Gocovri 137 mg Capsule,Extended Release 24hr
274 mg PO DAILY@1900
rasagiline 1 mg Tablet
1 mg PO DAILY
magnesium 250 mg Tablet
250 mg PO DAILY@1400
cyanocobalamin (vitamin B-12) [Vitamin B-12] 1,000 mcg tablet
1,000 mcg PO DAILY@1400
fluconazole 200 mg tablet
200 mg PO DAILY
Patient Comments:
06/13/2025, filled on 06/11/2025 and instructed to take 1 tablet daily for 3 days. Per daughter, last dose is to be given tomorrow (06/14/2025).
estradiol 0.01 % (0.1 mg/gram) Cream
1 g VAGINAL .3 TIMES A WEEK
Patient Comments:
06/13/2025, pt. has not been using this med. much recently per daughter.
Gemtesa 75 mg tablet
75 mg PO DAILY
calcium
1 tab PO DAILY@1400
clonazepam 0.5 mg tablet
0.5 mg PO DAILY@1900
Referrals:
Rachael Adames DO [Family Provider]
Interventions
Interventions:
*Risk Screen - Suicide Last Done: 06/13/25 13:44
*General Assessment Last Done: 06/13/25 13:44
*Neglect/Abuse Screening Last Done: 06/13/25 17:09
*ED- Fall Risk Assessment Last Done: 06/13/25 17:35
*ED COVID-19 Vaccine History Last Done: 06/13/25 17:09
ED- Pulmonary Assessment Last Done: 06/13/25 17:09
ED- Neurological Assessment Last Done: 06/13/25 17:09
ED Swallowing Screen Last Done: 06/13/25 17:09
Discharge Date and Time
Print Language: SINHALA
[2025-06-13 17:22] VITALS: BP 138/101
[2025-06-13] MEDS: NSS 1000 IV ×2 (18:50→21:51)
[2025-06-13 19:07] LABS: Urine Character Clear (Clear)
[2025-06-13 19:13] LABS: Urine Squamous Cell 21-25 /LPF (Few); Urine White Cell 0-2 /HPF (0-5)
[2025-06-13 19:14] LABS: Urine Red Blood Cell 0-2 /HPF (0-2)
--- NOTE | 2025-06-13 19:28 | HPS.HSE ---
Family Physician
-
Family Physician: Rachael Adames, DO
Chief Complaint
-
weakness
History of Present Illness
Patient is a 79-year-old female with past medical history significant for Parkinson's disease, seizure and hypertension who presented to [facility] ED for evaluation weakness. Patent reports increased generalized weakness over the past few days and
increased falls recently. She describes fall yesterday of falling into closest, knocking shelves down and having a head strike. Family reported to ED staff recent increased confusion in past several weeks. They described patient yesterday was
persistently speaking to herself, talking to the remote and petting objects. Patient reports frequent falls recently and needing to add a walker to assist her with ambulation. Denies recent illness, fever, chills, cough, shortness of breath, chest
pain, nausea, vomiting or change in bowel or bladder pattern.
Medical History
Past Medical History
Past Medical History: Reports Other
Additional Past Medical History:
Parkinson's disease
seizure
hypertension
Past Surgical History: Reports Other
Additional Past Surgical History:
Deep brain stimulator
Social History
Tobacco: Non-smoker
Alcohol: Occasional
Drug: None
Personal:
Living: With Family
Family History
Family History: Not pertinent
Allergies / Home Medications
Allergies reflects when Allergies were last updated in [employer].
Home Medications with original date entered in [employer]
Allergy/Medication List:
Allergies
Allergy/AdvReac Type Severity Reaction Status Date / Time
No Known Allergies Allergy Verified 06/13/25 13:47
Home Medications
amantadine HCl 137 mg capsule,extended release 24 hr (Gocovri) 274 mg PO DAILY@1900 Neurological Condition 02/18/25
carbidopa 25 mg tablet 25 mg PO DAILY PARKINSON 02/18/25
carbidopa 25 mg-levodopa 100 mg tablet 2 tab PO TID PARKINSON'S 02/18/25
levetiracetam 500 mg tablet (Keppra) 500 mg PO BID Seizures 02/18/25
quetiapine 25 mg tablet (Seroquel) 25 mg PO DAILY@1900 Mental Health/Anxiety 02/18/25
rasagiline 1 mg tablet 1 mg PO DAILY PARKINSON 02/18/25
cyanocobalamin (vitamin B-12) 1,000 mcg tablet (Vitamin B-12) 1,000 mcg PO DAILY@1400 Supplement 04/21/25
magnesium 250 mg tablet 250 mg PO DAILY@1400 Supplement 04/21/25
calcium 1 tab PO DAILY@1400 06/13/25
clonazepam 0.5 mg tablet 0.5 mg PO DAILY@1900 Sleep 06/13/25
estradiol 0.01% (0.1 mg/gram) vaginal cream 1 g vaginal .3 TIMES A WEEK 06/13/25
fluconazole 200 mg tablet 200 mg PO DAILY 06/13/25
vibegron 75 mg tablet (Gemtesa) 75 mg PO DAILY 06/13/25
Review of Systems
-
History Source: Patient and Family
Constitutional: Reports No Symptoms
EENT: Reports No Symptoms
Respiratory: Reports No Symptoms
Cardiac: Reports No Symptoms
Abdomen/GI: Reports No Symptoms
: Reports No Symptoms
Musculoskeletal: Reports Other (frequent falls)
Skin: Reports No Symptoms
Neurological: Reports Dizzy, Weakness and Other (confusion, hallucinations )
Endocrine: Reports No Symptoms
Hematologic/Lymphatic: Reports No Symptoms
Psych: Reports No Symptoms
Physical Exam
Vital Signs
Vital Signs
Temp Pulse Resp BP Pulse Ox
98.0 F 99 20 138/101 95
06/13/25 13:44 06/13/25 13:44 06/13/25 13:44 06/13/25 17:22 06/13/25 18:55
Physical Exam
General: Well Developed, Well Nourished and No Apparent Distress
HEENT: NormoCephalic, Moist mucous membranes and Atraumatic
Respiratory: Clear and Non Labored Respirations
Cardiac: S1/S2 and Regular Rhythm; No Murmur or Rub
Breast: Deferred by me
GI: Soft, Non Tender, Non Distended and Normal Bowel Sounds
Rectal: Deferred by Provider
Genito-urinary: Deferred by me
Musculoskeletal: No Clubbing, No Cyanosis and No Edema
Skin: Warm and IV/Catheter Site
Neuro: Awake, AO x 3, Nonfocal/grossly intact and Tremors
Psych: Calm
Laboratory Results
-
06/13/25 14:00
06/13/25 14:00
Laboratory Results
Total Bilirubin 1.8 mg/dl (0.2-1.3) H 06/13/25 14:00
AST 115 U/L (14-36) H 06/13/25 14:00
ALT 39 U/L (0-35) H 06/13/25 14:00
Alkaline Phosphatase 146 U/L (38-126) H 06/13/25 14:00
Data Reviewed
-
CT Scan: Report Reviewed by me (Head: No acute intracranial abnormality noted.)
Lab Data: Labs Reviewed by me (hgb 11.2, hct 33.2, BUN 31, creat 1.6, Tot Bili 1.8, AST 115, ALT 39, Alk Phos 146)
Impression/Plan
-
IMPRESSION/PLAN:
#generalized weakness
#acute kidney injury
hgb 11.2, hct 33.2, BUN 31, creat 1.6
UA: not indicative of UTI
Head CT: No acute intracranial abnormality noted.
- Admit to med/surg
- IVF NSS 80cc/hr
- trend BMP
- Consult PT/OT
- bladder scan/straight cath protocol
#transaminitis
Tot Bili 1.8, AST 115, ALT 39, Alk Phos 146
- hold fluconazole
- trend LFTs
#seizure
- continue keppra
#Parkinson's disease
- continue carbidopa, Sinemet, Gocovri and rasagiline
#depression/anxiety
- continue clonazepam and Seroquel
#hypertension
Code status: DNR
DVT prophylaxis: heparin sq
--- NOTE | 2025-06-13 19:38 | W.PN.UPDATE ---
Update Note
Progress Note Update
Patient seen in conjunction with LORRIE. I agree the findings on history and physical. I concur with assessment and plan unless stated otherwise.
Briefly, this is a 79-year-old female with past medical history of Parkinson's disease, seizure disorder, recurrent urinary tract infections, persistent confusional state who was recently admitted to the hospital last month with delirium and JORDY and
was found to have pneumonia at that time status post antibiotics with improvement in her mental status and JORDY now presenting to the emergency department with progressive alteration in mental status and gait abnormalities.
According to family member patient has been more confused over the last several weeks and starting yesterday she was persistently talking to herself, talking to inanimate objects and otherwise being incoherent. There was no focal logical deficit.
There was no facial droop. She had no episodes of nausea vomiting or diarrhea. She had no fevers or chills. Family also reports that she has had worsening of her ambulatory capacity. She appears she tends to lean backwards when standing and
needs support for that so now she is mostly sitting. She is not able to support her weight. She is unable to do physical therapy and signed a self out of physical therapy. Denies any recent changes in her medications except discontinuation of the
methenamine hippurate due to concern for delirium.
In the emergency department she had a temp of 98, blood pressure was 138/100 with a pulse of 99 and she was satting 90% on room air. CT of the head was negative. CBC was unremarkable. Electrolytes were stable with a bicarb of 18, BUN was 31 and a
creatinine was up to 1.6 from a baseline of 0.6. AST is elevated 115 with ALT of 39 and a total bilirubin of 1.8. UA was negative.
Assessment and plan
79-year-old female with past medical history of Parkinson's disease with progressive decline in both mental status and gait over the last several weeks with recent episode of metabolic encephalopathy in the setting of pneumonia now presenting again
to the emergency department with apparent hallucinations/confusions, worsening gait. No focal neurological deficits. Workup in the emergency department was negative in terms of acute pathological process except for lab abnormalities including JORDY
with a creatinine of 1.6, transaminitis total bilirubin elevation to 1.8.
JORDY - No h/o obstruction, however w/ parkinson cannot be ruled out. No obvious nephrotoxins and no nsaids.
- admit to med/surg
- IV fluids with LR at 100 ml/hr
- b/s and kidney bladder u/s
- u/a is bland wit no evidence of active sediments or granular casts.
Beharioral changes - Starting yesterday so acute, No obvious infection, stable medications, CT head negative and no trauma. Denies hallucinations.
- urine culture pending
- check xray to rule out infection
- rule out covid
- continue quetiapine
Transaminitis - AST > 2 ALT. Tbili 1.8. No abdominal pain.
- no etoh, on diflucan? hold diflucan
- RUQ u/s
- trend lfts
Gait - Parkinson, progressive symptoms retropulsion, falls at night going to bathroom, visual hallucination dogs in the room, orthostatic dizziness all c/w parkinson and dementia. Seen by neuro here last month thinking her symptoms 'can fluctuate
based on Sinemet which she does not take regularly, dehydration, eating, sleeping, etc. And she can easily decompensate with acute illness with longer/more difficult recovery. unfortunately, I have no idea how to keep her from getting sick every
month' No changes in meds made and symptoms seems similar to last hospitalization.
- continue sinamet and rasagiline
- check b12, folate
- per prior neurology consult may be addressed as outpatient after optimizing fluids and renal function
PT/OT
Case management
DVT PPX - heparin sq
Code status - Full Code
[2025-06-13 21:55] LABS: Folate 7.4 ng/ml (2.76-20); Vitamin B12 542 pg/ml (239-931)
[2025-06-13] MEDS: KEPPRA 500 MG IV (22:23)
[2025-06-13] MEDS: FLUSH (NSS) 1 FLUSH IV (22:53)
[2025-06-14] MEDS: HEPARIN 5000 UNITS SC (00:29)
[2025-06-14 00:30] VITALS: BP 149/130
[2025-06-14 00:34] VITALS: BP 147/116
--- NOTE | 2025-06-14 04:20 | EDRN ---
At 0400 this RN went to do hourly check on patient and she was not breathing,no Vital signs,pt is a DNR.Nurse Practioner gift consultant notified.
--- NOTE | 2025-06-14 04:50 | W.PN.DEATH ---
Pronouncement of
-
Called to see patient to pronounce.
No spontaneous heart tones or respirations noted.
Patient not responsive to verbal stimuli.
Patient is pronounced .
Time of : 04:35
Date of : 06/14/25
Cause of : presumed natural causes by history, parkinsons
Family Notified: No (message left with daughter rebecca)
--- NOTE | 2025-06-14 04:56 | W.PN.UPDATE ---
Update Note
Progress Note Update
Received a TT from pt nurse at 412 that pt was found in bed. Pt was DNR so compressions where not started. RN heard pt mumbling to self at 0330 and at 4 am during rounding RN found her decreased.
Pronounced at 434
Revenue Officer called due to in less that 24hr since admit. Spoke with key bed installer Mckenna Allen who after review stated we can released body to daughter.
Attempted to notify daughter Cathy Elliott but no answer. LEft asking for retun call.
--- NOTE | 2025-06-14 05:04 | W.DCSUMMARY ---
Discharge Summary
Discharge Data
Date of Admission: 06/13/25
Date of Discharge: 06/14/25
-
Pending Results: No
Hospital Course
See HPI. Patient was admitted and started on IV hydration with scheduled studies for JORDY. Within hours of admission she was found unresponsive and pulseless. She had no monitors on and had no prior abnormalities of her vital signs. No infection,
cardiac history. Hx of seizures but non noted recently. No clear etiology for her acute demise.
Discharge Plan
-
Patient Disposition:
Referrals:
Rachael Adames DO [Family Provider]
Prescriptions:
No Action
quetiapine [Seroquel] 25 mg Tablet
25 mg PO DAILY@1900
levetiracetam [Keppra] 500 mg Tablet
500 mg PO BID
carbidopa 25 mg Tablet
25 mg PO DAILY
carbidopa-levodopa 25-100 mg Tablet
2 tab PO TID
Gocovri 137 mg Capsule,Extended Release 24hr
274 mg PO DAILY@1900
rasagiline 1 mg Tablet
1 mg PO DAILY
magnesium 250 mg Tablet
250 mg PO DAILY@1400
cyanocobalamin (vitamin B-12) [Vitamin B-12] 1,000 mcg tablet
1,000 mcg PO DAILY@1400
fluconazole 200 mg tablet
200 mg PO DAILY
Patient Comments:
06/13/2025, filled on 06/11/2025 and instructed to take 1 tablet daily for 3 days. Per daughter, last dose is to be given tomorrow (06/14/2025).
estradiol 0.01 % (0.1 mg/gram) Cream
1 g VAGINAL .3 TIMES A WEEK
Patient Comments:
06/13/2025, pt. has not been using this med. much recently per daughter.
Gemtesa 75 mg tablet
75 mg PO DAILY
calcium
1 tab PO DAILY@1400
clonazepam 0.5 mg tablet
0.5 mg PO DAILY@1900
Discharge Date and Time
Print Language: KAZAKH
== END 2025-06-14 08:05 | disposition expired ==
LOC: ED 20:41
PROVIDERS: Emergency Medicine; ADMITTING PHYSICIAN Internal Medicine; EMERGENCY PHYSICIAN Student in an Organized Health Care Education/Training Program; FAMILY PHYSICIAN Family Medicine
DX: N17.9 Acute kidney failure, unspecified (principal); R56.9 Unspecified convulsions; G20.A1 Parkinson's disease without dyskinesia, without mention of fluctuations; I10 Essential (primary) hypertension; R29.6 Repeated falls; R74.01 Elevation of levels of liver transaminase levels; F32.A Depression, unspecified; F41.9 Anxiety disorder, unspecified; Z66 Do not resuscitate; D64.9 Anemia, unspecified; F02.82 Dementia in other diseases classified elsewhere, unspecified severity, with psychotic disturbance; F02.84 Dementia in other diseases classified elsewhere, unspecified severity, with anxiety; F02.83 Dementia in other diseases classified elsewhere, unspecified severity, with mood disturbance; Z87.440 Personal history of urinary (tract) infections
CPT/HCPCS: 70450; 80053; 81003; 81015; 82077; 82550; 82607; 82746; 85025; 87086; G0378